=== PATIENT | male | born 1960 | race Caucasian/White ===

== ENCOUNTER 2017-07-27 21:34 | Inpatient (IN) | payer OTHER, SELFPAY ==
[~2017-07-27 21:34] MED LIST: ISOVUE-370 76%-LOCM 1 ML ONE
[2017-07-27] MEDS ORDERED: Morphine 4 MG/ML VIAL ONE (22:01)
[2017-07-27] MEDS ORDERED: Ondansetron HCl/PF 4 MG/2 ML Vial ONE (22:01)
[2017-07-27 22:19] LABS: #Eosinphils 0.2 thou/uL (0.0-0.7); #Monocytes 1.1 thou/uL (0.11-0.59); #Neutrophils 7.4 thou/uL (1.40-6.50); %Basophils 0.4 % (0.0-1.0); %Eosinophils 1.9 % (0.0-10.0); %Lymphocytes 18.9 % (21.0-51.0); %Monocytes 10.4 % (0.0-10.0); %Neutrophils 68.3 % (42.0-75.0); Hemoglobin 16.7 g/dL (14.0-18.0); Mean Corpuscular HGB CONC 34.5 g/dL (32.0-36.0); Mean Corpuscular Hemoglobin 33.5 pg (27.0-31.0); Mean Corpuscular Volume 97.3 fl (80.0-94.0); Mean Platelet Volume 7.4 fL (7.4-10.4); Platelet Count 142 thou/uL (130-400); RBC Distribution Width 11.9 % (11.5-14.5); Red Blood Cell (RBC) Count 4.97 mill/uL (4.70-6.10); White Blood Cell (WBC) Count 10.8 thou/uL (4.8-10.8)
[2017-07-27 22:21] LABS: Bilirubin Negative (Negative); Blood, Urine Negative (Negative); Clarity CLEAR (Clear); Glucose, Urine (Dipstick) Negative (Negative); Leukocyte Negative (Negative); Nitrite Negative (Negative); Protein, Urine (Dipstick) Negative (Neg-Trace); Specific Gravity, Urine 1.021 (1.002-1.036); Urobilinogen 0.2 mg/dL (0.2-1.0)
[2017-07-27 22:39] LABS: BUN (Urea Nitrogen) 16 mg/dL (8.4-25.7); Lipase 16 U/L (8-78); Potassium 3.9 mmol/L (3.5-5.1); Protein, Total 6.7 g/dL (6.0-8.3); Sodium 132 mmol/L (136-145)
[2017-07-27] MEDS ORDERED: hydrALAZINE 20 MG/ML VIAL ONE (22:42)
--- NOTE | 2017-07-27 22:55 | CT ---
CT ANGIOGRAM CHEST WITH 3D RENDERING CT ANGIOGRAM ABDOMEN WITH 3D RENDERIN07/27/17 HISTORY: 57-year-old male with history of hypertension and left flank pain. CHEST CT ANGIOGRAM WITH 3D RENDERING: Mild dilatation of the aortic root at 4.0 cm. Three vessel coronary artery calcific disease. Prominen t vascular calcifications of the aorta without evidence of for aneurysm or dissection. The central pu lmonary arteries are free of thrombus. ABDOMINAL CT ANGIOGRAM WITH 3D RENDERING: There are numerous calcific plaques involving the abdominal aorta, particularly the infrarenal abdomi nal aorta where there is some mild to moderate narrowing as well as a somewhat narrowed bifurcation r egion and moderate narrowing of the right and left common iliac arteries worse on the right side with probable 50 to 70% stenosis of the right proximal common iliac artery and approximately 50% stenosis of the more distal aspects of the right and left common iliac arteries. There is a tiny punctate non obstructing calculus in the upper pole of the right kidney. There is very severe hydronephrosis of th e left kidney with a very markedly dilated extrarenal pelvis. Etiology of which is uncertain, this co uld possibly be related to ureteropelvic junction obstruction. No evidence of aortic aneurysm or diss ection. IMPRESSION: No evidence of aortic aneurysm or dissection. Fairly extensive atherosclerotic calcific plaque involv ing the aorta most marked in the infrarenal abdominal aorta at the bifurcation as well as at least mo derate stenotic changes of the right and left arteries. Tiny nonobstructing right renal calculus. Severe di latation of the left renal pelvis and upper collecting system of uncertain etiology possibly from UPJ obstruction. Small focal area of peripheral calcification involving the spleen, possibly related to old injury. Three vessel coronary artery calcific disease. No evidence for other significant acute p rocess. POS: [facility]
[2017-07-27] MEDS ORDERED: HYDROmorphone 0.5 MG/0.5 ML SYRINGE ONE (23:04)
[2017-07-27 23:14] LABS: Albumin 3.8 g/dL (3.5-5.0)
[2017-07-27 23:15] LABS: Calcium 8.8 mg/dL (7.8-10.44); Chloride 101 mmol/L (98-107)
[2017-07-27 23:16] LABS: Glucose 112 mg/dL (70-105)
[2017-07-27 23:18] LABS: Anion Gap 14 mmol/L (10-20); Bilirubin, Total 0.5 mg/dL (0.2-1.2); Carbon Dioxide 21 mmol/L (22-29)
[2017-07-27 23:19] LABS: Alkaline Phosphatase 142 U/L (40-150)
[2017-07-27 23:20] LABS: Calc. Creatinine Clearance 0 mL/min (70-130); Estimated GFR-MDRD 81
[2017-07-27 23:21] LABS: AST (SGOT) 73 U/L (5-34)
[2017-07-27 23:22] LABS: ALT (SGPT) 96 U/L (8-55)
[2017-07-27] MEDS ORDERED: Ketorolac Tromethamine 30 MG/ML VIAL ONE (23:48)
--- NOTE | 2017-07-27 23:53 | PDOC.FPRHP ---
- History of Present Illness Chief Complaint: Left back pain History of Present Illness: Patient laid down tonight to go to bed and he had intense pain on his Left lower back. he had several episodes of vomitting. he had been feeling well. he denies fever. he has not chest pain or shortness of breath. ED Course: Toradol, dilaudid, hydralazine, morphine, zofran - Allergies/Adverse Reactions Allergies Allergy/AdvReac Type Severity Reaction Status Date / Time No Known Drug Allergies Allergy Verified 07/28/17 01:13 - Home Medications Medication Instructions Recorded Confirmed Type No Known [No Known] 07/28/17 07/28/17 History Comments: he takes b12 and fish oil some times. - History PMHx: CAD sp stents HTN thyroid disorder PSHx: cardiac stents FHx: CAD Social: Currently smokes, drinks etoh, uses marijuana - Review of Systems General: reports: fatigue. denies: fever/chills, weight/appetite/sleep changes , night sweats Eyes: denies: eye pain, vision changes ENT: denies: nasal congestion, rhinorrhea Respiratory: denies: cough, congestion, shortness of breath, exercise intolerance Cardiovascular: denies: chest pain, palpitation, edema, paroxysmal nocturnal dyspnea Gastrointestinal: reports: vomiting, abdominal pain, GI bleeding (some dark stools. last 2 weeks ago.). denies: nausea, diarrhea, constipation Genitourinary: denies: incontinence, dysuria Skin: denies: rashes, lesions, jaundice, itching Musculoskeletal: denies: pain, tenderness Neurological: denies: numbness, syncope Psychological: reports: anxiety, depression - Vital signs BP: 142/84 HR: 88 RR: 18 Tmax: 97.8 Pox: 91 % on room air Wt: 68 kg - Physical Exam Constitutional: NAD, awake, alert and oriented, well developed HEENT: normocephalic and atraumatic, PERRLA, EOMI, no scleral icterus, grossly normal vision Neck: supple, FROM, trachea midline, no thyromegaly Chest: no-tender to palpation, no lesions Heart: RRR, normal S1/S2, no murmurs/rubs/gallops, no edema Lungs: CTAB, no respiratory distress, good air movement, no rales/rhonchi, no wheezing, no retractions Abdomen: soft, non-tender, bowel sounds present, no masses/distention, no hernias, other (no pulsatile masses) -Abdomen: Positive for significant Left CVA tenderness. no tenderness on right. Musculoskeletal: normal structure, normal tone, ROM grossly normal Neurological: no focal deficit, CN II-XII intact, normal sensation Skin: no rash/lesions, good turgor, capillary refill <2 seconds Heme/Lymphatic: no unusual bruising or bleeding, no purpura, no petechia Psychiatric: normal mood and affect, good judgment and insight, intact recent and remote memory FMR H&P: Results - Labs Result Diagrams: 07/28/17 02:59 07/28/17 02:59 Lab results: WBC 10.8 thou/uL (4.8-10.8) 07/27/17 22:10 Hgb 16.7 g/dL (14.0-18.0) 07/27/17 22:10 Hct 48.3 % (42.0-52.0) 07/27/17 22:10 MCV 97.3 fl (80.0-94.0) H 07/27/17 22:10 Plt Count 142 thou/uL (130-400) 07/27/17 22:10 Neutrophils % 68.3 % (42.0-75.0) 07/27/17 22:10 Sodium 132 mmol/L (136-145) L 07/27/17 22:10 Potassium 3.9 mmol/L (3.5-5.1) 07/27/17 22:10 Chloride 101 mmol/L (98-107) 07/27/17 22:10 Carbon Dioxide 21 mmol/L (22-29) L 07/27/17 22:10 BUN 16 mg/dL (8.4-25.7) 07/27/17 22:10 Creatinine 0.96 mg/dL (0.6-1.3) 07/27/17 22:10 Glucose 112 mg/dL (70-105) H 07/27/17 22:10 Calcium 8.8 mg/dL (7.8-10.44) 07/27/17 22:10 Total Bilirubin 0.5 mg/dL (0.2-1.2) 07/27/17 22:10 AST 73 U/L (5-34) H 07/27/17 22:10 ALT 96 U/L (8-55) H 07/27/17 22:10 Alkaline Phosphatase 142 U/L (40-150) 07/27/17 22:10 Serum Total Protein 6.7 g/dL (6.0-8.3) 07/27/17 22:10 Albumin 3.8 g/dL (3.5-5.0) 07/27/17 22:10 Lipase 16 U/L (8-78) 07/27/17 22:10 Urine Ketones Negative mg/dL (Negative) 07/27/17 22:09 Urine Blood Negative (Negative) 07/27/17 22:09 Urine Nitrite Negative (Negative) 07/27/17 22:09 Ur Leukocyte Esterase Negative (Negative) 07/27/17 22:09 - Radiology Interpretation CT scan - abdomen Status: report reviewed by me Additional comment: Negative for AAA but positive for left renal pelvis dilation consistent with obstruction but none seen on left side. FMR H&P: A/P - Problem List (1) Hydronephrosis Current Visit: Yes Status: Acute Code(s): N13.30 - UNSPECIFIED HYDRONEPHROSIS (2) Tobacco abuse Current Visit: Yes Status: Chronic Code(s): Z72.0 - TOBACCO USE (3) CAD (coronary artery disease) Current Visit: Yes Status: Chronic Code(s): I25.10 - ATHSCL HEART DISEASE OF [place] CORONARY ARTERY W/O ANG PCTRS Qualifiers: Coronary Disease-Associated Artery/Lesion type: [place] artery (4) HTN (hypertension) Current Visit: Yes Status: Chronic Code(s): I10 - ESSENTIAL (PRIMARY) HYPERTENSION Qualifiers: Hypertension type: essential hypertension Qualified Code(s): I10 - Essential (primary) hypertension (5) Transaminitis Current Visit: Yes Status: Chronic Code(s): R74.0 - NONSPEC ELEV OF LEVELS OF TRANSAMNS & LACTIC ACID DEHYDRGNSE - Plan #Hydronephrosis- Pain and exam consistent with obstruction, likely from a stone that is not apparent on CT for from stone that passed. patient is beginning to feel better. Urology recommended hydration and pain management overnight and they will see in the morning. #transaminitis- patient has been told he has hep C. will confirm and also get a HIV, rpr #CAD- will check troponin and discuss starting new home meds at discharge in the AM #HTN- states that he is frequently 180s/100s at home and is not on any medications. his symptoms seem unrelated and so we will recommend starting oral therapies in AM if he interested in taking them after discharge. #tobacco abuse- counseled against use. nicotine patch providd #etoh abuse- denies problems with several days of sobriety. Will montior on ASE protocol. #DVT ppx- SCDs Disposition/LOS: 2 days, inpatient Attending Addendum - Attending Addendum Date/Time: 07/28/17 8732 I personally evaluated the patient and discussed the management with Dr. Turner. I agree with the History, Examination, Assessment and Plan documented above with any addition or exceptions noted below. Patient here with acute onset of flank pain. CT evidence of severe hydronephrosis, but UA negative for blood or casts. Patient to be admitted for fluid hydration, pain control and possible urological intervention. BP uncontrolled and we will try to address that while patient is here.
[2017-07-28] MEDS ORDERED: Morphine 5 MG/ML SYRINGE SLOW IVP PRN (00:52)
[2017-07-28 00:55] VITALS: BMI 22.1
[2017-07-28] MEDS ORDERED: Acetaminophen 325 MG TAB PO PRN (02:36)
[2017-07-28] MEDS ORDERED: HYDROcodone/Acetaminophen 5/325 mg Tablet PO PRN (02:36)
[2017-07-28] MEDS ORDERED: Bisacodyl 5 MG TAB PO PRN (02:36)
[2017-07-28] MEDS ORDERED: Calcium Carbonate 500 MG ChewTAB PO PRN (02:36)
[2017-07-28] MEDS ORDERED: Ondansetron ODT 4 MG TAB PO PRN (02:36)
[2017-07-28] MEDS: Sodium Chloride 0.9% 1,000 ML IV SCH ×3 (03:14→18:55)
[2017-07-28 03:16] LABS: #Lymphocytes 1.7 thou/uL (1.20-3.40); #Neutrophils 7.1 thou/uL (1.40-6.50); %Basophils 0.4 % (0.0-1.0); %Eosinophils 0.3 % (0.0-10.0); %Monocytes 9.8 % (0.0-10.0); %Neutrophils 72.6 % (42.0-75.0); Hemoglobin 17.3 g/dL (14.0-18.0); Mean Corpuscular HGB CONC 35.3 g/dL (32.0-36.0); Mean Corpuscular Hemoglobin 34.1 pg (27.0-31.0); Mean Corpuscular Volume 96.6 fl (80.0-94.0); Mean Platelet Volume 7.4 fL (7.4-10.4); Platelet Count 136 thou/uL (130-400); Red Blood Cell (RBC) Count 5.07 mill/uL (4.70-6.10); White Blood Cell (WBC) Count 9.8 thou/uL (4.8-10.8)
[2017-07-28 03:42] LABS: CKMB 0.9 ng/mL (0-6.6); Troponin I Less than 0.010 ng/mL (< 0.028)
[2017-07-28 03:58] LABS: Anion Gap 15 mmol/L (10-20); BUN (Urea Nitrogen) 17 mg/dL (8.4-25.7); Calc. Creatinine Clearance 70 mL/min (70-130); Calcium 9.4 mg/dL (7.8-10.44); Carbon Dioxide 23 mmol/L (22-29); Chloride 103 mmol/L (98-107); Estimated GFR-MDRD 70; Glucose 106 mg/dL (70-105); HIV (1/2) Antibody/Antigen Non-Reactive (NonReactive); HIV 1/2 INDEX 0.07 S/CO (<1.00); Potassium 4.6 mmol/L (3.5-5.1); Sodium 136 mmol/L (136-145)
[2017-07-28 04:58] LABS: Hep C IgG Ab Reflex HepC Qnt (NonReactive); Hep C Index 14.87 S/CO (0-0.79)
[2017-07-28 05:03] LABS: Syphilis Antibody Nonreactive (Nonreactive); Syphilis Antibody Index 0.04 S/CO (<1.00 Non-Reactive)
[2017-07-28] MEDS: Nicotine 21 MG PATCH TD SCH (05:33)
[2017-07-28] MEDS ORDERED: Prevnar 13-Val Conj/PF 0.5 ML SYRINGE IM ONE (09:00)
[2017-07-28] MEDS ORDERED: Enoxaparin Sodium 40 MG/0.4 ML SYRINGE SC SCH (09:00)
[2017-07-28] MEDS: hydrALAZINE 20 MG/ML VIAL SLOW IVP PRN ×2 (09:50→11:04)
[2017-07-28] MEDS: Folic Acid 1 MG TAB PO SCH (09:50)
[2017-07-28] MEDS ORDERED: HYDROcodone/Acetaminophen 7.5/325 mg Tablet PO PRN ×2 (16:58)
[2017-07-28] MEDS ORDERED: hydrALAZINE 20 MG/ML VIAL SLOW IVP PRN (17:21)
[2017-07-28] MEDS ORDERED: NIFEdipine XL 30 MG TAB PO SCH (18:00)
[2017-07-28] MEDS ORDERED: Lisinopril 5 MG TAB PO SCH (18:00)
[2017-07-28] MEDS: Morphine 5 MG/ML SYRINGE SLOW IVP PRN (22:22)
--- NOTE | 2017-07-28 23:14 | CON ---
DATE OF CONSULTATION: 07/28/2017 CONSULTING PHYSICIAN: Family Medicine. CONSULTED PHYSICIAN: Daniel Thomas M.D. REASON FOR CONSULTATION: Severe left flank pain with hydronephrosis. HISTORY OF PRESENT ILLNESS: Mr. Gutierrez is a 57-year-old white male who presented to the emergency ro om with a 1 day history of severe sudden onset left flank pain. He stated the pain was excruciating, 10/10 with a sharp stabbing nature without radiation to the groin. He did not have any hematuria, o nce significantly nauseated, although he did not vomit. He went to the emergency room where his bloo d pressure was found to be significantly elevated, given his history of cardiac stents with hypertens ion. There was concern for a possible aortic dissection, therefore, he underwent a CT aortic dissect ion protocol. No aneurysm or dissection was found within the aorta and his labs were okay with a nor mal urinalysis without blood and a normal creatinine. However, it was noted that he had severe hydro nephrosis on his left kidney with what appeared to be a UPJ obstruction. I was consulted for further assistance on this. He was admitted to the hospital for pain control as his pain was not able to be adequately controlled in the emergency room. His pain did get better as of today, but then has wors ened again recently. He is currently complaining of 8/10 pain on his left flank with associated naus ea. He states he has felt febrile, but he has not run a temperature while in the hospital. On my di scussion with the patient, he states that he has no prior history of hematuria, urinary tract infecti ons, left-sided flank pain. Prior to this, a history of kidney stones prior urologic surgeries or an y prior abdominal surgeries. He never had urinary tract infections as a child. This is the first ti me that he was hearing about possible blockage on his left kidney. ALLERGIES: None. HOME MEDICATIONS: None. PAST MEDICAL HISTORY: 1. Coronary artery disease status post cardiac stents. 2. Hypertension. 3. Thyroid disorder. PAST SURGICAL HISTORY: None other than cardiac stents. FAMILY HISTORY: Significant for coronary artery disease. SOCIAL HISTORY: The patient currently smokes cigarettes. He drinks approximately a 6 pack of beer a day, sometimes more. He does use marijuana, but no other illicit drugs. REVIEW OF SYSTEMS: A 12 point review of systems is unremarkable other than what was commented on the HPI. Specifically, the patient is endorsing nausea without vomiting, and severe left flank pain, bu t otherwise denies chest pain, shortness of breath, difficulty with urination, blood in the urine, ra shes, anterior abdominal pain, shortness of breath. REVIEW OF SYSTEM: The remainder of 12-point review of systems was reviewed and otherwise negative. PHYSICAL EXAMINATION: VITAL SIGNS: Temperature 98, pulse 74, respirations 16, blood pressure 187/112, saturation 95% on ro om air. GENERAL: Appears very uncomfortable, is currently breathing heavily and appears to be a lot of pain. He does answer questions appropriately and is otherwise alert, and communicative. HEENT: Normocephalic, atraumatic. Large jaime. Adequate dentition. Sclerae nonicteric. Pupils ar e symmetric and round. CARDIOVASCULAR: Regular rate and rhythm. Normal S1 and S2, symmetric pulses. CHEST: No increased work of breathing, although he does seem to have an increased respiratory rate, and a slightly tachypneic. Clear anteriorly without wheezes. ABDOMEN: Soft, nondistended, mild tenderness to palpation on the left. Significant left-sided CVA t enderness, no right-sided CVA tenderness, no suprapubic pain. No obvious organomegaly, no abdominal scars. GENITOURINARY: Deferred at this time. EXTREMITIES: No clubbing, cyanosis, or edema. MUSCULOSKELETAL: No joint deformities or joint erythema noted. Full range of motion. NEUROLOGIC: Cranial nerves II-XII appear grossly intact. No focal or sensory motor deficits identif ied. SKIN: Warm, dry, good turgor, no rashes, or lesions. PSYCHIATRIC: Alert and oriented x3, appropriate mood and affect for his current pain level. LABORATORY AND X-RAY FINDINGS: The full set of labs are in the [facility], which I have reviewe d. Of note, the patient's white count is 9.8 with hemoglobin of 17.3, creatinine is currently 1.08. Troponin is less than 0.01. Urinalysis is entirely unremarkable. Urine culture is negative at [address] dissection protocol demonstrates no evidence of aortic aneurysm or dissection. There is fa irly extensive atherosclerosis tiny nonobstructing right renal calculus without evidence of ureteral calculus. There is severe dilatation of the left renal pelvis in upper collecting systems without di lation of the ureter consistent with a possible UPJ obstruction. Other chronic findings are noted wi thin the full report. 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 Given his significant alcoholism, it is poss ible that his high fluid intake has resulted in an acute dilatation of his kidney resulting in his cu rrent pain episode. Since, his pain is not well controlled, I would recommend that we consider some sort of urinary drainage. I discussed both ureteral stents and nephrostomy tubes. I have recommende d nephrostomy tube since it will be more reliable at getting the possible obstruction then a stent an d it will not have to be removed prior to a robotic pyeloplasty, which would necessitate removal of a ureteral stent prior to surgery where as a nephrostomy tube can be kept until the time of surgery an d then removed afterwards. He states he would be in agreement with nephrostomy tube placement. I wo murtazad also like to get a dedicated CT of his kidneys to follow the course of the ureter. This may be a ble to be done in conjunction with his nephrostomy tube placement and nephrostogram. I would request that he have a diet put into his nephrostomy tube to love the course of his ureter, but we can go ah ead and get a CT stone protocol to evaluate the course of the ureter more thoroughly. I will review his CT aortic dissection protocol again and ensure that there is nothing else that I need to see. Ot wise, once his pain is controlled with nephrostomy tube is in place. I expect his blood pressure to improve, this is uncontrolled hypertension, is probably due to inadequate pain control. I will in crease his pain medications to try and see if he can get his pain under better control, but once his pain is controlled. His blood pressure is controlled and he has a nephrostomy tube. He can probably be discharged home and I will follow up with him electively to discuss robot-assisted laparoscopic p yeloplasty as an outpatient. I will continue to follow while he is here and make recommendations as things progress. SUMMARY OF RECOMMENDATIONS: 1. Percutaneous nephrostomy tube placement tomorrow with sedation. 2. Regular diet for now, n.p.o. after midnight. 3. Increased pain medications, which I have written for. 4. We will review CT and order additional imaging if necessary.
[2017-07-29] MEDS: Morphine 5 MG/ML SYRINGE SLOW IVP PRN ×2 (03:09→08:19)
[2017-07-29] MEDS: Sodium Chloride 0.9% 1,000 ML IV SCH ×3 (03:09→19:49)
[2017-07-29] MEDS: Nicotine 21 MG PATCH TD SCH (05:58)
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
[2017-07-29] MEDS: Folic Acid 1 MG TAB PO SCH (08:18)
[2017-07-29 08:44] LABS: #Eosinphils 0.1 thou/uL (0.0-0.7); #Monocytes 0.9 thou/uL (0.11-0.59); #Neutrophils 7.2 thou/uL (1.40-6.50); %Basophils 0.3 % (0.0-1.0); %Eosinophils 0.7 % (0.0-10.0); %Lymphocytes 19.4 % (21.0-51.0); %Monocytes 8.7 % (0.0-10.0); %Neutrophils 70.9 % (42.0-75.0); Hemoglobin 16.6 g/dL (14.0-18.0); Mean Corpuscular HGB CONC 34.3 g/dL (32.0-36.0); Mean Corpuscular Hemoglobin 33.7 pg (27.0-31.0); Mean Corpuscular Volume 98.1 fl (80.0-94.0); Mean Platelet Volume 7.6 fL (7.4-10.4); Platelet Count 120 thou/uL (130-400); RBC Distribution Width 12.1 % (11.5-14.5); Red Blood Cell (RBC) Count 4.92 mill/uL (4.70-6.10); White Blood Cell (WBC) Count 10.2 thou/uL (4.8-10.8)
[2017-07-29] MEDS ORDERED: Amlodipine 10 MG TAB PO SCH (09:00)
[2017-07-29] MEDS ORDERED: Lisinopril 5 MG TAB PO SCH (09:00)
[2017-07-29] MEDS ORDERED: NIFEdipine XL 30 MG TAB PO SCH (09:00)
[2017-07-29 09:06] LABS: Anion Gap 9 mmol/L (10-20); BUN (Urea Nitrogen) 17 mg/dL (8.4-25.7); Calc. Creatinine Clearance 61 mL/min (70-130); Calcium 8.3 mg/dL (7.8-10.44); Carbon Dioxide 23 mmol/L (22-29); Chloride 106 mmol/L (98-107); Estimated GFR-MDRD 60; Glucose 108 mg/dL (70-105); Sodium 134 mmol/L (136-145)
--- NOTE | 2017-07-29 09:10 | PDOC.FM ---
- Subjective Subjective: Pt reports fullness and pain in the left flank. His pain is currently an 8. He is tender to palpation over left flank. Otherwise no acute events. He is scheduled for perc nephrostomy some time today. - Objective Vital Signs & Weight: Vital Signs (12 hours) Temp Pulse Resp BP BP Pulse Ox 07/29/17 08:18 92 133/82 07/29/17 08:17 87 133/82 07/29/17 08:00 97.8 F 76 18 134/79 90 L 07/29/17 05:14 98.5 F 92 20 112/67 94 L 07/29/17 00:47 97.6 F 76 18 126/81 94 L 07/29/17 00:00 126/81 07/28/17 22:53 163/96 H 07/28/17 22:22 74 173/102 H Weight Weight 65.913 kg I&O: 07/28/17 07/29/17 07/30/17 06:59 06:59 06:59 Intake Total 415 1750 Output Total 250 700 Balance 165 1050 Result Diagrams: 07/29/17 08:06 07/29/17 08:06 <Primitivo Cox - Last Filed: 07/29/17 09:08> - Objective Vital Signs & Weight: Vital Signs (12 hours) Temp Pulse Resp BP BP Pulse Ox 07/29/17 08:18 92 133/82 07/29/17 08:17 87 133/82 07/29/17 08:00 97.8 F 76 18 134/79 134/79 92 L 07/29/17 05:14 98.5 F 92 20 112/67 94 L 07/29/17 00:47 97.6 F 76 18 126/81 94 L 07/29/17 00:00 126/81 Weight Weight 65.913 kg I&O: 07/28/17 07/29/17 07/30/17 06:59 06:59 06:59 Intake Total 415 1750 Output Total 250 700 Balance 165 1050 Result Diagrams: 07/29/17 08:06 07/29/17 08:06 <Malcolm Brice - Last Filed: 07/29/17 11:58> Phys Exam - Physical Examination Constitutional: NAD HEENT: PERRLA, sclera anicteric Neck: no nodes, no JVD Respiratory: no wheezing, no rales, no rhonchi, clear to auscultation bilateral Cardiovascular: RRR, no significant murmur, no rub Gastrointestinal: soft, positive bowel sounds ttp left flank Musculoskeletal: no edema, pulses present Neurological: non-focal, moves all 4 limbs Skin: no rash <Primitivo Cox - Last Filed: 07/29/17 09:08> Dx/Plan (1) Hydronephrosis Code(s): N13.30 - UNSPECIFIED HYDRONEPHROSIS Status: Acute (2) CAD (coronary artery disease) Code(s): I25.10 - ATHSCL HEART DISEASE OF [place] CORONARY ARTERY W/O ANG PCTRS Status: Chronic QualifierTitle: Coronary Disease-Associated Artery/Lesion type: [place] artery (3) HTN (hypertension) Code(s): I10 - ESSENTIAL (PRIMARY) HYPERTENSION Status: Chronic QualifierTitle: Hypertension type: essential hypertension Qualified Code( s): I10 - Essential (primary) hypertension (4) Tobacco abuse Code(s): Z72.0 - TOBACCO USE Status: Chronic (5) Transaminitis Code(s): R74.0 - NONSPEC ELEV OF LEVELS OF TRANSAMNS & LACTIC ACID DEHYDRGNSE Status: Chronic - Plan Plan: 1) Hydronephrosis- Urology saw pt yesterday and the plan is for pt to have percutaneous nephrostomy placed today. Until then continue pain control. 2)transaminitis- Hep C ab pos, viral load pending. 3)CAD- troponin negative. Will need aspirin upon d/c. Hold for now 2/2 possibility of surgical intervention 4)HTN- hydralazine prn. Lisinopril and nifedapine given w/ good response 5)tobacco abuse- nicotine patch 6)alcohol abuse- ASE protocol <Primitivo Cox - Last Filed: 07/29/17 09:08> (1) Hydronephrosis Code(s): N13.30 - UNSPECIFIED HYDRONEPHROSIS Status: Acute (2) Tobacco abuse Code(s): Z72.0 - TOBACCO USE Status: Chronic (3) CAD (coronary artery disease) Code(s): I25.10 - ATHSCL HEART DISEASE OF [place] CORONARY ARTERY W/O ANG PCTRS Status: Chronic Qualifiers: Coronary Disease-Associated Artery/Lesion type: [place] artery (4) HTN (hypertension) Code(s): I10 - ESSENTIAL (PRIMARY) HYPERTENSION Status: Chronic Qualifiers: Hypertension type: essential hypertension Qualified Code(s): I10 - Essential (primary) hypertension (5) Transaminitis Code(s): R74.0 - NONSPEC ELEV OF LEVELS OF TRANSAMNS & LACTIC ACID DEHYDRGNSE Status: Chronic <Malcolm Brice - Last Filed: 07/29/17 11:58> Attending Addendum - Attending Addendum Date/Time: 07/29/17 115 I personally evaluated the patient and discussed the management with Dr. Cox. I agree with the History, Examination, Assessment and Plan documented above with any addition or exceptions noted below. Patient continues to be in pain, but is going for percutaneous nephrostomy tube placement soon for his severe L sided hydronephrosis. Await further recs from Urology after procedure, and will ensure pain control is adequate. Hep C labs still pending. <Malcolm Brice - Last Filed: 07/29/17 11:58>
[2017-07-29 09:59] LABS: PTT 28.2 SEC (22.9-36.1)
[2017-07-29] MEDS ORDERED: Fentanyl 100 MCG/2 ML VIAL ONE (10:51)
[2017-07-29] MEDS ORDERED: Midazolam HCl 2 mg/2 ml Vial ONE (10:51)
[2017-07-29] MEDS ORDERED: cefTRIAXone\\ROCEPHIN 1 GM, Syringe 0.4 ML in Sterile Water 9.6 ML SLOW IVP SCH (11:45)
--- NOTE | 2017-07-29 14:14 | PRG ---
DATE OF SERVICE: 07/29/2017 SUBJECTIVE: The patient underwent a percutaneous nephrostomy tube placement today. He is feeling si gnificantly better with near complete resolution of all of his pain. He did undergo a CT stone raina col which did not demonstrate any calcifications or ureteral stones within the distal ureter indicati ng that he indeed does have a likely UPJ obstruction. I am awaiting the final report from his nephro stogram on his percutaneous nephrostomy tube placement. His blood pressure has also gotten better. He denies any nausea, vomiting, fevers or persisting flank pain. He has only had a minimal amount of discomfort from the nephrostomy tube. OBJECTIVE: VITAL SIGNS: Temperature 97.8, pulse 96, respirations 18, blood pressure 138/84, saturation 93% on r oom air. GENERAL: No apparent distress, communicative and alert. CARDIOVASCULAR: Regular rate and rhythm. CHEST: No increased work of breathing. ABDOMEN: Soft, nontender, nondistended, positive bowel sounds. BACK: Left nephrostomy tube in place with clear yellow urine, which is only slightly blood tinged. EXTREMITIES: No clubbing, cyanosis or edema. ASSESSMENT AND PLAN: This is a 57-year-old white male with a left UPJ obstruction status post percut aneous nephrostomy tube placement with resolution of his Dietl's crisis. He is doing much better now and his blood pressure has appropriately responded now that his pain is under control. I see that dennis underwood is getting some workup for hepatitis C and I think that Family Medicine can continue their workup, but from my standpoint, he has temporized and I can see him on an outpatient basis at this standpoint to set him up for his pyeloplasty, which we will arrange once he comes to see me in the office. I w ill go ahead and sign off at this time. He will need to keep his nephrostomy tube to gravity drainag e and get proper instruction from the nursing staff on care instructions. I will see him back in the office in a few weeks to go over his surgical preparation and ensure that he is cleared for surgery. He will likely need a cardiac clearance given his atherosclerotic disease and poor health care prio r to this, but we can do this as an outpatient as well.
--- NOTE | 2017-07-29 14:40 | SPC ---
ANTEGRADE LEFT PYELOGRAM AND LEFT PERCUTANEOUS NEPHROSTOMY TUBE PLACEMENT: DATE: 07/29/17. HISTORY: Severe left hydronephrosis and findings on CT exam suggesting UPJ-type obstruction. Nephrostomy tube placement was requested. FLUOROSOCPY: Total fluoroscopy time is 1.8 minutes with total dose of 6951 mGy*^cm2. TECHNIQUE: The procedure including the risks and complications were explained to the patient and informed consen t was obtained. Conscious sedation was performed with the intravenous administration of 1 mg of Vers ed and 50 mcg of Fentanyl. Rocephin 1 gram was also administered intravenously. FINDINGS: Limited sonographic evaluation of the left kidney was performed. An area overlying the mid portion l eft kidney posterior calyx was marked and the area was meticulously prepped and draped in the usual s terile fashion. The skin and subcutaneous tissues were infiltrated with buffered 1% Lidocaine for local anesthesia. Utilizing concurrent real-time ultrasound guidance, a 21 gauge micropuncture needle was advanced into the peripheral calyx mid portion of left kidney. There was a return of clear urine. Contrast was i njected confirming placement in the collecting system. The needle was then exchanged over a 0.018-in ch guidewire for a 5 Ukrainian introducer sheath. The guidewire was then exchanged for a 0.035 inch Amp latz guidewire for an 8 Ukrainian tissue dilator followed by placement of an 8 Ukrainian percutaneous nephr ostomy tube. Nephrostomy tube was coiled within the partially dilated renal pelvis. There was a sergei sk return of clear urine. Urine was aspirated, and contrast was then injected into the collecting sy stem. However, no contrast was seen extending down the left ureter, and the left UPJ is also not wel l evaluated. The nephrostomy tube was placed to gravity drainage and sutured in place utilizing 2-0 Ethilon suture material. A dry sterile dressing was placed. The patient tolerated the procedure well and without immediate complication. The patient was transpo rted to his hospital room in stable condition. FINDINGS: Antegrade left pyelogram demonstrates severe left hydronephrosis. No contrast could be seen extendin g down the left ureter. A left-sided 8 Ukrainian percutaneous nephrostomy tube was successfully placed with return of clear urine. The specimen was sent for labs, although urine did not appear particular ly infected given the clear appearance. IMPRESSION: Severe left hydronephrosis with technically successful placement of a left-sided nephrostomy tube. POS: [facility]
[2017-07-29 21:30] VITALS: BP 122/75; TEMP 98.1
[2017-07-30] MEDS ORDERED: Pantoprazole 40 MG VIAL IVP SCH (09:00)
--- NOTE | 2017-07-30 11:27 | DIS-2 ---
DATE OF SERVICE: 07/29/2017 LOCATION: [place], [place]. DATE OF ADMISSION: 07/27/2017 DATE OF DISCHARGE: 07/29/2017 ADMITTING ATTENDING: Dr. Malcolm Brice. DISCHARGE ATTENDING: Dr. Malcolm Brice. COSIGNER: Dr. Malcolm Brice. CONSULTATIONS: Urology, Dr. Daniel Thomas. PROCEDURES: 1. CT dissection protocol done on 07/27/2017 showed no evidence of aneurysm or dissection, but there was fairly extensive atherosclerotic calcific plaque along the aorta, most markedly in the infrarena l abdominal aorta at the bifurcation. There is a tiny nonobstructing renal calculus. There is sever e dilatation of the left renal pelvis in the upper collecting system of uncertain etiology, possibly from UPJ obstruction. A small focal area of peripheral calcification involving the spleen, possibly related to old injury. There is 3-vessel coronary artery calcific disease. No evidence for other si gnificant acute process. 2. Abdomen and pelvis CT stone protocol done on 08/13/2017 showed severe left hydronephrosis with fi ndings related to the ureteropelvic junction-type obstruction. There is contrast seen within the lef t renal collecting system with contrast seen outside the left renal pelvis and left kidney with left perinephric stranding and fluid present. There is no right hydronephrosis present. There is a vicar ious excretion of contrast in the gallbladder and the gallbladder is distended. There is a small adriano unt of free fluid in the pelvis. Dense vascular calcifications. Fatty infiltration of the liver. 3. Percutaneous nephrostomy tube placement for left hydronephrosis done on 07/29/2017 showed severe left hydronephrosis and successful placement of a left-sided nephrostomy tube. FINAL DIAGNOSES: 1. Dietl's crisis. 2. Hydronephrosis. SECONDARY DIAGNOSES: 1. Hepatitis C. 2. Coronary artery disease. 3. Hypertension. 4. Transaminitis. 5. Macrocytic anemia. DISCHARGE MEDICATIONS: 1. Folic acid 1 mg p.o. daily. 2. Lisinopril 5 mg p.o. daily. 3. MiraLax 17 grams p.o. daily. DISCONTINUED MEDICATIONS: None. HISTORY OF PRESENT ILLNESS AND HOSPITAL COURSE: The patient is a 57-year-old male, who presented wit h acute onset left lower back pain and several episodes of vomiting that came on abruptly. He denied any fever, chest pain, or shortness of breath. Denied trauma. On presentation to the ED, the patie nt's blood pressure was found to be elevated approximately 180 systolic and there is concern for poss ible aortic dissection given the patient's left flank pain. However, CT scan noted a severe hydronep hrosis of the left renal pelvis, although there is no stone noted on either CT. Ultimately, the kati ent was found to be in Dietl's crisis with an aberrant vessel causing spasm of the UPJ junction, and he was eventually taken for a nephrostomy tube placement per Urology recommendations. He will ultima tely need removal of nephrostomy tube and further procedural intervention by Urology and has been ins tructed to follow up in approximately 2 weeks following discharge. The patient's blood pressure had trended down to 122/75 prior to discharge with the combination of both pain control and the addition of lisinopril for blood pressure control. PERTINENT LABORATORY STUDIES: From this visit include a positive hepatitis C antibody screen and a h epatitis C RNA, ulcerative colon that showed the patient had an active hepatitis C infection. HIV st udy was negative and RPR study was negative as well. The patient was noted to have an AST of 73 and ALT of 96, and a CT that showed evidence of fatty infiltration of the liver. Additionally, patient's MCV was mildly elevated at 98.1. Coag studies were within normal limits including PT/INR and PTT. Urinalysis was negative and a urine collection after nephrostomy tube placement was negative for any evidence of infection and urine culture showed no growth at 36 hours. Ultimately, the patient had a complete resolution of pain and symptoms after the left nephrostomy tube was placed and the hydroneph rosis resolved. DISPOSITION: The patient left the hospital in stable condition. DISCHARGE INSTRUCTIONS: 1. Location: Home. 2. Diet: Heart healthy. 3. Activity: Ad anish. 4. Followup: With [facility] in [place] in 7-10 days following discharge and follow up with Dr. Luis Alfredo Thomas in 2-3 weeks following discharge.
[2017-07-30 13:19] LABS: Hep C PCR-Quant 1350000 IU/mL (.)
== END 2017-07-29 21:30 | disposition home or self-care (01) | DRG 694 ==
LOC: ERS 21:34 → T4-B 23:52
PROVIDERS: ADMIT Family Medicine; ATTEND Family Medicine
PROC: 0T9730Z Drainage of Left Ureter with Drainage Device, Percutaneous Approach (ICD-10-PCS; principal; 2017-07-29)
PROC: BT1F1ZZ Fluoroscopy of Left Kidney, Ureter and Bladder using Low Osmolar Contrast (ICD-10-PCS; 2017-07-29)
DX: N13.0 Hydronephrosis with ureteropelvic junction obstruction (principal); F17.210 Nicotine dependence, cigarettes, uncomplicated; I25.10 Atherosclerotic heart disease of native coronary artery without angina pectoris; I10 Essential (primary) hypertension; Z95.5 Presence of coronary angioplasty implant and graft; R74.0 Nonspecific elevation of levels of transaminase and lactic acid dehydrogenase [LDH]
CPT/HCPCS: 36415; 50430; 50432; 71275; 74176; 76942; 80048; 80053; 81003; 82553; 83690; 84484; 85025; 85610; 85730; 86780; 86803; 87070; 87086; 87205; 87389; 87522; 90471; 90670; 93005; 96374; 96375; 99152; 99153; J2270; A4216; G0009; J0360; J0696; J1170; J1885; J2250; J2405; J3010

== ENCOUNTER → 2017-09-08 | Day surgery (SDC) | payer OTHER, SELFPAY ==
[~2017-09-08] MED LIST changes: -ISOVUE-370 76%-LOCM 1 ML ONE; +Iopamidol 300 61% 30 ML VIAL ONE
[2017-09-08 07:14] VITALS: TEMP 97.6; BMI 21.2
--- NOTE | 2017-09-08 10:57 | SPC ---
NEPHROSTOMY TUBE EXCHANGE: History: Obstructed left renal collecting system. Dosimetry: 0.8 minutes of fluoroscopy, DAP 7.3 mGy*cm^2. Technique: Informed consent was obtained from the patient. The tract of the left nephrostomy tube was prepped an d draped in the usual sterile manner and anesthetized using a 1% Lidocaine solution. The nephrostomy tube was injected and a nephrostogram obtained. The nephrostomy tube was then cut and an 035 glide wi re was placed into the left collecting system. The old nephrostomy tube was removed. A new nephrostom y tube was placed over the wire. IMPRESSION: Successful placement of new left sided nephrostomy tube. The catheter was then sown into place. POS: BERNA[facility]
== END ==
LOC: SPEC 06:48
PROVIDERS: ATTEND Urology
PROC: 0T25X0Z Change Drainage Device in Kidney, External Approach (ICD-10-PCS; principal; 2017-09-08)
DX: Q62.11 Congenital occlusion of ureteropelvic junction (principal); I10 Essential (primary) hypertension; I25.10 Atherosclerotic heart disease of native coronary artery without angina pectoris; F17.210 Nicotine dependence, cigarettes, uncomplicated; E07.9 Disorder of thyroid, unspecified; Z79.899 Other long term (current) drug therapy; Z95.5 Presence of coronary angioplasty implant and graft
CPT/HCPCS: 50431; 50435; 75984; C1729; C1769

== ENCOUNTER 2017-11-25 08:32 | Emergency (ER) | payer SELFPAY ==
[2017-11-25 09:36] LABS: #Basophils 0.1 thou/uL (0.0-0.2); #Eosinphils 0.3 thou/uL (0.0-0.7); #Lymphocytes 2.4 thou/uL (1.20-3.40); #Monocytes 1.1 thou/uL (0.11-0.59); #Neutrophils 4.6 thou/uL (1.40-6.50); %Basophils 0.8 % (0.0-1.0); %Eosinophils 3.6 % (0.0-10.0); %Lymphocytes 27.8 % (21.0-51.0); %Neutrophils 54.8 % (42.0-75.0); Hemoglobin 17.4 g/dL (14.0-18.0); Mean Corpuscular HGB CONC 34.1 g/dL (32.0-36.0); Mean Corpuscular Hemoglobin 33.3 pg (27.0-31.0); Mean Corpuscular Volume 97.7 fL (78.0-98.0); Mean Platelet Volume 7.6 fL (7.4-10.4); Platelet Count 143 thou/uL (130-400); Red Blood Cell (RBC) Count 5.21 mill/uL (4.70-6.10); White Blood Cell (WBC) Count 8.4 thou/uL (4.8-10.8)
[2017-11-25 09:50] LABS: ALT (SGPT) 138 U/L (8-55); AST (SGOT) 118 U/L (5-34); Albumin 3.9 g/dL (3.5-5.0); Alkaline Phosphatase 187 U/L (40-150); Anion Gap 13 mmol/L (10-20); BUN (Urea Nitrogen) 14 mg/dL (8.4-25.7); Bilirubin, Total 0.7 mg/dL (0.2-1.2); Calc. Creatinine Clearance 0 mL/min (70-130); Calcium 10.2 mg/dL (7.8-10.44); Carbon Dioxide 24 mmol/L (22-29); Chloride 107 mmol/L (98-107); Estimated GFR-MDRD Greater than 90; Globulin 3.8 g/dL (2.4-3.5); Glucose 105 mg/dL (70-105); Potassium 5.4 mmol/L (3.5-5.1); Protein, Total 7.7 g/dL (6.0-8.3); Sodium 139 mmol/L (136-145)
[2017-11-25 10:03] LABS: Bilirubin Negative (Negative); Blood, Urine Small (Negative); Clarity CLOUDY (Clear); Glucose, Urine (Dipstick) Negative (Negative); Leukocyte Large (Negative); Nitrite Positive (Negative); Protein, Urine (Dipstick) Negative (Neg-Trace); Specific Gravity, Urine 1.013 (1.002-1.036); Urobilinogen 0.2 mg/dL (0.2-1.0); pH, Urine 5.5 (5.0-9.0)
[2017-11-25 10:07] LABS: Bacteria/HPF 4+ HPF (None Seen); Hyaline Casts/LPF 0-3 HYALINE CAST LPF (0-3 Hyaline); Pathc Cast-AUWi Flag 0.14 (0-2.49); Squamous Epithelial None Seen HPF (0-3)
--- NOTE | 2017-11-25 10:50 | ULT ---
LIMITED RENAL ULTRASOUND: 11/25/2017 PROVIDED CLINICAL HISTORY: Blocked left nephrostomy tube. FINDINGS: The left kidney measures about 11.5 x 6.3 x 5.2 cm and demonstrates moderate hydronephrosis. A simpl e appearing left renal cyst is also seen. The urinary bladder appears unremarkable. Bilateral urete ral jets are seen, though the outboard motor inspector describes the left ureteral jet as weak. IMPRESSION: Distention of the left pelvicalyceal system. POS: BERNA[facility]
--- NOTE | 2017-11-25 15:57 | SPC ---
LEFT PERCUTANEOUS NEPHROSTOMY EXCHANGE UNDER FLUOROSCOPIC GUIDANCE 11/25/17 HISTORY: Nonfunctioning left percutaneous nephrostomy catheter. FINDINGS: After explaining the procedure and answering all questions, the external portion of the left percutan eous nephrostomy catheter was sterilely prepped and draped. Gentle pressure of contrast was used to o pacify the dilated left renal collecting system. Approximately 50 mL of cloudy urine was aspirated an d a small amount of contrast injected. A 0.035 Glidewire was carefully placed through the catheter to hold position. The old nephrostomy cat heter was exchanged for a new 8 Ukrainian locking loop Zenpriseers catheter. Position was confirmed with fl uoroscopy and a small amount of contrast. The catheter was secured externally and left draining to [facility]. The patient tolerated the procedure well and was returned in improved condition. Fluoro time equals 2.2 minutes. IMPRESSION: Technically successful fluoroscopic guidance exchange left percutaneous nephrostomy catheter with goo d function. POS: BERNABE
--- NOTE | 2017-11-30 12:43 | SPC ---
LEFT PERCUTANEOUS NEPHROSTOMY EXCHANGE UNDER FLUOROSCOPIC GUIDANCE 11/25/17 HISTORY: Nonfunctioning left percutaneous nephrostomy catheter. FINDINGS: After explaining the procedure and answering all questions, the external portion of the left percutan eous nephrostomy catheter was sterilely prepped and draped. Gentle pressure of contrast was used to o pacify the dilated left renal collecting system. Approximately 50 mL of cloudy urine was aspirated an d a small amount of contrast injected. A 0.035 Glidewire was carefully placed through the catheter to hold position. The old nephrostomy cat heter was exchanged for a new 8 Wolof locking loop skVocalizeLocalers catheter. Position was confirmed with fl uoroscopy and a small amount of contrast. The catheter was secured externally and left draining to [facility]. The patient tolerated the procedure well and was returned in improved condition. Fluoro time equals 2.2 minutes. IMPRESSION: Technically successful fluoroscopic guidance exchange left percutaneous nephrostomy catheter with goo d function.
== END 2017-11-25 14:40 | disposition home or self-care (01) ==
LOC: ERS 08:32
DX: T83.092A Other mechanical complication of nephrostomy catheter, initial encounter (principal); I25.2 Old myocardial infarction; E78.5 Hyperlipidemia, unspecified; I10 Essential (primary) hypertension; F17.210 Nicotine dependence, cigarettes, uncomplicated
CPT/HCPCS: 36415; 50431; 50435; 75984; 76775; 80053; 81003; 81015; 85025; 87070; 87077; 87086; 87186; 87205; C1729; C1769

== ENCOUNTER 2018-02-02 06:47 | Day surgery (SDC) | payer OTHER ==
[2018-02-02 09:05] VITALS: BP 176/110; TEMP 97.4; BMI 22.3
[2018-02-02] MEDS ORDERED: cefTRIAXone\\ROCEPHIN 1 GM VIAL IM SCH (09:30)
[2018-02-02] MEDS ORDERED: Lidocaine 1% PF 5 ML VIAL FS SCH (09:30)
--- NOTE | 2018-02-02 11:42 | SPC ---
PROCEDURE LEFT PERCUTANEOUS NEPHROSTOMY TUBE EXCHANGE: INDICATION: The patient has a chronic indwelling left percutaneous nephrostomy catheter which drains the left kid vani secondary to a left UPJ obstruction. The patient represents every 4-6 weeks for tube exchange an d presents today for a routine tube exchange. FINDINGS: A new 8 Maldivian percutaneous nephrostomy catheter was placed over an 0.035 Glidewire which was coiled within the renal pelvis. The new catheter showed adequate position and function and was sutured in p lace at the skin surface with a sterile dressing. PROCEDURE NOTE: The indwelling catheter was injected with iodinated contrast. Contrast was difficult to inject indic ating obstruction of the tube at the pigtail level. A small amount of contrast was able to be inject ed which opacified the dilated renal pelvis. Attempts to thread an 0.035 wire through th catheter were unsuccessful. Several wires were used incl uding a Bentsen wire, Amplatz, and a stiff glide. The indwelling nephrostomy catheter was occluded a t the level of the pigtail due to debris and calcification. The angle-tip stiff Glidewire was used to advance along the track of the tube. This was successful i n directing the tip of the wire into the renal pelvis. The wire was then coiled within the renal pel vis. The indwelling catheter was then removed after unlocking the pigtail. A new 8 Maldivian nephrostomy cat heter was then advanced over the 0.035 Glidewire which as coiled within the renal pelvis. The wire a nd stiffener were removed. The new pigtail was performed within the pelvis. Contrast was injected a nd the pigtail demonstrated adequate position and function. The catheter was then sutured at the ski n and sterile dressing was placed. There were no complications. POS: [facility]
== END 2018-02-02 10:10 | disposition home or self-care (01) ==
LOC: SPEC 06:47
PROVIDERS: ATTEND Urology
PROC: 0T25X0Z Change Drainage Device in Kidney, External Approach (ICD-10-PCS; principal; 2018-02-02)
DX: Z43.6 Encounter for attention to other artificial openings of urinary tract (principal); N13.5 Crossing vessel and stricture of ureter without hydronephrosis; I25.10 Atherosclerotic heart disease of native coronary artery without angina pectoris; I10 Essential (primary) hypertension; E07.9 Disorder of thyroid, unspecified; F17.200 Nicotine dependence, unspecified, uncomplicated; Z79.899 Other long term (current) drug therapy; Z95.5 Presence of coronary angioplasty implant and graft
CPT/HCPCS: 50431; 50435; 75984; C1769; J0696; J2001

== ENCOUNTER 2018-02-22 11:12 | Emergency (ER) | payer OTHER ==
[2018-02-22 11:56] LABS: #Basophils 0.1 thou/uL (0.0-0.2); #Eosinphils 0.6 thou/uL (0.0-0.7); #Lymphocytes 2.9 thou/uL (1.20-3.40); #Monocytes 1.2 thou/uL (0.11-0.59); #Neutrophils 4.2 thou/uL (1.40-6.50); %Basophils 0.8 % (0.0-1.0); %Eosinophils 6.2 % (0.0-10.0); %Lymphocytes 32.6 % (21.0-51.0); %Monocytes 13.2 % (0.0-10.0); %Neutrophils 47.3 % (42.0-75.0); Mean Corpuscular HGB CONC 32.1 g/dL (32.0-36.0); Mean Corpuscular Hemoglobin 31.6 pg (27.0-31.0); Mean Corpuscular Volume 98.5 fL (78.0-98.0); Mean Platelet Volume 8.1 fL (7.4-10.4); Platelet Count 174 thou/uL (130-400); RBC Distribution Width 11.4 % (11.5-14.5); Red Blood Cell (RBC) Count 5.36 mill/uL (4.70-6.10); White Blood Cell (WBC) Count 8.9 thou/uL (4.8-10.8)
[2018-02-22] MEDS ORDERED: Ketorolac Tromethamine 30 MG/ML VIAL ONE (12:10)
[2018-02-22 12:16] LABS: Bilirubin Negative (Negative); Blood, Urine Large (Negative); Clarity CLOUDY (Clear); Glucose, Urine (Dipstick) Negative (Negative); Leukocyte Moderate (Negative); Nitrite Negative (Negative); Protein, Urine (Dipstick) 100 mg/dL (Neg-Trace)
[2018-02-22 12:17] LABS: Bacteria/HPF Rare-Few HPF (None Seen); Hyaline Casts/LPF 4-6 HYALINE CAST LPF (0-3 Hyaline); RBC/HPF GREATER THAN 50-TNTC HPF (0-3); Squamous Epithelial 0-3 HPF (0-3)
[2018-02-22 12:19] LABS: Bilirubin Negative (Negative); Blood, Urine Negative (Negative); Clarity CLEAR (Clear); Glucose, Urine (Dipstick) Negative (Negative); Leukocyte Moderate (Negative); Nitrite Negative (Negative); Protein, Urine (Dipstick) Negative (Neg-Trace); Specific Gravity, Urine 1.013 (1.002-1.036)
[2018-02-22 12:21] LABS: Bacteria/HPF 1+ HPF (None Seen); Hyaline Casts/LPF 0-3 HYALINE CAST LPF (0-3 Hyaline); RBC/HPF 0-3 HPF (0-3); Squamous Epithelial None Seen HPF (0-3)
[2018-02-22 12:41] LABS: ALT (SGPT) 106 U/L (8-55); AST (SGOT) 87 U/L (5-34); Alkaline Phosphatase 180 U/L (40-150); Anion Gap 11 mmol/L (10-20); BUN (Urea Nitrogen) 21 mg/dL (8.4-25.7); Bilirubin, Total 1.2 mg/dL (0.2-1.2); Calc. Creatinine Clearance 0 mL/min (70-130); Calcium 10.5 mg/dL (7.8-10.44); Carbon Dioxide 30 mmol/L (22-29); Chloride 102 mmol/L (98-107); Estimated GFR-MDRD 79; Globulin 4.1 g/dL (2.4-3.5); Glucose 100 mg/dL (70-105); Potassium 5.3 mmol/L (3.5-5.1); Protein, Total 8.1 g/dL (6.0-8.3); Sodium 138 mmol/L (136-145)
--- NOTE | 2018-02-26 23:20 | EKG ---
Test Reason : Blood Pressure : / mmHG Vent. Rate : 068 BPM Atrial Rate : 068 BPM P-R Int : 146 ms QRS Dur : 072 ms QT Int : 384 ms P-R-T Axes : 064 066 072 degrees QTc Int : 408 ms Normal sinus rhythm Nonspecific ST abnormality Abnormal ECG Confirmed by JANE CARRION DO ([id number]), photo editor HOLLAND WALKER ([id number]) on 02/26/2018 11:19:48 PM Referred By: Confirmed By:JANE CARRION DO
== END 2018-02-22 13:41 | disposition home or self-care (01) ==
LOC: ERS 11:12
DX: R10.9 Unspecified abdominal pain (principal); I25.2 Old myocardial infarction; E78.5 Hyperlipidemia, unspecified; F17.210 Nicotine dependence, cigarettes, uncomplicated; Z79.899 Other long term (current) drug therapy
CPT/HCPCS: 80053; 81003; 81015; 85025; 87077; 87086; 87186; 93005; 96374; J1885

== ENCOUNTER 2018-02-24 06:49 | Day surgery (SDC) | payer OTHER ==
[2018-02-23 11:16] VITALS: BMI 22.5
--- NOTE | 2018-02-24 10:06 | SPC ---
LEFT RENAL NEPHROSTOMY TUBE EXCHANGE: HISTORY: Patient with congenital left ureteropelvic junction obstruction. RADIATION DOSIMETRY: 22 Gy per cm2. FLUOROSCOPY: 2.5 minutes. TECHNIQUE: Informed consent was obtained from the patient. The left nephrostomy tube site was prepped and drape d in the usual sterile manner. Contrast was injected to confirm position. The nephrostomy tube was cut using a scalpel. An 0.035 Glidewire was introduced into the tract. The old catheter was removed , and a new 8 Urdu catheter was placed over the wire, into the left collecting system. Position wa s confirmed using fluoroscopy. IMPRESSION: Successful left-sided nephrostomy tube exchange. POS: HELADIO
[2018-02-24 10:07] VITALS: BP 140/94; TEMP 97.7
== END 2018-02-24 09:10 | disposition home or self-care (01) ==
LOC: SPEC 06:49
PROVIDERS: ATTEND Urology
PROC: 0T25X0Z Change Drainage Device in Kidney, External Approach (ICD-10-PCS; principal; 2018-02-24)
DX: Z43.6 Encounter for attention to other artificial openings of urinary tract (principal); I10 Essential (primary) hypertension; I25.10 Atherosclerotic heart disease of native coronary artery without angina pectoris; E78.5 Hyperlipidemia, unspecified; Z95.5 Presence of coronary angioplasty implant and graft; Z79.899 Other long term (current) drug therapy
CPT/HCPCS: 50431; 50435; 75984; C1729; C1769

== ENCOUNTER 2018-03-02 23:42 | Inpatient (IN) | payer OTHER ==
[2018-03-02] MEDS ORDERED: Nitroglycerin 0.4 MG TAB (25 Tab Bottle) ONE (23:55)
[2018-03-03 00:11] LABS: #Basophils 0.1 thou/uL (0.0-0.2); #Eosinphils 0.5 thou/uL (0.0-0.7); #Monocytes 1.1 thou/uL (0.11-0.59); #Neutrophils 4.4 thou/uL (1.40-6.50); %Basophils 0.9 % (0.0-1.0); %Eosinophils 5.2 % (0.0-10.0); %Lymphocytes 39.3 % (21.0-51.0); %Monocytes 11.3 % (0.0-10.0); %Neutrophils 43.4 % (42.0-75.0); Hemoglobin 17.1 g/dL (14.0-18.0); Mean Corpuscular HGB CONC 33.7 g/dL (32.0-36.0); Mean Corpuscular Hemoglobin 33.3 pg (27.0-31.0); Mean Corpuscular Volume 98.9 fL (78.0-98.0); Mean Platelet Volume 7.5 fL (7.4-10.4); Platelet Count 194 thou/uL (130-400); RBC Distribution Width 11.6 % (11.5-14.5); Red Blood Cell (RBC) Count 5.14 mill/uL (4.70-6.10); White Blood Cell (WBC) Count 10.1 thou/uL (4.8-10.8)
[2018-03-03 00:31] LABS: ALT (SGPT) 91 U/L (8-55); AST (SGOT) 85 U/L (5-34); Albumin 3.4 g/dL (3.5-5.0); Alkaline Phosphatase 186 U/L (40-150); Anion Gap 12 mmol/L (10-20); BUN (Urea Nitrogen) 18 mg/dL (8.4-25.7); Bilirubin, Total 0.7 mg/dL (0.2-1.2); Calc. Creatinine Clearance 0 mL/min (70-130); Calcium 9.1 mg/dL (7.8-10.44); Carbon Dioxide 24 mmol/L (22-29); Chloride 106 mmol/L (98-107); Estimated GFR-MDRD 69; Globulin 4.3 g/dL (2.4-3.5); Glucose 115 mg/dL (70-105); Potassium 4.4 mmol/L (3.5-5.1); Protein, Total 7.7 g/dL (6.0-8.3); Sodium 138 mmol/L (136-145)
[2018-03-03 00:35] LABS: Troponin I Less than 0.010 ng/mL (< 0.028)
--- NOTE | 2018-03-03 01:46 | PDOC.FPRHP ---
- History of Present Illness Chief Complaint: Chest pain History of Present Illness: This is a 57 yo male with a PMH of CAD s/p 2 stents in 2002, [facility] who presents to the ED with a cc of chest pain. He states that the pain stated about 1 week ago. He describes pain as dull pain and similar to the pain he had when he required stents. He reports 1-2 episodes of pain a day until last night when it was a 10/10 pain. He reports the pain has occurred while he was active and passive. His pain is associated sob. In addition, pt. 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 He reports a recent infection requiring cipro which he is currently taking. His urologist is Dr. Quick who states she will work on his kidneys once his cardiac status is improved. - Allergies/Adverse Reactions Allergies Allergy/AdvReac Type Severity Reaction Status Date / Time No Known Drug Allergies Allergy Verified 02/23/18 11:11 - Home Medications Medication Instructions Recorded Confirmed Type Lisinopril 5 mg PO DAILY 02/23/18 03/03/18 History Carvedilol [Coreg] 3.125 mg PO BID 02/24/18 03/03/18 History Ciprofloxacin [Cipro] 500 mg PO ASDIR 03/03/18 03/03/18 History - History PMHx: SC in 2002 with stent placement, HLD, ureteral stenosis PSHx: nephrostomy tube placed FHx:Noncontributory Social: Pt. drinks socially, former marijuana user, current smoker 40 pack year - Review of Systems General: denies: fever/chills, weight/appetite/sleep changes Eyes: denies: eye pain, vision changes ENT: denies: nasal congestion, rhinorrhea Respiratory: reports: shortness of breath. denies: cough Cardiovascular: reports: chest pain, edema. denies: palpitation Gastrointestinal: denies: nausea, vomiting, diarrhea, constipation Genitourinary: denies: incontinence, dysuria Skin: denies: rashes, lesions Musculoskeletal: denies: pain, tenderness Neurological: denies: numbness, syncope Psychological: denies: anxiety, depression - Vital signs BP: 185/124 HR: 75 RR: 24 Tmax: 98 Pox: 98% on ra Wt: 65.77 - Physical Exam Constitutional: NAD, awake, alert and oriented, well developed HEENT: normocephalic and atraumatic, EOMI, MMM Neck: FROM, no JVD Chest: no-tender to palpation Heart: RRR, normal S1/S2 Lungs: CTAB, no respiratory distress, good air movement Abdomen: soft, non-tender, bowel sounds present, no masses/distention Musculoskeletal: normal structure, normal tone Neurological: no focal deficit, CN II-XII intact Skin: no rash/lesions, good turgor Heme/Lymphatic: no unusual bruising or bleeding Psychiatric: normal mood and affect, good judgment and insight FMR H&P: Results - Labs Result Diagrams: 03/03/18 03:28 03/03/18 03:28 Lab results: WBC 10.1 thou/uL (4.8-10.8) 03/03/18 00:02 Hgb 17.1 g/dL (14.0-18.0) 03/03/18 00:02 Hct 50.9 % (42.0-52.0) 03/03/18 00:02 MCV 98.9 fL (78.0-98.0) H 03/03/18 00:02 Plt Count 194 thou/uL (130-400) 03/03/18 00:02 Neutrophils % 43.4 % (42.0-75.0) 03/03/18 00:02 Sodium 138 mmol/L (136-145) 03/03/18 00:02 Potassium 4.4 mmol/L (3.5-5.1) 03/03/18 00:02 Chloride 106 mmol/L (98-107) 03/03/18 00:02 Carbon Dioxide 24 mmol/L (22-29) 03/03/18 00:02 BUN 18 mg/dL (8.4-25.7) 03/03/18 00:02 Creatinine 1.10 mg/dL (0.6-1.3) 03/03/18 00:02 Glucose 115 mg/dL (70-105) H 03/03/18 00:02 Calcium 9.1 mg/dL (7.8-10.44) 03/03/18 00:02 Total Bilirubin 0.7 mg/dL (0.2-1.2) 03/03/18 00:02 AST 85 U/L (5-34) H 03/03/18 00:02 ALT 91 U/L (8-55) H 03/03/18 00:02 Alkaline Phosphatase 186 U/L (40-150) H 03/03/18 00:02 B-Natriuretic Peptide 35.0 pg/mL (0-100) 03/03/18 00:02 Serum Total Protein 7.7 g/dL (6.0-8.3) 03/03/18 00:02 Albumin 3.4 g/dL (3.5-5.0) L 03/03/18 00:02 - EKG Interpretation EKG: NSR, no st elevation or depression FMR H&P: A/P - Problem List (1) Hydronephrosis Current Visit: No Status: Acute Code(s): N13.30 - UNSPECIFIED HYDRONEPHROSIS (2) CAD (coronary artery disease) Current Visit: No Status: Chronic Code(s): I25.10 - ATHSCL HEART DISEASE OF [place] CORONARY ARTERY W/O ANG PCTRS Qualifiers: Coronary Disease-Associated Artery/Lesion type: [place] artery (3) HTN (hypertension) Current Visit: No Status: Chronic Code(s): I10 - ESSENTIAL (PRIMARY) HYPERTENSION Qualifiers: Hypertension type: essential hypertension Qualified Code(s): I10 - Essential (primary) hypertension (4) Hepatitis C antibody positive in blood Current Visit: No Status: Acute Code(s): R76.8 - OTHER SPECIFIED ABNORMAL IMMUNOLOGICAL FINDINGS IN SERUM - Plan This is a 57 yo male with a PMH of CAD s/p 2 stents in 2002, H NSTEMI -Admit to tele obs. Pt. had three trops which trended up to .285. Pt. has received aspirin prior to arrival. We will consult cardiology as pt. will likely need a heart cath. Pt. has nitro and morphine for pain control HTN -Continue lisinopril, hold coreg for now Hepatitis C -Aware, pt. states he is waiting on insurance approval for medication. Code: Full Prophylaxis: SCDs Family: none Disposition: home in 2-3 days FMR H&P: Upper Level - Pertinent history 57 yo male here for chest pain. Hx of CAD s/p 2 stents placed 2002, HTN, HepC, tobacco abuse, left uretopelvic junction obstruction with urostomy tube. Reports CP started about a week ago with "episodes" of mid-sternal pain lasting a couple minutes. Not associated with radiation, SOB, activity. Self resolving. Pain not sharp, but more pressure. Describes it as similar to episode when he needed stents. Last night he says he had similar pain that woke him from sleeping, lasting 30minutes, somewhat relieved by nitro. Resolved en route to hospital. Was seen at [facility] early January to establish care and get referral to cardiology for clearance to have left UPJ stent placed by Dr. Thomas. Appt with Dr. Jeff in late February. Prior to January 2018, patient reports he did not see providers unless he came to ED at [facility]. Smokes 1ppd. - Pertinent findings 166/110 HR: 70 Temp: 98.0 97% on RA RR: 22 trop: <0.010 GEN: NAD, AOx3 CARD: RRR, no m/g/r PULM: CTAB ABD: BSx4, urostomy tube in left posterior flank EXT: no cyanosis or edema, pulses symmetric - Plan Date/Time: 03/03/18 0144 Mitch Jacobson DO, have evaluated this patient and agree with findings/plan as outlined by academic intern resident. Pertinent changes/additions are listed here. chest pain, typical -improved with nitro, difficult to determine if it resolved with nitro or self- resolved -since he has a history of CAD, will check a stress test -Heart score: 4 -trend cardiac enzymes -NPO, last meal was last night around 7pm HTN -hold bb -continue lisinopril tobacco -counselor at law to cut back HepC with transaminitis -stable with previous hospitalizations -CT back at July 2017 hospitalization shows fatty liver Hx of CAD left ureteral obstruction
[2018-03-03] MEDS ORDERED: Ondansetron PF 4 MG/2 ML Vial IVP PRN (02:57)
[2018-03-03] MEDS ORDERED: Acetaminophen 325 MG TAB PO PRN (02:57)
[2018-03-03] MEDS ORDERED: Ondansetron ODT 4 MG TAB PO PRN (02:57)
[2018-03-03 03:23] VITALS: BMI 21.9
[2018-03-03 04:50] LABS: Band 1 % (5-11); Eosinophils 3 % (0-10); Hemoglobin 16.2 g/dL (14.0-18.0); Lymphocytes 34 % (21-51); MDiff Complete? YES; Mean Corpuscular HGB CONC 31.8 g/dL (32.0-36.0); Mean Corpuscular Hemoglobin 31.9 pg (27.0-31.0); Mean Platelet Volume 7.8 fL (7.4-10.4); Monocytes 8 % (0-10); Neutrophil 53 % (42-75); Platelet Count 173 thou/uL (130-400); RBC Distribution Width 11.6 % (11.5-14.5); Reactive Lymphocytes 1 % (0-10); Red Blood Cell (RBC) Count 5.08 mill/uL (4.70-6.10); White Blood Cell (WBC) Count 9.5 thou/uL (4.8-10.8)
[2018-03-03 04:59] LABS: Anion Gap 14 mmol/L (10-20); BUN (Urea Nitrogen) 20 mg/dL (8.4-25.7); Calc. Creatinine Clearance 80 mL/min (70-130); Calcium 9.4 mg/dL (7.8-10.44); Carbon Dioxide 23 mmol/L (22-29); Chloride 108 mmol/L (98-107); Estimated GFR-MDRD 83; Glucose 107 mg/dL (70-105); Potassium 4.6 mmol/L (3.5-5.1); Sodium 140 mmol/L (136-145)
[2018-03-03 05:00] LABS: Troponin I 0.167 ng/mL (< 0.028)
[2018-03-03 07:08] LABS: Phosphorus 3.2 mg/dL (2.3-4.7)
[2018-03-03 07:30] LABS: Troponin I 0.285 ng/mL (< 0.028)
--- NOTE | 2018-03-03 07:45 | RAD ---
PORTABLE AP CHEST XRAY: DATE: 03/03/2018. HISTORY: Chest pain which started tonight. COMPARISON: 01/05/2014. FINDINGS: Cardiac silhouette and pulmonary vasculature are within normal limits. Lungs remain clear. There putnam s been no interval change from the prior exam. IMPRESSION: No acute cardiopulmonary process. POS: [facility]
[2018-03-03] MEDS: Lisinopril 5 MG TAB PO SCH (09:42)
--- NOTE | 2018-03-03 09:46 | HP ---
CHIEF COMPLAINT: Chest pain. HISTORY OF PRESENT ILLNESS: Mr. Gutierrez is a pleasant 57-year-old white male, smoking patient with a previous history of coronary artery disease status post stent placement in 2002. For the last week, Mr. Gutierrez has been having some retrosternal chest discomfort off and on, not necessarily exercise in duced. However, last night he was awoken from sleep by a moderately severe prolonged episode of retr osternal chest pain that caused diaphoresis. He called a friend who brought him to our emergency [facility] for further evaluation. While in the ER, he had further pain relieved with nitroglycerin. He has already been given aspirin. Currently, he is pain free, but his troponins have now trended into the NSTEMI range. PHYSICAL EXAMINATION: VITAL SIGNS: His blood pressure is currently 107/63, his pulse rate 55 and regular, respirations 18. His room air oxygen saturation is 95%. GENERAL: He is a pleasant man in no distress. EAR, NOSE AND THROAT: No erythema or exudate. NECK: Supple. No JVD. CARDIAC: The PMI is in the fifth intercostal space at the midclavicular line. There is an S4 gallop . He may have a soft systolic murmur heard apically. LUNGS: Breath sounds are diminished, but clear without rales, rhonchi, or wheezes. He is in no resp iratory distress. ABDOMEN: Scaphoid, flat, soft. No guarding, rebound or rigidity. EXTREMITIES: No edema. NEUROLOGIC: No focal deficits. LABORATORY DATA: His BMP shows a sodium 138, potassium 4.4, chloride 106, bicarbonate 24, BUN 18, cr eatinine 1.1, glucose 115. He has elevated AST and ALT as well as an elevation of the alkaline phosp hatase. His troponin was initially 0.01. It has now trended to 0.285. He also has elevated TSH 6.0 2. EKG shows only nonspecific ST changes, no acute ST segment changes. ASSESSMENT: Non-ST elevation myocardial infarction. PLAN: We will consult Cardiology as he likely will need heart catheterization.
[2018-03-03 10:08] LABS: Cardiac Risk 5.7 (Less than 4.5)
[2018-03-03 10:14] LABS: CKMB 2.4 ng/mL (0-6.6); Troponin I 0.234 ng/mL (< 0.028)
[2018-03-03] MEDS ORDERED: Iopamidol 370 76% 100 ML VIAL ONE (10:27)
[2018-03-03 10:50] LABS: Acetaminophen Less than 6.0 mcg/mL (10.0-30.0); Alcohol Less than 10 mg/dL (Less than 10); Salicylate Less than 8.0 mg/dL (15.0-30.0)
[2018-03-03 10:53] LABS: PTT 30.9 SEC (22.9-36.1); Prothrombin Time 13.1 SEC (12.0-14.7)
--- NOTE | 2018-03-03 11:11 | CON-2 ---
DATE OF CONSULTATION: 03/03/2018 CONSULTING PHYSICIAN: Dr. Ti Jeff REASON FOR CONSULTATION: Chest pain, [id number] elevation myocardial infarction. HISTORY OF PRESENT ILLNESS: Mr. Gutierrez is a 57-year-old male that presented to the emergency department after being awoken with a pressure-like pain in the center of his chest sometime during the middle of the night. The patient reports that he has been having similar pains at rest for the past week. These episodes last for approximately one minute at a time and have been happening once or twice a day. The patient states he is not necessarily doing anything on the onset of these episodes. He does endorse being under a lot of stress recently, particularly related to his kidney issues and insurance issues. The patient states that he is significantly short of breath during these episodes and has some radiation to his bilateral shoulders and neck. This most recent anginal spell did awake him from sleep. He went and took 2 baby aspirins and waited for the pain to resolve. However, the pain became more intense and so the patient decided to call a friend who brought him into the emergency department. Upon arrival to the emergency department, he was given nitroglycerin which the pain did initially decrease. However, shortly thereafter, the pain became severe and lasted for a few minutes before resolving altogether. The patient states that he has not experienced any pain since being brought up to his room around 3:00 a.m. this morning. He is currently chest pain free, and denies shortness of breath, nausea, vomiting, diaphoresis. The patient states he has not had any significant shortness of breath on exertion recently. He denies any lower leg swelling, orthopnea, paroxysmal nocturnal dyspnea. Patient also denies any palpitations. The patient does have a history significant for coronary artery disease for which he had 2 stents placed in [address] [place] [address] [facility]. He has not followed with a crimp setter since that time. Our records show that he has not had any cardiac interventions at this hospital. The patient states that he was supposed to follow up with Dr. Jeff, but due to insurance reasons he has been unable to do so. The patient states that he is compliant with his medications which include lisinopril and carvedilol. PAST MEDICAL HISTORY: 1. Coronary artery disease status post stents x2. 2. Hypertension. 3. Hyperlipidemia. 4. Ureteral stenosis status post nephrostomy tube on the left. 5. Hepatitis C, not currently being treated. OUTPATIENT MEDICATIONS: 1. Carvedilol 3.125 mg b.i.d. 2. Lisinopril 5 mg daily. 3. Ciprofloxacin 500 mg q.12h.; the patient has an additional 2 days of this medication for which he is taking for kidney infection. ALLERGIES: No known drug allergies. FAMILY HISTORY: The patient's father at age 68 from possible coronary artery disease. The patient's mother was diagnosed with coronary artery disease in her 60s and then from lung cancer several years later. SOCIAL HISTORY: The patient does currently smoke. He states that he has decreased the amount, he smokes a half a pack per day. He has been smoking for 40+ years. The patient states he drinks 1-2 beers a week. The patient does endorse marijuana and cocaine use. He states that the last time he used cocaine was about 1 month ago. REVIEW OF SYSTEMS: A 12-point review of systems was performed and all were negative, unless stated in the history of present illness. PHYSICAL EXAMINATION: VITAL SIGNS: Temperature 97.9 degrees Fahrenheit, pulse 55, blood pressure 107/ 63, respiratory rate 18, O2 saturation of 95% on room air. GENERAL: Awake, alert, and oriented x3, in no distress. HEENT: Normocephalic, atraumatic. NECK: Supple. LUNGS: Clear to auscultation bilaterally. CARDIOVASCULAR: Bradycardia. S4 gallop. ABDOMEN: Soft, positive bowel sounds. The patient has a nephrostomy tube on the left. EXTREMITIES: No edema. There is a urinary catheter bag attached to the left lower extremity. SKIN: Warm and dry. LABORATORY DATA: Reviewed. CBC reveals a white blood cell count 9.5, hemoglobin 16.2, hematocrit 50.9 and platelet count of 173. CMP reveals sodium 140, potassium 4.6, chloride 108, bicarb 23, BUN 20, creatinine 0.94, GFR 83, glucose 107, calcium 9.4. Phosphorus 3.2, mag 2.0. Total bilirubin 0.7, AST 85 , ALT 91, alkaline phosphatase 186, albumin 3.4, total protein 7.7. BNP was noted to be 35. Cholesterol panel reveals triglycerides 140, total cholesterol 166, LDL cholesterol 109, HDL cholesterol 29. TSH was 6.1739 and free T4 was normal at 1.02. Cardiac enzymes were drawn. Initial CK-MB was 2.4 with a troponin less than 0.010. However, troponins were trended and did up trend to 0.167, 0.285. A fourth troponin down trended to 0.234. EKG was reviewed and showed normal sinus rhythm with nonspecific ST-T changes. Chest x-ray showed no acute cardiopulmonary process. ASSESSMENT AND PLAN: 1. Non-ST elevation myocardial infarction: Possibly related to cocaine use. Troponins have trended down. UDS pending. If negative for cocaine, will proceed with cardiac catheterization to evaluate for reversible ischemia. Echocardiogram pending. 2. Hypertension: Continue WM-I and BB. 3. Hyperlipidemia: Add high intensity statin to medication regimen. 4. Coronary artery disease status post stents x2: Continue BB. Add ASA and high intensity statin to medication regimen. Thank you for the consultation. We will continue to follow this patient. MARILU
[2018-03-03 12:53] LABS: Amphetamine Not Detected (NotDetected); Barbiturates Screen Not Detected (NotDetected); Benzodiazepine Screen Not Detected (NotDetected); Cocaine Metabolite Screen Not Detected (NotDetected); Medtox Control Line Valid? VALID (VALID); Medtox Reader # READER 4; Methadone Not Detected (NotDetected); Methamphetamine Not Detected (NotDetected); Opiate Screen Not Detected (NotDetected); Oxycodone Screen Not Detected (NotDetected); Phencyclidine (PCP) Not Detected (NotDetected); THC/Cannabinoid Screen Not Detected (NotDetected); Tricyclic Screen Not Detected (NotDetected)
[2018-03-03] MEDS ORDERED: Fentanyl 100 MCG/2 ML VIAL ONE (13:16)
[2018-03-03] MEDS ORDERED: Midazolam HCl 2 mg/2 ml Vial ONE (13:16)
[2018-03-03] MEDS ORDERED: Lidocaine 1% (PF) 30 ML VIAL ONE (13:16)
[2018-03-03] MEDS ORDERED: traMADol HCl 50 MG TAB PO PRN (15:35)
[2018-03-03] MEDS ORDERED: Acetaminophen/Codeine 30-300mg Tablet PO PRN (15:35)
[2018-03-03] MEDS ORDERED: Sodium Chloride 0.9% 200 ML IV SCH (15:45)
[2018-03-03] MEDS ORDERED: Sodium Chloride 0.9% 1,000 ML IV SCH (15:45)
--- NOTE | 2018-03-03 15:52 | CON ---
CARDIOLOGY CONSULTATION DATE OF CONSULTATION: 03/03/2018 REASON FOR CONSULTATION: NonSTEMI. HISTORY OF PRESENT ILLNESS: Mr. Gutierrez a pleasant 57-year-old white gentleman who comes to the [facility] for chest pain. He was admitted for rule out and troponins were mildly elevated, so Cardiology h as been consulted for this. He has seen Dr. Maurice in the past. Last time, he was seen by him was i n 2010. He had a normal stress test at that time. He has a patent stent to the LAD as well. He cam e in for chest pain. Cardiology has been consulted for mildly elevated troponins. PAST MEDICAL HISTORY: 1. Coronary artery disease, status post stents to the LAD in the past. 2. Hypertension. 3. Hyperlipidemia. 4. Ureteral stenosis, status post nephrostomy tube on the left. 5. Hepatitis C. OUTPATIENT MEDICATIONS: 1. Carvedilol 3.125 b.i.d. 2. Lisinopril 5 mg daily. 3. Cipro. ALLERGIES: No known drug allergies. FAMILY HISTORY: Coronary artery disease in father, mother in her 60s. SOCIAL HISTORY: Continues to smoke, 40 pack a day history, drinks about 1 or 2 beers a week. Mariju patricia and cocaine use, last time was a month ago. REVIEW OF SYSTEMS: Twelve-point review of systems was done and is negative except noted in history o f present illness. PHYSICAL EXAMINATION: VITAL SIGNS: Temperature 97.9, pulse 55, respiratory rate 18, satting 95% on room air, blood pressur e 107/63. GENERAL: Awake, alert, and oriented x3, in distress. HEENT: Normocephalic, atraumatic. NECK: Supple. LUNGS: Clear. CARDIOVASCULAR: S1, S2. No S3, S4. No murmurs. ABDOMEN: Soft. Positive bowel sounds. EXTREMITIES: No edema. SKIN: Warm and dry. LABORATORY DATA: Reviewed. EKG was reviewed. ST ischemic changes. Chest x-ray reviewed. ASSESSMENT: 1. Non-ST elevation myocardial infarction. 2. Hypertension. 3. Hyperlipidemia. 4. Tobacco abuse. 5. Substance abuse. 6. Noncompliance. PLAN: We will do a left heart catheterization to further risk stratify. Further recommendations pen ding results of coronary angiogram. I have spoken with him about the risks and benefits of the proce dures. Risks including but not limited to stroke, ME, , bleeding, need for blood transfusion, l imb loss, loss, contrast reactions. He understands understanding of this and agrees to tiffany cox.
--- NOTE | 2018-03-03 17:14 | EKG ---
Test Reason : Blood Pressure : / mmHG Vent. Rate : 052 BPM Atrial Rate : 052 BPM P-R Int : 146 ms QRS Dur : 078 ms QT Int : 454 ms P-R-T Axes : 059 056 083 degrees QTc Int : 422 ms Sinus bradycardia Nonspecific ST and T wave abnormality Abnormal ECG When compared with ECG of 02-MAR-2018 23:49, (Unconfirmed) T wave amplitude has decreased in Inferior leads Nonspecific T wave abnormality, worse in Anterior leads Confirmed by DR. Xiang POLANCO (3) on 03/03/2018 5:14:10 PM Referred By: SHANT Confirmed By:DR. Xiang POLANCO
[2018-03-03] MEDS ORDERED: Communication Order-Pharmacy FS ONE (18:01)
[2018-03-03] MEDS: Carvedilol 3.125 MG TAB PO SCH (20:19)
[2018-03-03] MEDS: Ciprofloxacin 500 MG TAB PO SCH (20:19)
[2018-03-03] MEDS ORDERED: Rosuvastatin 20 MG TAB PO SCH (21:00)
--- NOTE | 2018-03-04 01:17 | CON ---
DATE OF CONSULTATION: 03/03/2018 REQUESTING PHYSICIAN: Ti Jeff M.D. PRIMARY CARE PHYSICIAN: [facility]. CHIEF COMPLAINT: Chest pain and pressure. HISTORY OF PRESENT ILLNESS: The patient is a 57-year-old man with a personal and family history of p remature coronary artery disease. He awoke from sleep late last night with chest pain analogous to t he stereotypical elephant sitting on his chest, which was similar to the experience he had in 2003 wh en he underwent LAD stenting. His pain worsened in spite of taking aspirin and he presented to the e mergency room. This episode was associated with shortness of breath and diaphoresis and improved wit h nitroglycerin. PAST MEDICAL HISTORY: Significant for hypertension, hepatitis C. He currently has a left-sided neph rostomy tube in to address left UPJ obstruction. He is on a course of ciprofloxacin for urinary trac t infection associated with it. He has been smoking for over 40 years. He is fairly recently decrea sed to about a half a pack a day. He says that he drinks about 1-2 beers a week. He does occasional ly smoke marijuana and uses cocaine and says that his last cocaine use was about a month ago. HOME MEDICATIONS: His home medications are lisinopril 5 mg a day, Coreg 3.125 mg b.i.d. and he is cu rrently on a course of ciprofloxacin. His Coreg has been held and his lisinopril continued. A baby aspirin today has been added as has Crestor 20 mg at bedtime. ALLERGIES: He denies any medical allergies. FAMILY HISTORY: Significant for both of his parents having coronary artery disease in their late 50s to early 60s. He has a brother who has had open heart surgery. REVIEW OF SYSTEMS: Negative for any transient eye, speech, facial or extremity symptoms consistent w ith TIAs. He reports bilateral hip pain with walking. He denies any shortness of breath other than that associated with his chest pain and seems to minimize coughing. PHYSICAL EXAMINATION: GENERAL: He is a thin man who is balding and has a full jaime. VITAL SIGNS: Heart rate is 64, blood pressure 145/85, temperature 97.6, room air O2 sats are 96%, he ight is 5 feet 8 inches, weight is 144-1/2 pounds. In the emergency room at the time of presentation , his heart rate was 75 and blood pressure 185/124. NECK: He has no carotid bruits, no xanthelasma. RESPIRATORY: He seems to have decreased force of exhalation. When I asked him to blow out hard agai nst my hand, his breath sounds are clear. They are not particularly distant. CARDIOVASCULAR: He has a regular rate and rhythm without murmur or gallop. ABDOMEN: Soft, nontender, without organomegaly, masses, bruits or fluid wave. EXTREMITIES: He has palpable radial pulses bilaterally, but on Bari's testing he does not pink up h is fingertips with just ulnar flow. He has a palpable left femoral pulse and nonpalpable right femor al pulse neither is associated with bruits. Both of his popliteals are palpable with a similar stren gth. He has a strong posterior tibial and dorsalis pedis pulses on the left. He has a palpable but diminished posterior tibial pulse on the right. I was not able to appreciate a dorsalis pedis pulse. He has what appears to represent good quality of saphenous vein that is quite readily visible. He has no clubbing, cyanosis or edema. NEUROLOGIC: Grossly nonfocal. LABORATORY DATA: Shows a white count of 10.1, hemoglobin of 17.1 and hematocrit of 50.9, platelets o f 194,000. PT was 13.1, INR 1.0, PTT 30.9. Electrolytes were normal. Glucose 115, BUN 18, creatini ne 1.0, bilirubin 0.7, alkaline phosphatase 186, AST 85, ALT 91, calcium 9.1, protein 7.7, albumin 3. 4. TSH was 6.1739 with normal range being 0.35-4.94, free T4 was 1.02 with normal range being 0.70-1 .48. His BNP was 35. His initial troponin was undetectable around midnight, but about 3:30 this mor carmelita, it had risen to 0.167 at about 6:45 it was 0.285 which was its peak and at 9:30 this morning, i t has fallen to 0.234. Fasting lipids were triglycerides of 140, cholesterol of 166, LDL of 109, HDL of 29. His chest x-ray showed no aortic valve calcifications. No flattening of the diaphragms, but quite prominent pulmonary markings without any fluffiness in the ciera. His initial EKG, sinus in th e 70s with inverted T-wave in V1 and V2. His follow up EKG this morning showed no interval developme nt of Q-waves, but his T-wave in V1 was upright as well as the T-wave in V2. His STs were downslopin g in the inferior leads and V3 through V6. Cardiac catheterization showed high grade stenosis in the right common iliac on the femoral injection. He had a right dominant system with a proximally occlu ded right coronary with a diffusely irregular right coronary filling from left-sided collaterals with competitive flow in the posterolateral branch. His LAD stent is fairly proximal and fairly long its elf appeared to be patent, coming off of it with a bifurcated diagonal with a very high grade stenosi s and then beyond it was a 70%-80% mid LAD lesion just beyond atrial branch or the groove circumflex, it is an obtuse marginal that bifurcates towards the apex that has about a 99% lesion at its origin. LVEF was about 50% perhaps even 60% with an area of inferoapical hypokinesis. Aortic pressure was 130/73 with a mean of 86. LV pressures were 117/1 and 118/2 with LVEDP of 9 and 8 respectively. IMPRESSION AND RECOMMENDATIONS: Severe three-vessel coronary artery disease, non-ST elevation myocar dial infarction and well-worn 57-year-old man who probably has significant lung disease, who has obvi ous peripheral vascular disease and would appear to be radial dominant bilaterally. We will plan on surgical revascularization utilizing left JAZIEL to his LAD and saphenous vein for the balance.
[2018-03-04] MEDS ORDERED: Acetaminophen 325 MG TAB PO PRN ×2 (01:43→12:38)
[2018-03-04] MEDS ORDERED: Ondansetron ODT 4 MG TAB PO PRN (01:43)
[2018-03-04] MEDS ORDERED: Ondansetron PF 4 MG/2 ML Vial IVP PRN (01:44)
[2018-03-04] MEDS ORDERED: Acetaminophen/Codeine 30-300mg Tablet PO PRN (01:44)
[2018-03-04] MEDS ORDERED: traMADol HCl 50 MG TAB PO PRN (01:44)
[2018-03-04] MEDS: Lisinopril 5 MG TAB PO SCH (05:34)
[2018-03-04] MEDS: Carvedilol 3.125 MG TAB PO SCH (05:34)
--- NOTE | 2018-03-04 05:46 | PDOC.FM ---
- Subjective Subjective: Patient is doing well this morning. He underwent cardiac catheterization yesterday and is planning for CABG today by Dr. Schuster. He reports anxiety over this but is otherwise well. Denies chest pain, shortness of breath , difficulty with urination, and n/v/c/d. No acute events overnight. - Objective MAR Reviewed: Yes Vital Signs & Weight: Vital Signs (12 hours) Temp Pulse Resp BP BP Pulse Ox 03/04/18 05:34 64 124/73 03/04/18 04:00 99.0 F 64 16 124/73 92 L 03/03/18 22:30 93 L 03/03/18 20:00 96 03/03/18 19:13 97.5 F L 65 16 141/81 H 96 Weight Weight 64.455 kg I&O: 03/02/18 03/03/18 03/04/18 06:59 06:59 06:59 Intake Total 0 390 Output Total 400 525 Balance -400 -135 Result Diagrams: 03/03/18 03:28 03/03/18 03:28 Dx/Plan (1) CAD (coronary artery disease) Code(s): I25.10 - ATHSCL HEART DISEASE OF [place] CORONARY ARTERY W/O ANG PCTRS Status: Chronic Qualifiers: Coronary Disease-Associated Artery/Lesion type: [place] artery (2) NSTEMI (non-ST elevated myocardial infarction) Code(s): I21.4 - NON-ST ELEVATION (NSTEMI) MYOCARDIAL INFARCTION Status: Acute (3) Drug abuse Code(s): F19.10 - OTHER PSYCHOACTIVE SUBSTANCE ABUSE, UNCOMPLICATED Status: Acute (4) Hepatitis C antibody positive in blood Code(s): R76.8 - OTHER SPECIFIED ABNORMAL IMMUNOLOGICAL FINDINGS IN SERUM Status: Acute (5) HTN (hypertension) Code(s): I10 - ESSENTIAL (PRIMARY) HYPERTENSION Status: Chronic Qualifiers: Hypertension type: essential hypertension Qualified Code(s): I10 - Essential (primary) hypertension (6) Tobacco abuse Code(s): Z72.0 - TOBACCO USE Status: Chronic - Plan Plan: NSTEMI with Severe 3V CAD: - LAD, OM, and RCA. Plan for CABG today - continue daily ASA, Crestor, and antihypertensive medication - counseled on cessation of tobacco and drug use HTN: - at goal, continue current medications UPJ Obstruction with percutaneous Nephrostomy tube: - Needs outpatient followup - Continue Cipro today, will complete course today. Drug Abuse - CM for NA resources Tobacco Abuse: - as above DVT Ppx: hold for surgery, SCD Code status: Full Dispo: likely 3 more days, pending CABG recovery.
[2018-03-04] MEDS ORDERED: Albumin 5% 500 ML ONE ×2 (06:39→14:16)
[2018-03-04] MEDS ORDERED: Sodium Chloride 0.9% 10 ML ONE (07:08)
[2018-03-04] MEDS ORDERED: CEFAZOLIN 2 GM/50 ML-DEXTROSE 2 GM in Premix Bag 1 BAG IVPB SCH (07:15)
[2018-03-04] MEDS ORDERED: Dexmedetomidine 200 MCG/2 ML VIAL ONE (08:35)
[2018-03-04] MEDS ORDERED: Fentanyl 100 MCG/2 ML VIAL ONE (08:35)
[2018-03-04] MEDS ORDERED: Midazolam HCl 2 mg/2 ml Vial ONE (08:35)
[2018-03-04] MEDS ORDERED: Vecuronium 10 MG VIAL ONE ×2 (08:35→11:40)
[2018-03-04] MEDS ORDERED: Midazolam HCl 5 mg/5 ml Vial ONE (08:35)
[2018-03-04] MEDS ORDERED: Heparin 10,000 UNITS/1 ML VIAL 30,000 UNITS in Sodium Chloride 0.9% 1,000 ML FS SCH (10:15)
--- NOTE | 2018-03-04 10:41 | PRG ---
DATE OF SERVICE: 03/04/2018 This is an addendum to the note of Dr. Erendira Partida. I came by to see Mr. Gutierrez this morning, but he was already down in surgery undergoing CABG. He did have heart catheterization yesterday which showed severe triple vessel disease. He was seen in cons ultation by the CV Service and CABG was recommended. He is currently undergoing CABG in the OR. We will continue to follow him postoperatively to ensure good medical management of his significant er[place]on nary artery disease.
[2018-03-04] MEDS ORDERED: Thrombin 5000 UNITS/5 ML VIAL ONE (11:40)
[2018-03-04] MEDS ORDERED: Glycopyrrolate 0.2 MG/ML 5 ML SYRINGE ONE (11:40)
[2018-03-04] MEDS ORDERED: Protamine Sulfate 250 MG/25 ML VIAL ONE (11:40)
[2018-03-04] MEDS ORDERED: Aminocaproic Acid 5 GM/20 ML VIAL ONE (11:40)
[2018-03-04] MEDS ORDERED: Magnesium 5 GM/10 ML VIAL ONE (11:40)
[2018-03-04] MEDS ORDERED: Sodium Bicarb 50 MEQ/50 ML VIAL ONE (11:40)
[2018-03-04] MEDS ORDERED: PHENYLEPHRINE-NS 100 MCG/ML 10 ML SYRINGE ONE (11:40)
[2018-03-04] MEDS ORDERED: Lidocaine 2% PF 100 mg/5 ml Syringe ONE (11:40)
[2018-03-04] MEDS ORDERED: Nitroglycerin 50 MG/250 ML BOT ONE (11:40)
[2018-03-04] MEDS ORDERED: Cardioplegic Soln 1,000 ML BAG ONE (11:40)
[2018-03-04] MEDS ORDERED: Heparin 30,000 units/30 ml VIAL ONE (11:40)
[2018-03-04] MEDS ORDERED: Potassium Chloride 60 MEQ/30 ML VIAL ONE (11:40)
[2018-03-04] MEDS ORDERED: Mannitol 12.5 GM/50 ML ONE (11:40)
[2018-03-04] MEDS ORDERED: ePHEDrine/0.9% NaCl/PF SYRINGE 50 mg/10 ml ONE (11:40)
[2018-03-04] MEDS ORDERED: Calcium Chloride 1 GM/10 ML Abboject SYRINGE ONE (11:40)
[2018-03-04] MEDS ORDERED: Papaverine 60 MG/2 ML VIAL ONE (11:40)
[2018-03-04] MEDS ORDERED: Morphine 2 MG/ML SYRINGE SLOW IVP PRN (12:38)
[2018-03-04] MEDS ORDERED: Bisacodyl 10 MG SUPP PR PRN (12:38)
[2018-03-04] MEDS ORDERED: Promethazine HCl 25 MG/ML VIAL IM PRN (12:38)
[2018-03-04] MEDS ORDERED: Post-Op Insulin Drip Protocol IVPB ONE (12:38)
[2018-03-04] MEDS ORDERED: Bisacodyl 5 MG TAB PO PRN (12:38)
[2018-03-04] MEDS ORDERED: Hetastarch 6% 500 ML 500 ML IVPB PRN (12:38)
[2018-03-04] MEDS ORDERED: Potassium Chloride 20 MEQ/100 ML PREMIX BAG IVPB PRN (12:38)
[2018-03-04] MEDS ORDERED: Mag-Al 1200 mg/1200 mg/30 ML UDCUP PO PRN (12:38)
[2018-03-04] MEDS ORDERED: niCARdipine HCl 25 MG in Sodium Chloride 0.9% 250 ML 240 ML IVPB PRN (12:38)
[2018-03-04] MEDS ORDERED: DOPamine 400 MG/D5W 250 ML 250 ML IVPB PRN (12:38)
[2018-03-04] MEDS ORDERED: hydrALAZINE 20 MG/ML VIAL SLOW IVP PRN (12:38)
[2018-03-04] MEDS ORDERED: Guaifenesin DM 100-10/5 ML UDCUP PO PRN (12:38)
[2018-03-04] MEDS ORDERED: Nitroglycerin 50 MG/250 ML BOT 250 ML IVPB PRN (12:38)
[2018-03-04] MEDS ORDERED: Dextrose 5% in Water 1,000 ML IV PRN (12:47)
[2018-03-04] MEDS ORDERED: Dextrose 50% Abboject 50 ML SYRINGE SLOW IVP PRN (12:47)
[2018-03-04] MEDS: Ciprofloxacin 500 MG TAB PO SCH (15:11)
[2018-03-04 15:56] LABS: Base Excess (BEa) -2.8 mEq/L (-2.0 to +3.0); CO2 Tension 44.2 mmHg (35.0-45.0); Calcium, Ionized 1.18 mmol/L (1.12-1.30); Carboxyhemoglobin (COHb) 0.9 gm% (0.0-3.0); Hemoglobin (Hb) 11.3 g/dL (14.0-18.0); O2 Tension (PaO2) 108.9 mmHg (80.0-100.0); Potassium - ABG Lab 3.89 mmol/L (3.70-5.30); pH, Arterial 7.33 (7.35-7.45)
[2018-03-04 15:57] LABS: Puncture Site ALINE
--- NOTE | 2018-03-04 16:11 | RAD ---
CHEST ONE VIEW 03/04/18 HISTORY: Post open heart surgery. COMPARISON: Comparison radiograph of 03/03/18. FINDINGS: Multiple midline sternotomy wires. Subclavian venous catheter is in place with tip in good position. Left thoracostomy tube is in good position. Mediastinal drains are in good position. IMPRESSION: Expected postoperative findings. POS: HELADIO
[2018-03-04 16:16] LABS: #Eosinphils 0.1 thou/uL (0.0-0.7); #Lymphocytes 1.4 thou/uL (1.20-3.40); #Monocytes 1.2 thou/uL (0.11-0.59); #Neutrophils 10.3 thou/uL (1.40-6.50); %Basophils 0.2 % (0.0-1.0); %Eosinophils 0.6 % (0.0-10.0); %Lymphocytes 10.4 % (21.0-51.0); %Neutrophils 79.7 % (42.0-75.0); Hemoglobin 11.1 g/dL (14.0-18.0); Mean Corpuscular HGB CONC 33.8 g/dL (32.0-36.0); Mean Corpuscular Hemoglobin 33.7 pg (27.0-31.0); Mean Corpuscular Volume 99.7 fL (78.0-98.0); Mean Platelet Volume 7.3 fL (7.4-10.4); Platelet Count 91 thou/uL (130-400); RBC Distribution Width 11.3 % (11.5-14.5); Red Blood Cell (RBC) Count 3.29 mill/uL (4.70-6.10); White Blood Cell (WBC) Count 12.9 thou/uL (4.8-10.8)
[2018-03-04 16:17] LABS: INR-International Normal Ratio 1.3; PTT 36.2 SEC (22.9-36.1); Prothrombin Time 16.3 SEC (12.0-14.7)
--- NOTE | 2018-03-04 16:25 | PDOC.CTH ---
Cardiology Progress Note - Objective Vital Signs Temp Pulse Resp BP BP Pulse Ox 03/04/18 16:00 96 03/04/18 08:00 97.9 F 67 16 128/80 95 03/04/18 05:34 64 124/73 Weight 142 lb 1.6 oz 03/03/18 03/04/18 03/05/18 06:59 06:59 06:59 Intake Total 0 390 Output Total 400 525 Balance -400 -135 - Physical Examination General/Neuro: alert & oriented x3, NAD Neck: no JVD present Lungs: unlabored respirations Heart: RRR Abdomen: NT/ND Extremities: + edema B (1+) - Telemetry Telemetry Rhythm: NSR - Labs Result Diagrams: 03/07/18 05:18 03/07/18 05:18 Troponin/CKMB CK-MB (CK-2) 2.4 ng/mL (0-6.6) 03/03/18 09:31 Troponin I 0.234 ng/mL (< 0.028) H 03/03/18 09:31 - Assessment/Plan 1. NSTEMI 2. Multivessel CAD. 3. Substance 4. S/P CABG x 4 PLAN: - Continue post op care. - ASA/STATIN/BB/ACEI before discharge.
[2018-03-04 16:28] LABS: Anion Gap 4 mmol/L (10-20); BUN (Urea Nitrogen) 13 mg/dL (8.4-25.7); Calc. Creatinine Clearance 101 mL/min (70-130); Carbon Dioxide 24 mmol/L (22-29); Chloride 118 mmol/L (98-107); Estimated GFR-MDRD Greater than 90; Glucose 101 mg/dL (70-105); Sodium 142 mmol/L (136-145)
[2018-03-04] MEDS: Sodium Chloride 0.9% 1,000 ML IV SCH (16:36)
[2018-03-04] MEDS: Fentanyl 100 MCG/2 ML VIAL SLOW IVP PRN ×3 (17:12→20:15)
[2018-03-04] MEDS: Ondansetron PF 4 MG/2 ML Vial IVP PRN ×2 (17:34→23:30)
[2018-03-04] MEDS ORDERED: Acetaminophen 1,000 MG in Premix Bag 1 BAG IVPB SCH (17:45)
[2018-03-04] MEDS: HYDROcodone/Acetaminophen 5/325 mg Tablet PO PRN (19:52)
[2018-03-04] MEDS: Rosuvastatin 20 MG TAB PO SCH (20:04)
[2018-03-04] MEDS: Famotidine/PF 20 mg/2ml Vial SLOW IVP SCH (20:04)
--- NOTE | 2018-03-04 20:18 | OP ---
DATE OF PROCEDURE: 03/04/2018 PROCEDURES PERFORMED: Coronary artery bypass grafting x4 with left internal mammary artery to the di stal LAD and reverse greater saphenous vein grafts from the aorta to the second diagonal from the aor ta to the obtuse marginal from the aorta to the PDA. PREOPERATIVE DIAGNOSIS: Coronary artery disease, status post non-ST elevation myocardial infarction. POSTOPERATIVE DIAGNOSIS: Coronary artery disease, status post ST elevation myocardial infarction. SURGEON: Satish Schuster M.D. ANESTHESIA: General endotracheal anesthesia. INDICATIONS: The patient is a 57-year-old smoker with significant lung disease and known coronary di sease who presented with a stuttering pattern of chest pain, culminating with an episode that awoke h im from sleep. He ruled in for non-ST elevation myocardial infarction and cardiac catheterization de monstrated severe 3-vessel coronary disease. The patient had an adequate Bari's testing on both upp er extremities and obvious lung disease and he is an active smoker. He is now taken to the operating room for surgical revascularization. FINDINGS: Pump time 125 minutes, crossclamp time 64 minutes. A good quality JAZIEL and saphenous vein. The lungs were touching with right lung extending beyond the midline. The LAD had diffuse disease palpable in it, though not visible where grafted distally. It was about a 1.5-2 mm vessel, although it was not possible to pass a probe larger than 1 mm distally from that point. The grafted branch of the second diagonal was about 1.5 mm good quality vessel. The second obtuse marginal was about a 2. 5 mm. There was heavy plaquing proximally, but it was fairly good quality at the level that it dove intramyocardial. The PDA was about a 1.5-2 mm good quality vessel. NARRATIVE REPORT: After informed consent was obtained, the patient was taken to the operating room a nd placed in the supine position on the operating table. After induction of general anesthesia, the patient's right upper chest was prepped and draped in sterile fashion. A triple-lumen central line k it was used to place a right subclavian central line by the Seldinger technique. All three ports eas jelly aspirated and flushed. The line was secured. Ultrasonographic mapping of the greater saphenous vein in the right lower extremity was then undertaken. Below the knee, it was extremely superficial. Otherwise, mapping was unremarkable. The patient was prepped and draped in sterile fashion. Vein was exposed just above the knee on the right lower extremity and then by skin bridge technique was mo bilized down to the mid-calf. It was then mobilized and harvested endoscopically up to the groin lev el. He was prepared for use as a graft and the harvest sites were closed in layers of subcutaneous a nd subcuticular Vicryl. Median sternotomy was performed. A brief attempt was made at exposing the l eft JAZIEL through an extrapleural exposure, but extremely thin pleura were almost immediately violated and it quickly became evident that approach would have to be abandoned. The left JAZIEL was then harves jaylan as a skeletonized in situ graft from the level of the xiphoid to the level of the subclavian vein . The patient was heparinized and the mammary was ligated and divided distally. There was good flow through the mammary which was instilled intraluminally with papaverine solution. The mammary bed wa s inspected for hemostasis. The JAZIEL retractor was placed with an Ankeney. The pericardium was opene d and marsupialized. The aorta was palpated and was soft. A double concentric pursestring of 2-0 Et hibond was placed in the ascending aorta just beyond the pericardial reflection. A single pursestrin g was placed in the right atrial appendage. Aortic and venous cannula were inserted and secured by t he pursestrings. The plane between the aorta and the pulmonary artery was developed. Cardiopulmonar y bypass was instituted and the patient was systemically cooled. The heart was examined and the vess els to be bypassed were identified. A longitudinal slit was made in the pericardium anterior to the left phrenic nerve. There is the mammary pedicle could be passed and aortic cross clamp was applied and cardioplegia was administered through the aortic root needle. Attention was first turned to the obtuse marginal. It was open fairly distally where it dove intramyocardial to get beyond the obvious plaquing in the more proximal and mid portions of it. Saphenous vein was anastomosed there end-to-s roberta with running Prolene suture and the anastomosis tested by flushing cold cardioplegic down the gra ft. The PDA was then opened and grafted in a similar fashion to control backbleeding from the arteri otomy. The anastomosis was constructed over 1.75 mm shunt. The more medial branch of the second nancy gonal being the larger of the two branches was then open. Saphenous vein was anastomosed to it. The LAD was then opened distally. An attempt was used to control backbleeding from the LAD and with the shunt. The shunt easily passed proximally, but could only pass about a millimeter to distally. A 1 .5 mm probe could not pass beyond that point, but a 1 mm probe could. The shunt was placed in the he el of the arteriotomy to control backbleeding from that point and the mammary was anastomosed there w ith running 7-0 Prolene suture and then tacked the epicardium. Antegrade and retrograde flow in the LAD from the point of anastomosis was confirmed with Doppler prior to removal of the crossclamp. The crossclamp was placed with the partial occluding clamp an aortotomy was made in the ascending aorta with a scalpel and punch. PDA graft was brought along the right side of the heart and anastomosed to the more proximal aortotomy. The diagonal and OM grafts were brought along the left side of the hea rt and anastomosed to the middle and distal aortotomies respectively. The vein grafts were occluded and the partial occlusion clamp removed. The vein grafts were deaired and the bulldogs were removed from them. The anastomoses were inspected for hemostasis. The proximal anastomoses were marked with small Hemoclips. Left pleural drain and posterior pericardial drain were brought out through separa te incisions and secured with suture. Right atrial and right ventricular temporary epicardial pacing wires were placed. The patient was then easily from cardiopulmonary bypass. The aortic a nd venous cannulae were removed and their pursestring secured. Protamine was administered. When hem ostasis was adequate, an anterior mediastinal drain was placed and the pericardium was easily closed over with running Vicryl. Vancomycin paste and platelet-rich GPS applied to the cut surfaces of the sternum. The hilar reflections of the left pleura were mobilized to allow for loose reapproximation of the pleura lateral to the course of the mammary to exclude the mammary from the pleural space. Th e sternum was reapproximated with #7 stainless steel wires. The fascia closed over the wires with Vi cryl. Wound was then irrigated and platelet poor GPS was applied. The fascia closed over the wires with heavy Vicryl and the subcutaneous tissue was reapproximated with 2-0 Vicryl. The skin was close d with Vicryl subcuticular suture. The wounds were dressed. The patient was extubated in the operat ing room and taken to intensive care unit in stable condition.
[2018-03-04] MEDS: Insulin Regular 300 UNITS/3 ML VIAL SC PRN (20:24)
--- NOTE | 2018-03-04 20:24 | CON ---
DATE OF SERVICE: 03/04/2018 SERVICE: Pulmonary Medicine. REASON FOR CONSULTATION: ICU patient. HISTORY OF PRESENT ILLNESS: The patient is a 57-year-old white male with past medical history significant for coronary artery disease. He presented to the hospital with dull chest discomfort. His troponin was elevated. Ultimately, cardiac catheterization demonstrated significant stenoses, requiring coronary artery bypass graft. He is postop day 0 from that procedure and just landed in the ICU. He was extubated in the operating room. He is not able to provide me any additional elements of the history because of the encephalopathy created by some pain and sedating medications. Otherwise, there has been no interval change to his condition that I am aware of. I am told that the procedure was essentially uncomplicated. PAST MEDICAL HISTORY: 1. Coronary artery disease. 2. Dyslipidemia. 3. Ureteral stenosis, status post nephrostomy drain. PAST SURGICAL HISTORY: 1. Nephrostomy tube placement. 2. Coronary artery bypass graft. FAMILY HISTORY: Noncontributory. SOCIAL HISTORY: Negative for alcohol. He smokes a pack on a daily basis and has greater than [id number] history of smoking. He has a history of marijuana use, but no other illicit drugs. ALLERGIES: No known drug allergies. MEDICATIONS: List of his inpatient medications was reviewed. No specific updates were made at this time. REVIEW OF SYSTEMS: This cannot be obtained because of the patient's post operative encephalopathy. PHYSICAL EXAMINATION: VITAL SIGNS: Currently hypothermic. Pulse 67, blood pressure 128/80, respirations 16, saturation 95% on a simple facemask with 6 liters per minute flow. HEENT: Normocephalic, atraumatic. Sclerae are white, conjunctivae pink. Oral mucosa is moist without lesions. GENERAL: The patient is somnolent. He is in no apparent distress. LUNGS: Decent air entry bilaterally. Rhonchi are present, particularly with exhalation. There is no wheezing or crackles appreciated. There is no prolonged expiratory phase. HEART: Normal rate, regular. ABDOMEN: Soft, nontender, nondistended. Bowel sounds are positive. MUSCULOSKELETAL: No cyanosis or clubbing. There is no pitting in the bilateral lower extremities. NEUROLOGIC: Grossly nonfocal. LABORATORY DATA: WBC 12.9 in the postop period, hemoglobin 11.1, platelets 91, 000. INR 1.3. A pH 7.33, pCO2 of 44, pO2 of 108 on a simple facemask. Basic metabolic profile is essentially unremarkable otherwise. Chloride 118, sodium 142. Blood sugar ranges from 101-188. Urine drug screen, alcohol, acetaminophen, and salicylate are all unremarkable. IMAGING: Chest x-ray demonstrates large thoracostomy tube on the left. Mediastinal drain is also present x2, right subclavian central venous catheter terminates in the superior vena cava. Sternotomy wires are now noted. ASSESSMENT: 1. Acute hypoxic respiratory failure. 2. Coronary artery disease, status post coronary artery bypass graft, postop day 0. 3. Non-ST elevation myocardial infarction. 4. Tobacco abuse. DISCUSSION AND PLAN: The patient is doing fine from in the postop period. As he recovers, we will start removing lines and tubes. He has just arrived in the ICU. We will start our mobilization efforts tomorrow morning. Pulmonary Critical Care will continue to follow in this location. 70 minutes have been devoted to this patient in various activities. I personally reviewed all imaging studies and laboratory data noted within this document. For fifty percent of this time, I was interacting with the patient at the bedside or coordinating care with the care team. For the remainder of the time I was immediately available to the patient in the hospital unit. MARILU
[2018-03-04 20:36] LABS: Hemoglobin 12.2 g/dL (14.0-18.0)
[2018-03-04 20:51] LABS: Potassium 4.9 mmol/L (3.5-5.1)
[2018-03-05] MEDS: HYDROcodone/Acetaminophen 5/325 mg Tablet PO PRN ×3 (02:05→12:51)
[2018-03-05] MEDS: Fentanyl 100 MCG/2 ML VIAL SLOW IVP PRN (02:06)
[2018-03-05] MEDS: Sodium Chloride 0.9% 1,000 ML IV SCH (02:30)
[2018-03-05 04:26] LABS: #Lymphocytes 2.3 thou/uL (1.20-3.40); #Monocytes 0.9 thou/uL (0.11-0.59); #Neutrophils 9.2 thou/uL (1.40-6.50); %Basophils 0.4 % (0.0-1.0); %Eosinophils 0.2 % (0.0-10.0); %Lymphocytes 18.6 % (21.0-51.0); %Monocytes 6.9 % (0.0-10.0); Hemoglobin 12.9 g/dL (14.0-18.0); Mean Corpuscular HGB CONC 33.1 g/dL (32.0-36.0); Mean Corpuscular Hemoglobin 33.4 pg (27.0-31.0); Mean Platelet Volume 8.2 fL (7.4-10.4); Platelet Count 106 thou/uL (130-400); RBC Distribution Width 11.6 % (11.5-14.5); Red Blood Cell (RBC) Count 3.87 mill/uL (4.70-6.10); White Blood Cell (WBC) Count 12.4 thou/uL (4.8-10.8)
[2018-03-05 04:39] LABS: Anion Gap 7 mmol/L (10-20); BUN (Urea Nitrogen) 15 mg/dL (8.4-25.7); Calc. Creatinine Clearance 91 mL/min (70-130); Calcium 8.3 mg/dL (7.8-10.44); Carbon Dioxide 25 mmol/L (22-29); Chloride 112 mmol/L (98-107); Estimated GFR-MDRD Greater than 90; Glucose 179 mg/dL (70-105); Potassium 4.4 mmol/L (3.5-5.1); Sodium 140 mmol/L (136-145)
[2018-03-05] MEDS: Insulin Regular 300 UNITS/3 ML VIAL SC PRN ×2 (05:36→12:48)
--- NOTE | 2018-03-05 05:51 | PDOC.FM ---
- Subjective Subjective: Alvin Gutierrez seen at bedside this morning. He is doing well, there were no acute events overnight. He states that he is having chest soreness from his CABG to be expected. VSS overnight. He denies any fever, chills, dyspnea, n/ v. - Objective Vital Signs & Weight: Vital Signs (12 hours) Temp Pulse Ox 03/05/18 04:00 98.7 F 03/05/18 00:00 98.2 F 03/04/18 20:00 98.6 F 100 Weight Admit Weight 64.455 kg Weight 67.8 kg Most Recent Monitor Data Heart Rate from ECG 93 NIBP 109/68 NIBP BP-Mean 81 Respiration from ECG 27 SpO2 97 I&O: 03/03/18 03/04/18 03/05/18 06:59 06:59 06:59 Intake Total 0 390 1717 Output Total 319 439 5821 Balance -400 -135 477 Result Diagrams: 03/05/18 03:30 03/05/18 03:30 <Michael Camilo - Last Filed: 03/05/18 07:08> - Objective Vital Signs & Weight: Vital Signs (12 hours) Temp Pulse Ox 03/05/18 07:29 97 03/05/18 07:00 97.8 F 03/05/18 04:00 98.7 F 03/05/18 00:00 98.2 F Weight Admit Weight 64.455 kg Weight 67.8 kg Most Recent Monitor Data Heart Rate from ECG 103 NIBP 105/75 NIBP BP-Mean 85 Respiration from ECG 29 SpO2 95 I&O: 03/04/18 03/05/18 03/06/18 06:59 06:59 06:59 Intake Total 390 1717 200 Output Total 525 1320 305 Balance -135 397 -105 Result Diagrams: 03/05/18 03:30 03/05/18 03:30 <Ori Bartlett - Last Filed: 03/05/18 10:54> Phys Exam - Physical Examination Constitutional: NAD HEENT: moist MMs Neck: supple Respiratory: no wheezing, no rales, no rhonchi, clear to auscultation bilateral Cardiovascular: RRR, no significant murmur Gastrointestinal: soft, non-tender Musculoskeletal: no edema Neurological: non-focal, moves all 4 limbs Psychiatric: normal affect, A&O x 3 Skin: cap refill <2 seconds Deviation from normal: incisions on chest and skin surrounding tubes have no erythema or drainage -: bandages intact, clean and dry <Michael Camilo - Last Filed: 03/05/18 07:08> Dx/Plan (1) NSTEMI (non-ST elevated myocardial infarction) Code(s): I21.4 - NON-ST ELEVATION (NSTEMI) MYOCARDIAL INFARCTION Status: Acute (2) CAD (coronary artery disease) Code(s): I25.10 - ATHSCL HEART DISEASE OF [place] CORONARY ARTERY W/O ANG PCTRS Status: Chronic Qualifiers: Coronary Disease-Associated Artery/Lesion type: [place] artery (3) Hydronephrosis Code(s): N13.30 - UNSPECIFIED HYDRONEPHROSIS Status: Acute (4) HTN (hypertension) Code(s): I10 - ESSENTIAL (PRIMARY) HYPERTENSION Status: Chronic Qualifiers: Hypertension type: essential hypertension Qualified Code(s): I10 - Essential (primary) hypertension (5) Drug abuse Code(s): F19.10 - OTHER PSYCHOACTIVE SUBSTANCE ABUSE, UNCOMPLICATED Status: Acute - Plan Plan: (1) NSTEMI with Severe 3V CAD: - LAD, OM, and RCA. Post op day #1 s/p 3V CABG - continue daily ASA, Crestor, and antihypertensive medication - counseled on cessation of tobacco and drug use - Post op management per CV surg (2) HTN: - at goal, continue current medications (3) UPJ Obstruction with percutaneous Nephrostomy tube: - Needs outpatient followup - Continue Cipro today, will complete course today. (4) Drug Abuse - CM for NA resources (5) Tobacco Abuse: - as above DVT Ppx: SCDs Code status: Full Dispo: likely 3 more days, Post Op management per CV <Michael Camilo - Last Filed: 03/05/18 07:08> Attending Addendum - Attending Addendum Date/Time: 03/05/18 [id number] I personally evaluated the patient and discussed the management with Dr. Camilo. I agree with and repeated the History, Examination, Assessment and Plan documented above with any addition or exceptions noted below. <Ori Bartlett - Last Filed: 03/05/18 10:54>
[2018-03-05] MEDS: Famotidine/PF 20 mg/2ml Vial SLOW IVP SCH (07:51)
[2018-03-05] MEDS ORDERED: Aspirin 325 MG TAB PO SCH (09:00)
--- NOTE | 2018-03-05 09:32 | RAD ---
CHEST 1 VIEW: Date: 03/05/18 HISTORY: Open heart surgery. COMPARISON: Prior day. FINDINGS: Left side thoracostomy tube is in place. Central venous catheter tip inferior SVC. Mediastinal drains are similar. IMPRESSION: Expected postoperative findings. No significant change. POS: HELADIO
--- NOTE | 2018-03-05 10:11 | PRG ---
DATE OF SERVICE: 03/05/2018 SERVICE: Pulmonary Medicine. INTERVAL HISTORY: The patient is doing great from a respiratory standpoint. He continues to have a little bit of chest discomfort. He got some pain medication making him lightheaded. Outside of this , there has been no interval change to his condition. He is out of bed and into a chair for the firs t time. He is breathing fairly comfortably on just a little bit of oxygen. PHYSICAL EXAMINATION: VITAL SIGNS: Afebrile, pulse 96, blood pressure 107/80, respirations 30, saturation 94% on 2 liters nasal cannula. GENERAL: The patient is awake, alert, in no apparent distress. LUNGS: There is a decreased air entry. There is a slightly prolonged expiratory phase. I do not ap preciate wheezing or rhonchi. That being said, he is not moving much air. HEART: Normal rate and regular. ABDOMEN: Soft, nontender, nondistended. Bowel sounds are positive. MUSCULOSKELETAL: No cyanosis or clubbing. There is no pitting in the bilateral lower extremities. NEUROLOGIC: Grossly nonfocal. LABORATORY DATA: WBC 12.4, hemoglobin 12.9, platelets 106,000 and up-trending. Basic metabolic prof ile is essentially unremarkable otherwise. Chloride is downtrending to 112. IMAGING: Chest x-ray demonstrates stable chest with left-sided thoracostomy drain and mediastinal dr ains. Interval extubation is noted. A right-sided subclavian central venous catheter is in good pos ition. ASSESSMENT: 1. Acute hypoxic respiratory failure, improving. 2. Coronary artery disease, status post coronary artery bypass graft, postoperative day #1. 3. [id number] myocardial infarction. 4. Tobacco abuse. DISCUSSION AND PLAN: The patient is doing great from a respiratory standpoint. His postop course is as expected currently. He will remain in the ICU until cleared for transition to the floor by Dr. Erich soriano. I will continue to follow while the patient remains in this location.
[2018-03-05] MEDS ORDERED: Mineral Oil ENEMA PR PRN (12:53)
[2018-03-05] MEDS ORDERED: diphenhydrAMINE 25 MG CAP PO PRN (12:53)
[2018-03-05] MEDS ORDERED: Zolpidem Tartrate 5 MG TAB PO PRN (12:53)
[2018-03-05] MEDS ORDERED: Bisacodyl 10 MG SUPP PR PRN (12:53)
[2018-03-05] MEDS ORDERED: Artificial Tears 18 DROP/0.9 ML EA EYE PRN (12:53)
[2018-03-05] MEDS ORDERED: Nitroglycerin 0.4 MG TAB (25 Tab Bottle) SL PRN (12:53)
[2018-03-05] MEDS ORDERED: Bisacodyl 5 MG TAB PO PRN (12:53)
[2018-03-05] MEDS ORDERED: Mag-Al 1200 mg/1200 mg/30 ML UDCUP PO PRN (12:53)
[2018-03-05] MEDS ORDERED: Guaifenesin DM 100-10/5 ML UDCUP PO PRN (12:53)
[2018-03-05] MEDS ORDERED: Ketorolac Tromethamine 30 MG/ML VIAL IVP SCH (13:00)
[2018-03-05] MEDS: Ketorolac Tromethamine 30 MG/ML VIAL IVP SCH (18:44)
[2018-03-05] MEDS: Docusate 100 MG CAP PO SCH (21:07)
[2018-03-05] MEDS: Rosuvastatin 20 MG TAB PO SCH (21:07)
[2018-03-06] MEDS: Ketorolac Tromethamine 30 MG/ML VIAL IVP SCH ×4 (00:35→17:40)
--- NOTE | 2018-03-06 05:29 | PDOC.FM ---
- Subjective Subjective: Alvin Gutierrez seen at bedside this morning, he had no acute events overnight. He continues to complain of chest soreness and he would like to get his tubes out, especially his urinary catheter and walk around more today. He denies any fever , chills, dyspnea, n/v. Chest pain is worse when he coughs. - Objective MAR Reviewed: Yes Vital Signs & Weight: Vital Signs (12 hours) Temp Pulse Resp BP Pulse Ox 03/06/18 00:35 97.9 F 97 20 103/70 98 03/05/18 20:00 97.6 F 104 H 20 106/69 95 Weight Admit Weight 64.455 kg Weight 67.8 kg Most Recent Monitor Data Heart Rate from ECG 86 NIBP 96/63 NIBP BP-Mean 74 Respiration from ECG 13 SpO2 96 I&O: 03/04/18 03/05/18 03/06/18 06:59 06:59 06:59 Intake Total 390 1717 1334 Output Total 525 1320 645 Balance -135 397 689 Result Diagrams: 03/06/18 05:10 03/06/18 05:10 <Michael Camilo - Last Filed: 03/06/18 06:42> - Objective Vital Signs & Weight: Vital Signs (12 hours) Temp Pulse Resp BP Pulse Ox 03/06/18 07:52 93 L 03/06/18 07:49 97.6 F 99 19 119/79 93 L 03/06/18 03:55 98.3 F 95 26 H 100/66 97 03/06/18 00:35 97.9 F 97 20 103/70 98 Weight Admit Weight 64.455 kg Weight 67.313 kg Most Recent Monitor Data Heart Rate from ECG 86 NIBP 96/63 NIBP BP-Mean 74 Respiration from ECG 13 SpO2 96 I&O: 03/05/18 03/06/18 03/07/18 06:59 06:59 06:59 Intake Total 1717 1684 Output Total 1320 995 Balance 397 689 Result Diagrams: 03/06/18 05:10 03/06/18 05:10 <Ori Bartlett - Last Filed: 03/06/18 11:27> Phys Exam - Physical Examination Constitutional: NAD HEENT: moist MMs, sclera anicteric Neck: supple, full ROM Respiratory: no wheezing, no rales, no rhonchi, clear to auscultation bilateral Cardiovascular: RRR, no significant murmur Gastrointestinal: soft, non-tender, no distention Musculoskeletal: no edema, pulses present Psychiatric: normal affect, A&O x 3 -: dressing intact and dry, no surrounding erythema <Michael Camilo - Last Filed: 03/06/18 06:42> Dx/Plan (1) NSTEMI (non-ST elevated myocardial infarction) Code(s): I21.4 - NON-ST ELEVATION (NSTEMI) MYOCARDIAL INFARCTION Status: Acute (2) CAD (coronary artery disease) Code(s): I25.10 - ATHSCL HEART DISEASE OF [place] CORONARY ARTERY W/O ANG PCTRS Status: Chronic Qualifiers: Coronary Disease-Associated Artery/Lesion type: [place] artery (3) Hydronephrosis Code(s): N13.30 - UNSPECIFIED HYDRONEPHROSIS Status: Acute (4) HTN (hypertension) Code(s): I10 - ESSENTIAL (PRIMARY) HYPERTENSION Status: Chronic Qualifiers: Hypertension type: essential hypertension Qualified Code(s): I10 - Essential (primary) hypertension (5) Drug abuse Code(s): F19.10 - OTHER PSYCHOACTIVE SUBSTANCE ABUSE, UNCOMPLICATED Status: Acute - Plan Plan: (1) NSTEMI with Severe 3V CAD: - LAD, OM, and RCA. 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 (4) Drug Abuse - CM for NA resources (5) Tobacco Abuse: - as above DVT Ppx: SCDs Code status: Full <Michael Camilo - Last Filed: 03/06/18 06:42> Attending Addendum - Attending Addendum Date/Time: 03/06/18 1126 I personally evaluated the patient and discussed the management with Dr. Roldan. I agree with and repeated the History, Examination, Assessment and Plan documented above with any addition or exceptions noted below. Pt quite angry about all of the tubes coming out of him. Otherwise no complaints. His exam is reassuring. 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 Will defer to CV Sx for pulling FC and CTs. On amio overnight after developing afib per cards. <Ori Bartlett - Last Filed: 03/06/18 11:27>
[2018-03-06 05:49] LABS: #Basophils 0.1 thou/uL (0.0-0.2); #Eosinphils 0.2 thou/uL (0.0-0.7); #Monocytes 1.5 thou/uL (0.11-0.59); #Neutrophils 6.4 thou/uL (1.40-6.50); %Basophils 0.5 % (0.0-1.0); %Eosinophils 1.9 % (0.0-10.0); %Lymphocytes 26.9 % (21.0-51.0); %Monocytes 13.3 % (0.0-10.0); %Neutrophils 57.4 % (42.0-75.0); Hemoglobin 11.2 g/dL (14.0-18.0); Mean Corpuscular HGB CONC 32.2 g/dL (32.0-36.0); Mean Corpuscular Hemoglobin 32.3 pg (27.0-31.0); Mean Platelet Volume 7.9 fL (7.4-10.4); Platelet Count 109 thou/uL (130-400); RBC Distribution Width 11.5 % (11.5-14.5); Red Blood Cell (RBC) Count 3.47 mill/uL (4.70-6.10); White Blood Cell (WBC) Count 11.1 thou/uL (4.8-10.8)
[2018-03-06 05:50] LABS: Anion Gap 7 mmol/L (10-20); BUN (Urea Nitrogen) 21 mg/dL (8.4-25.7); Calc. Creatinine Clearance 98 mL/min (70-130); Calcium 8.3 mg/dL (7.8-10.44); Carbon Dioxide 24 mmol/L (22-29); Chloride 110 mmol/L (98-107); Estimated GFR-MDRD Greater than 90; Glucose 116 mg/dL (70-105); Sodium 137 mmol/L (136-145)
[2018-03-06] MEDS ORDERED: Amiodarone HCl 150 MG, Admixture Fee 1 EACH in Dextrose 5% in Water 100 ML IVPB SCH ×2 (08:30→09:30)
[2018-03-06] MEDS: Amiodarone HCl 450 MG, Admixture Fee 1 EACH in Dextrose 5% in Water 250 ML IVPB SCH ×2 (08:40→17:37)
[2018-03-06] MEDS: Docusate 100 MG CAP PO SCH ×2 (08:43→21:28)
[2018-03-06 09:25] LABS: ALT (SGPT) 43 U/L (8-55); AST (SGOT) 43 U/L (5-34); Albumin 3.1 g/dL (3.5-5.0); Alkaline Phosphatase 105 U/L (40-150); Bilirubin, Direct 0.7 mg/dL (0.1-0.3); Bilirubin, Total 1.1 mg/dL (0.2-1.2); Magnesium 1.7 mg/dL (1.6-2.6); Protein, Total 5.4 g/dL (6.0-8.3)
[2018-03-06] MEDS ORDERED: Metolazone 5 MG TAB PO SCH (12:00)
[2018-03-06] MEDS ORDERED: Amiodarone HCl 150 MG in Dextrose 5% in Water 100 ML IVPB SCH (17:30)
--- NOTE | 2018-03-06 19:09 | PRG ---
DATE OF SERVICE: 03/06/2018 SERVICE: Pulmonary Medicine. INTERVAL HISTORY: The patient is doing great from a respiratory standpoint. He denies any current c hest pain, fevers, chills or shortness of breath. He went into atrial fibrillation overnight. That being said, he has been weaned down to 1 liter nasal cannula. PHYSICAL EXAMINATION: VITAL SIGNS: Afebrile, pulse 98, blood pressure 127/75, respirations 18, saturation 96% on 2 liters nasal cannula. GENERAL: The patient is awake and alert, in no apparent distress. LUNGS: Decent air entry. Dependent crackles are minimal. There is a slightly prolonged expiratory phase without wheezing. HEART: Normal rate, regular. ABDOMEN: Soft, nontender, nondistended. Bowel sounds are positive. MUSCULOSKELETAL: No cyanosis or clubbing. There is no pitting in the bilateral lower extremities. NEUROLOGIC: Grossly nonfocal. LABORATORY DATA: WBC 11.1, hemoglobin 11.2, platelets 109,000 and roughly stable. Basic metabolic p rofile is unremarkable. AST is down trending to 43. TSH falls within the normal limits. ASSESSMENT: 1. Acute hypoxic respiratory failure, resolving. 2. Coronary artery disease, status post coronary artery bypass graft, postoperative day 2. 3. Non-ST elevation myocardial infarction. 4. Atrial fibrillation with rapid ventricular response, in the postop period. 5. Tobacco abuse. DISCUSSION AND PLAN: The patient is doing fantastic. At this point, he has no further requirements for inpatient Pulmonary or Critical Care opinion and I will sign off. Please call with additional qu estions or concerns moving forward.
[2018-03-06] MEDS: Rosuvastatin 20 MG TAB PO SCH (21:27)
[2018-03-07] MEDS: Ketorolac Tromethamine 30 MG/ML VIAL IVP SCH ×2 (00:06→06:23)
[2018-03-07] MEDS: Amiodarone HCl 450 MG, Admixture Fee 1 EACH in Dextrose 5% in Water 250 ML IVPB SCH ×2 (02:48→18:09)
[2018-03-07 05:41] LABS: #Eosinphils 0.3 thou/uL (0.0-0.7); #Lymphocytes 2.6 thou/uL (1.20-3.40); #Monocytes 1.2 thou/uL (0.11-0.59); %Basophils 0.1 % (0.0-1.0); %Eosinophils 2.6 % (0.0-10.0); %Monocytes 11.5 % (0.0-10.0); %Neutrophils 59.8 % (42.0-75.0); Hemoglobin 11.2 g/dL (14.0-18.0); Mean Corpuscular HGB CONC 33.2 g/dL (32.0-36.0); Mean Corpuscular Hemoglobin 33.1 pg (27.0-31.0); Mean Corpuscular Volume 99.8 fL (78.0-98.0); Platelet Count 130 thou/uL (130-400); RBC Distribution Width 11.4 % (11.5-14.5); Red Blood Cell (RBC) Count 3.39 mill/uL (4.70-6.10)
[2018-03-07 05:55] LABS: Anion Gap 8 mmol/L (10-20); BUN (Urea Nitrogen) 20 mg/dL (8.4-25.7); Calc. Creatinine Clearance 91 mL/min (70-130); Calcium 8.2 mg/dL (7.8-10.44); Carbon Dioxide 26 mmol/L (22-29); Chloride 104 mmol/L (98-107); Estimated GFR-MDRD Greater than 90; Glucose 106 mg/dL (70-105); Potassium 3.7 mmol/L (3.5-5.1); Sodium 134 mmol/L (136-145)
--- NOTE | 2018-03-07 08:10 | PDOC.FM ---
- Subjective Subjective: Patient is doing well this morning. Drains were removed as well as otto which allowed him to be more mobile which he is excited about. He walked yesterday without difficulty. He reports some pain this morning but bearable. No SOB, IS to 800 today. Overnight he converted from Afib to sinus rhythm and this morning is sinus in 70's. - Objective MAR Reviewed: Yes Vital Signs & Weight: Vital Signs (12 hours) Temp Pulse Resp BP Pulse Ox 03/07/18 07:25 98.3 F 69 16 140/84 99 03/07/18 03:30 98.0 F 72 19 121/78 95 03/06/18 23:00 98.8 F 77 23 H 122/78 98 Weight Admit Weight 64.455 kg Weight 66.315 kg Most Recent Monitor Data Heart Rate from ECG 86 NIBP 96/63 NIBP BP-Mean 74 Respiration from ECG 13 SpO2 96 I&O: 03/06/18 03/07/18 03/08/18 06:59 06:59 06:59 Intake Total 1684 1240 Output Total 995 1775 Balance 689 535 Result Diagrams: 03/07/18 05:18 03/07/18 05:18 Radiology Reviewed by me: Yes <Erendira Partida - Last Filed: 03/07/18 08:08> - Objective Vital Signs & Weight: Vital Signs (12 hours) Temp Pulse Resp BP Pulse Ox 03/07/18 07:25 98.3 F 69 16 140/84 99 03/07/18 03:30 98.0 F 72 19 121/78 95 Weight Admit Weight 64.455 kg Weight 66.315 kg Most Recent Monitor Data Heart Rate from ECG 86 NIBP 96/63 NIBP BP-Mean 74 Respiration from ECG 13 SpO2 96 I&O: 03/06/18 03/07/18 03/08/18 06:59 06:59 06:59 Intake Total 1684 1240 Output Total 995 1775 Balance 689 535 Result Diagrams: 03/07/18 05:18 03/07/18 05:18 <Ori Bartlett - Last Filed: 03/07/18 11:00> Phys Exam - Physical Examination Constitutional: NAD HEENT: moist MMs Respiratory: no wheezing, no rales, clear to auscultation bilateral Cardiovascular: RRR, no significant murmur Gastrointestinal: soft, non-tender dressing in place over drain site- no leakage noted Musculoskeletal: no edema stockings in place Neurological: moves all 4 limbs Psychiatric: normal affect, A&O x 3 Deviation from normal: surgical site clean, dry, intact <Erendira Partida - Last Filed: 03/07/18 08:08> Dx/Plan (1) CAD (coronary artery disease) Code(s): I25.10 - ATHSCL HEART DISEASE OF [place] CORONARY ARTERY W/O ANG PCTRS Status: Chronic Qualifiers: Coronary Disease-Associated Artery/Lesion type: [place] artery (2) NSTEMI (non-ST elevated myocardial infarction) Code(s): I21.4 - NON-ST ELEVATION (NSTEMI) MYOCARDIAL INFARCTION Status: Acute (3) Drug abuse Code(s): F19.10 - OTHER PSYCHOACTIVE SUBSTANCE ABUSE, UNCOMPLICATED Status: Acute (4) Hepatitis C antibody positive in blood Code(s): R76.8 - OTHER SPECIFIED ABNORMAL IMMUNOLOGICAL FINDINGS IN SERUM Status: Acute (5) HTN (hypertension) Code(s): I10 - ESSENTIAL (PRIMARY) HYPERTENSION Status: Chronic Qualifiers: Hypertension type: essential hypertension Qualified Code(s): I10 - Essential (primary) hypertension (6) Tobacco abuse Code(s): Z72.0 - TOBACCO USE Status: Chronic - Plan Plan: NSTEMI with Severe 3V CAD s/p CABG: - LAD, OM, and RCA. Postop Day #3 - continue daily ASA, Crestor, and antihypertensive medication - counseled on cessation of tobacco and drug use - PT/OT Postop Afib, resolved - currently on Amio drip at 0.5mg/min - likely transition to PO medication but will allow cardiology to make recs HTN: - at goal, continue current medications UPJ Obstruction with percutaneous Nephrostomy tube: - Needs outpatient followup Drug Abuse - CM for NA resources Tobacco Abuse: - as above DVT Ppx: SCD, tedhose, ambulation Code status: Full Dispo: d/c pending cards recs. <Erendira Partida - Last Filed: 03/07/18 08:08> Attending Addendum - Attending Addendum Date/Time: 03/07/18 1100 I personally evaluated the patient and discussed the management with Dr. Partida. I agree with and repeated the History, Examination, Assessment and Plan documented above with any addition or exceptions noted below. <Ori Bartlett - Last Filed: 03/07/18 11:00>
[2018-03-07] MEDS: Docusate 100 MG CAP PO SCH ×2 (08:33→21:35)
--- NOTE | 2018-03-07 08:43 | RAD ---
SINGLE VIEW OF THE CHEST: Comparison: 03-05-18 History: Status post open heart surgery. FINDINGS: Single view of the chest shows a cardiomediastinal silhouette that is upper limits in normal in size. There may be a small amount of air in the left aspect of the heart which could be within the pericar dium. Patient is status post sternotomy. The central venous catheter is unchanged in position. The le ft chest tube has been removed without evidence of pneumothorax. IMPRESSION: Left chest tube removal without evidence of pneumothorax. POS: TPC
--- NOTE | 2018-03-07 16:56 | EKG ---
Test Reason : S/P CABG Blood Pressure : / mmHG Vent. Rate : 069 BPM Atrial Rate : 069 BPM P-R Int : 146 ms QRS Dur : 070 ms QT Int : 448 ms P-R-T Axes : 066 058 251 degrees QTc Int : 480 ms Normal sinus rhythm T wave abnormality, consider inferolateral ischemia Prolonged QT Abnormal ECG When compared with ECG of 03-MAR-2018 09:55, T wave inversion now evident in Inferior leads T wave inversion now evident in Lateral leads QT has lengthened Confirmed by DR. Xiang POLANCO ([id number]) on 03/07/2018 4:55:44 PM Referred By: PEYMAN Confirmed By:DR. Xiang POLANCO
[2018-03-07] MEDS: HYDROcodone/Acetaminophen 5/325 mg Tablet PO PRN (18:08)
--- NOTE | 2018-03-07 18:57 | PDOC.CTH ---
Cardiology Progress Note - Objective Vital Signs Temp Pulse Pulse Pulse Resp BP BP 03/07/18 16:37 99.6 F 84 18 03/07/18 14:02 77 76 161/86 H 130/80 03/07/18 11:26 97.7 F 74 18 03/07/18 08:52 73 76 127/77 130/80 03/07/18 07:25 98.3 F 69 16 BP Pulse Ox 03/07/18 16:37 121/83 95 03/07/18 14:02 03/07/18 11:26 123/82 98 03/07/18 08:52 03/07/18 07:25 140/84 99 Admit Weight 142 lb 1.583 oz Weight 146 lb 3.2 oz 03/06/18 03/07/18 03/08/18 06:59 06:59 06:59 Intake Total 1684 1240 650 Output Total 995 1777 1400 Balance 226 -362 -220 - Labs Result Diagrams: 03/07/18 05:18 03/07/18 05:18 Troponin/CKMB CK-MB (CK-2) 2.4 ng/mL (0-6.6) 03/03/18 09:31 Troponin I 0.234 ng/mL (< 0.028) H 03/03/18 09:31 - Assessment/Plan 1. NSTEMI 2. S/P CABG 3. Post op afib 4. Chronic otto catheter 5. PLAN: - Will switch his amiodarone to PO which he will need for only one month. - Will add low dose BB today and ACEI tomorrow if BP allows. - Continue to increase PT as tolerated.
[2018-03-07] MEDS ORDERED: Sodium Chloride 0.9% 30 ML ONE (20:11)
[2018-03-07] MEDS: Amiodarone 200 MG TAB PO SCH (21:35)
[2018-03-07] MEDS: Rosuvastatin 20 MG TAB PO SCH (21:35)
[2018-03-08] MEDS: HYDROcodone/Acetaminophen 5/325 mg Tablet PO PRN ×2 (04:15→14:35)
[2018-03-08 06:01] LABS: #Eosinphils 0.4 thou/uL (0.0-0.7); #Lymphocytes 2.3 thou/uL (1.20-3.40); #Monocytes 1.4 thou/uL (0.11-0.59); #Neutrophils 5.6 thou/uL (1.40-6.50); %Basophils 0.3 % (0.0-1.0); %Eosinophils 4.6 % (0.0-10.0); %Monocytes 14.1 % (0.0-10.0); %Neutrophils 57.1 % (42.0-75.0); Hemoglobin 11.8 g/dL (14.0-18.0); Mean Corpuscular HGB CONC 33.5 g/dL (32.0-36.0); Mean Corpuscular Hemoglobin 33.1 pg (27.0-31.0); Mean Corpuscular Volume 98.9 fL (78.0-98.0); Mean Platelet Volume 7.8 fL (7.4-10.4); Platelet Count 184 thou/uL (130-400); RBC Distribution Width 11.4 % (11.5-14.5); Red Blood Cell (RBC) Count 3.57 mill/uL (4.70-6.10); White Blood Cell (WBC) Count 9.8 thou/uL (4.8-10.8)
[2018-03-08 06:05] LABS: Anion Gap 9 mmol/L (10-20); BUN (Urea Nitrogen) 17 mg/dL (8.4-25.7); Calc. Creatinine Clearance 91 mL/min (70-130); Calcium 8.6 mg/dL (7.8-10.44); Carbon Dioxide 29 mmol/L (22-29); Chloride 101 mmol/L (98-107); Estimated GFR-MDRD Greater than 90; Glucose 102 mg/dL (70-105); Potassium 3.1 mmol/L (3.5-5.1); Sodium 136 mmol/L (136-145)
--- NOTE | 2018-03-08 06:11 | PDOC.FM ---
- Subjective Subjective: Patient is doing well this morning. He reports feeling better than yesterday. Nursing staff changed dressing over nephrostomy tube insertion site and recognized no suture in place. Otherwise no events overnight. Amio drip stopped around 2100 yesterday and transitioned to PO amiodarone. No irregular rhythm or rate as monitered by telemetry. Denies CP, sob, and back pain. - Objective MAR Reviewed: Yes Vital Signs & Weight: Vital Signs (12 hours) Temp Pulse Resp BP Pulse Ox 03/08/18 04:00 98.5 F 73 20 125/82 97 03/07/18 23:55 98.5 F 81 18 113/71 96 03/07/18 21:50 98 03/07/18 21:31 99.2 F 83 20 101/57 L 98 Weight Admit Weight 64.455 kg Weight 62.868 kg Most Recent Monitor Data Heart Rate from ECG 86 NIBP 96/63 NIBP BP-Mean 74 Respiration from ECG 13 SpO2 96 I&O: 03/06/18 03/07/18 03/08/18 06:59 06:59 06:59 Intake Total 1684 1240 936.7 Output Total 995 1775 3225 Balance 557 -777 -2288.3 Result Diagrams: 03/08/18 05:04 03/08/18 05:04 <Erendira Partida - Last Filed: 03/08/18 08:50> - Objective Vital Signs & Weight: Vital Signs (12 hours) Temp Pulse Resp BP Pulse Ox 03/08/18 20:01 98 F 80 20 107/74 95 03/08/18 16:06 98.6 F 74 16 111/66 98 03/08/18 11:19 97.7 F 72 18 116/73 95 Weight Admit Weight 64.455 kg Weight 62.868 kg Most Recent Monitor Data Heart Rate from ECG 86 NIBP 96/63 NIBP BP-Mean 74 Respiration from ECG 13 SpO2 96 I&O: 03/07/18 03/08/18 03/09/18 06:59 06:59 06:59 Intake Total 1240 936.7 900 Output Total 1775 3225 1050 Balance -009 -2288.3 -150 Result Diagrams: 03/08/18 05:04 03/08/18 05:04 <Ori Bartlett - Last Filed: 03/08/18 21:48> Phys Exam - Physical Examination Constitutional: NAD HEENT: moist MMs Respiratory: no wheezing mild rhonchi at bases, good air movement Cardiovascular: RRR, no significant murmur Gastrointestinal: soft, non-tender, no distention nephrostomy bag in place with carine urine present Musculoskeletal: no edema Neurological: moves all 4 limbs Psychiatric: normal affect, A&O x 3 Deviation from normal: sternotomy incision c, d, i. nephrostomy site without tube secured -: by suture as visible at skin surface, no drainage note at site <Erendira Partida - Last Filed: 03/08/18 08:50> Dx/Plan (1) CAD (coronary artery disease) Code(s): I25.10 - ATHSCL HEART DISEASE OF [place] CORONARY ARTERY W/O ANG PCTRS Status: Chronic Qualifiers: Coronary Disease-Associated Artery/Lesion type: [place] artery (2) NSTEMI (non-ST elevated myocardial infarction) Code(s): I21.4 - NON-ST ELEVATION (NSTEMI) MYOCARDIAL INFARCTION Status: Acute (3) Drug abuse Code(s): F19.10 - OTHER PSYCHOACTIVE SUBSTANCE ABUSE, UNCOMPLICATED Status: Acute (4) Hepatitis C antibody positive in blood Code(s): R76.8 - OTHER SPECIFIED ABNORMAL IMMUNOLOGICAL FINDINGS IN SERUM Status: Acute (5) HTN (hypertension) Code(s): I10 - ESSENTIAL (PRIMARY) HYPERTENSION Status: Chronic Qualifiers: Hypertension type: essential hypertension Qualified Code(s): I10 - Essential (primary) hypertension (6) Tobacco abuse Code(s): Z72.0 - TOBACCO USE Status: Chronic (7) Ureteropelvic junction (UPJ) obstruction, left Code(s): N13.5 - CROSSING VESSEL AND STRICTURE OF URETER W/O HYDRONEPHROSIS Status: Chronic - Plan Plan: NSTEMI with Severe 3V CAD s/p CABG: - LAD, OM, and RCA. Postop Day #4 - continue daily ASA, Crestor, and antihypertensive medication - Coreg 3.125mg BID and plan for addition of WM-I today - counseled on cessation of tobacco and drug use - PT/OT Postop Afib, resolved - continue PO Amiodarone 400mg BID for 1 month per Cards recs. HTN: - at goal, continue current medications UPJ Obstruction with percutaneous Nephrostomy tube: - Needs outpatient followup Drug Abuse - CM for NA resources Tobacco Abuse: - as above DVT Ppx: SCD, tedhose, ambulation Code status: Full Dispo: d/c pending cards recs. <Erendira Partida - Last Filed: 03/08/18 08:50> Attending Addendum - Attending Addendum Date/Time: 03/08/182147 I personally evaluated the patient and discussed the management with Dr. Partiad I agree with and repeated the History, Examination, Assessment and Plan documented above with any addition or exceptions noted below. <Ori Bartlett - Last Filed: 03/08/18 21:48>
[2018-03-08] MEDS ORDERED: Potassium Chloride 20 MEQ TAB PO SCH (06:15)
[2018-03-08] MEDS: Carvedilol 3.125 MG TAB PO SCH ×2 (08:24→16:08)
[2018-03-08] MEDS: Amiodarone 200 MG TAB PO SCH ×2 (08:24→20:39)
[2018-03-08] MEDS: Docusate 100 MG CAP PO SCH ×2 (08:25→20:39)
[2018-03-08 14:30] LABS: Actual Bicarbonate (HCO3a) 20.2 mEq/L (22-28); Analyzer IN Cardio OR; Base Excess (BEa) -3.8 mEq/L (-2.0 to +3.0); CO2 Tension 33.7 mmHg (35.0-45.0); Carboxyhemoglobin (COHb) 0.9 gm% (0.0-3.0); Hemoglobin (Hb) 14.3 g/dL (14.0-18.0); O2 Tension (PaO2) 421.9 mmHg (80.0-100.0); Potassium - ABG Lab 3.91 mmol/L (3.70-5.30)
[2018-03-08 14:30] LABS: Actual Bicarbonate (HCO3a) 20.5 mEq/L (22-28); Analyzer IN Cardio OR; Base Excess (BEa) -3.6 mEq/L (-2.0 to +3.0); CO2 Tension 34.1 mmHg (35.0-45.0); Calcium, Ionized 1.11 mmol/L (1.12-1.30); Carboxyhemoglobin (COHb) 0.8 gm% (0.0-3.0); Hemoglobin (Hb) 14.4 g/dL (14.0-18.0); Potassium - ABG Lab 3.95 mmol/L (3.70-5.30)
[2018-03-08 14:31] LABS: Actual Bicarbonate (HCO3v) 28 mEq/L (22-28); Analyzer IN Cardio OR; Calcium, Ionized 0.97 mmol/L (1.16-1.32); Chloride (ABG LAB) 107 mmol/L (98-106); Hemoglobin (Hb) 11.4 g/dL (13.1-17.2); Potassium - ABG Lab 6.89 mmol/L (3.70-5.30); Sodium 132.1 mmol/L (133-146); pH (venous) 7.33 (7.32-7.43)
[2018-03-08 14:31] LABS: Actual Bicarbonate (HCO3a) 23.8 mEq/L (22-28); Analyzer IN Cardio OR; Base Excess (BEa) -3.8 mEq/L (-2.0 to +3.0); CO2 Tension 54.7 mmHg (35.0-45.0); Calcium, Ionized 1.04 mmol/L (1.12-1.30); Carboxyhemoglobin (COHb) 0.3 gm% (0.0-3.0); Hemoglobin (Hb) 12.6 g/dL (14.0-18.0); O2 Tension (PaO2) 454.8 mmHg (80.0-100.0); Potassium - ABG Lab 7.41 mmol/L (3.70-5.30); pH, Arterial 7.26 (7.35-7.45)
[2018-03-08 14:32] LABS: Actual Bicarbonate (HCO3a) 21.6 mEq/L (22-28); Analyzer IN Cardio OR; Base Excess (BEa) -2.8 mEq/L (-2.0 to +3.0); CO2 Tension 36.5 mmHg (35.0-45.0); Calcium, Ionized 0.98 mmol/L (1.12-1.30); Carboxyhemoglobin (COHb) 0.9 gm% (0.0-3.0); Hemoglobin (Hb) 11.2 g/dL (14.0-18.0); O2 Tension (PaO2) 341.4 mmHg (80.0-100.0); Potassium - ABG Lab 7.04 mmol/L (3.70-5.30); pH, Arterial 7.39 (7.35-7.45)
[2018-03-08 14:32] LABS: Actual Bicarbonate (HCO3a) 22.9 mEq/L (22-28); Analyzer IN Cardio OR; Base Excess (BEa) -1.5 mEq/L (-2.0 to +3.0); CO2 Tension 37.1 mmHg (35.0-45.0); Calcium, Ionized 1.16 mmol/L (1.12-1.30); Carboxyhemoglobin (COHb) 0.3 gm% (0.0-3.0); Hemoglobin (Hb) 11.3 g/dL (14.0-18.0); O2 Tension (PaO2) 385.6 mmHg (80.0-100.0); Potassium - ABG Lab 5.72 mmol/L (3.70-5.30); pH, Arterial 7.41 (7.35-7.45)
[2018-03-08 14:32] LABS: Actual Bicarbonate (HCO3a) 25.2 mEq/L (22-28); Analyzer IN Cardio OR; Base Excess (BEa) -0.8 mEq/L (-2.0 to +3.0); CO2 Tension 48.1 mmHg (35.0-45.0); Carboxyhemoglobin (COHb) 0.5 gm% (0.0-3.0); Hemoglobin (Hb) 9.7 g/dL (14.0-18.0); O2 Tension (PaO2) 144.3 mmHg (80.0-100.0); Potassium - ABG Lab 3.89 mmol/L (3.70-5.30); pH, Arterial 7.34 (7.35-7.45)
[2018-03-08 14:33] LABS: Actual Bicarbonate (HCO3a) 22.6 mEq/L (22-28); Analyzer IN Cardio OR; CO2 Tension 37.9 mmHg (35.0-45.0); Calcium, Ionized 1.17 mmol/L (1.12-1.30); Carboxyhemoglobin (COHb) 0.3 gm% (0.0-3.0); Hemoglobin (Hb) 11.2 g/dL (14.0-18.0); Potassium - ABG Lab 3.82 mmol/L (3.70-5.30); pH, Arterial 7.39 (7.35-7.45)
[2018-03-08 14:51] LABS: Puncture Site ALINE
[2018-03-08 14:51] LABS: Puncture Site ALINE
[2018-03-08 14:52] LABS: Puncture Site ALINE
[2018-03-08 14:53] LABS: Puncture Site ALINE
[2018-03-08 14:53] LABS: Puncture Site ALINE
[2018-03-08 14:54] LABS: Puncture Site ALINE
[2018-03-08 14:55] LABS: O2 Tension (PaO2) 603.9 mmHg (80.0-100.0)
[2018-03-08 14:56] LABS: Puncture Site ALINE
--- NOTE | 2018-03-08 18:26 | PDOC.CTH ---
Cardiology Progress Note - Subjective Doing better today. Still has not had a BM but feels he is close to having one. he has walked with cardiac rehab and is tolerating this well. - Objective Vital Signs Temp Pulse Pulse Pulse Resp BP BP 03/08/18 16:06 98.6 F 74 16 03/08/18 11:19 97.7 F 72 18 03/08/18 09:46 74 70 127/84 116/79 03/08/18 08:20 97.7 F 75 18 BP Pulse Ox 03/08/18 16:06 111/66 98 03/08/18 11:19 116/73 95 03/08/18 09:46 03/08/18 08:20 127/78 98 Admit Weight 142 lb 1.583 oz Weight 138 lb 9.6 oz 03/07/18 03/08/18 03/09/18 06:59 06:59 06:59 Intake Total 1240 936.7 Output Total 1775 3225 Balance -535 -2288.3 - Physical Examination General/Neuro: alert & oriented x3, NAD Neck: no JVD present Lungs: CTA, unlabored respirations Heart: RRR Abdomen: NT/ND, other: (+BS) Extremities: other: (no edema) - Telemetry Telemetry Rhythm: NSR - Labs Result Diagrams: 03/08/18 05:04 03/08/18 05:04 Troponin/CKMB CK-MB (CK-2) 2.4 ng/mL (0-6.6) 03/03/18 09:31 Troponin I 0.234 ng/mL (< 0.028) H 03/03/18 09:31 - Assessment/Plan 1. NSTEMI 2. S/P CABG 3. Post op afib 4. Chronic otto catheter 5. Hypokalemia PLAN: - Amiodarone 400 mg BID for 6 days then 200 mg daily to complete one month - BP borderline low, cannot ad ACEI today. - Continue to increase PT as tolerated. - Replace K. - Home after BM.
[2018-03-08] MEDS ORDERED: Sodium Chloride 0.9% 30 ML ONE (20:33)
[2018-03-08] MEDS: Rosuvastatin 20 MG TAB PO SCH (20:39)
[2018-03-09] MEDS: HYDROcodone/Acetaminophen 5/325 mg Tablet PO PRN ×2 (03:14→14:08)
[2018-03-09 04:57] LABS: #Eosinphils 0.5 thou/uL (0.0-0.7); #Lymphocytes 2.8 thou/uL (1.20-3.40); #Monocytes 1.5 thou/uL (0.11-0.59); %Basophils 0.4 % (0.0-1.0); %Eosinophils 5.6 % (0.0-10.0); %Lymphocytes 28.1 % (21.0-51.0); %Monocytes 14.9 % (0.0-10.0); %Neutrophils 51.1 % (42.0-75.0); Mean Corpuscular HGB CONC 33.5 g/dL (32.0-36.0); Mean Corpuscular Hemoglobin 33.1 pg (27.0-31.0); Mean Corpuscular Volume 98.6 fL (78.0-98.0); Mean Platelet Volume 7.4 fL (7.4-10.4); Platelet Count 247 thou/uL (130-400); RBC Distribution Width 11.6 % (11.5-14.5); Red Blood Cell (RBC) Count 3.92 mill/uL (4.70-6.10); White Blood Cell (WBC) Count 9.8 thou/uL (4.8-10.8)
[2018-03-09 05:25] LABS: Anion Gap 10 mmol/L (10-20); BUN (Urea Nitrogen) 19 mg/dL (8.4-25.7); Calc. Creatinine Clearance 85 mL/min (70-130); Carbon Dioxide 27 mmol/L (22-29); Chloride 102 mmol/L (98-107); Estimated GFR-MDRD Greater than 90; Glucose 108 mg/dL (70-105); Potassium 3.9 mmol/L (3.5-5.1); Sodium 135 mmol/L (136-145)
[2018-03-09] MEDS: Docusate 100 MG CAP PO SCH (09:17)
[2018-03-09] MEDS: Amiodarone 200 MG TAB PO SCH (09:17)
[2018-03-09] MEDS: Carvedilol 3.125 MG TAB PO SCH (09:17)
[2018-03-09] MEDS ORDERED: Polyethylene Glycol 3350 17 GM Packet PO SCH (10:15)
--- NOTE | 2018-03-09 10:49 | PDOC.FM ---
- Subjective Subjective: Patient doing well this morning. No documented telemetry events. Denies chest pain, sob, and is ambulating well. He has not had a BM but reports he believes it is due to not much intake since admission. - Objective MAR Reviewed: Yes Vital Signs & Weight: Vital Signs (12 hours) Temp Pulse Resp BP Pulse Ox 03/09/18 08:00 97.9 F 78 18 115/80 96 03/09/18 03:09 98.1 F 76 20 113/82 94 L Weight Admit Weight 64.455 kg Weight 61.28 kg Most Recent Monitor Data Heart Rate from ECG 86 NIBP 96/63 NIBP BP-Mean 74 Respiration from ECG 13 SpO2 96 I&O: 03/08/18 03/09/18 03/10/18 06:59 06:59 06:59 Intake Total 936.7 1170 Output Total 3225 1974 Balance -2288.3 -805 Result Diagrams: 03/09/18 04:31 03/09/18 04:31 <Erendira Partida - Last Filed: 03/09/18 10:49> - Objective Vital Signs & Weight: Vital Signs (12 hours) Temp Pulse Pulse Pulse Resp BP BP 03/09/18 12:50 98 F 72 20 03/09/18 09:15 89 81 144/83 H 109/75 03/09/18 08:00 97.9 F 78 18 BP Pulse Ox 03/09/18 12:50 112/73 03/09/18 09:15 03/09/18 08:00 115/80 96 Weight Admit Weight 64.455 kg Weight 61.28 kg Most Recent Monitor Data Heart Rate from ECG 86 NIBP 96/63 NIBP BP-Mean 74 Respiration from ECG 13 SpO2 96 I&O: 03/08/18 03/09/18 03/10/18 06:59 06:59 06:59 Intake Total 936.7 1170 Output Total 3225 1974 Balance SwingShot2288.3 -805 Result Diagrams: 03/09/18 04:31 03/09/18 04:31 <Ori Bartlett - Last Filed: 03/09/18 16:49> Phys Exam - Physical Examination Constitutional: NAD HEENT: moist MMs Neck: no nodes Respiratory: no wheezing, clear to auscultation bilateral Cardiovascular: RRR, no significant murmur Gastrointestinal: soft dressings in place without drainage Musculoskeletal: no edema Psychiatric: A&O x 3 <Erendira Partida - Last Filed: 03/09/18 10:49> Dx/Plan (1) CAD (coronary artery disease) Code(s): I25.10 - ATHSCL HEART DISEASE OF [place] CORONARY ARTERY W/O ANG PCTRS Status: Chronic Qualifiers: Coronary Disease-Associated Artery/Lesion type: [place] artery (2) NSTEMI (non-ST elevated myocardial infarction) Code(s): I21.4 - NON-ST ELEVATION (NSTEMI) MYOCARDIAL INFARCTION Status: Acute (3) Drug abuse Code(s): F19.10 - OTHER PSYCHOACTIVE SUBSTANCE ABUSE, UNCOMPLICATED Status: Acute (4) Hepatitis C antibody positive in blood Code(s): R76.8 - OTHER SPECIFIED ABNORMAL IMMUNOLOGICAL FINDINGS IN SERUM Status: Acute (5) HTN (hypertension) Code(s): I10 - ESSENTIAL (PRIMARY) HYPERTENSION Status: Chronic Qualifiers: Hypertension type: essential hypertension Qualified Code(s): I10 - Essential (primary) hypertension (6) Tobacco abuse Code(s): Z72.0 - TOBACCO USE Status: Chronic (7) Ureteropelvic junction (UPJ) obstruction, left Code(s): N13.5 - CROSSING VESSEL AND STRICTURE OF URETER W/O HYDRONEPHROSIS Status: Chronic - Plan Plan: NSTEMI with Severe 3V CAD s/p CABG: - LAD, OM, and RCA. Postop Day #5 - continue daily ASA, Crestor, and antihypertensive medication - Coreg 3.125mg BID and plan for addition of WM-I today - counseled on cessation of tobacco and drug use - PT/OT Constipation - on BID colace - will give miralax today. Postop Afib, resolved - continue PO Amiodarone 400mg BID for 6 days then transition to 200mg daily for 1 month per Cards recs. HTN: - at goal, continue current medications UPJ Obstruction with percutaneous Nephrostomy tube: - Needs outpatient followup Drug Abuse - CM for NA resources Tobacco Abuse: - as above DVT Ppx: SCD, tedhose, ambulation Code status: Full Dispo: d/c home today pending BM <Erendira Partida - Last Filed: 03/09/18 10:49> Attending Addendum - Attending Addendum Date/Time: 03/09/18 5691 I personally evaluated the patient and discussed the management with Dr. Partida. I agree with and repeated the History, Examination, Assessment and Plan documented above with any addition or exceptions noted below. Not a candidate for ACEI d/t c/f low BP. <Ori Bartlett - Last Filed: 03/09/18 16:49>
--- NOTE | 2018-03-09 11:17 | DIS ---
DATE OF ADMISSION: 03/03/2018 DATE OF DISCHARGE: 03/09/2018 PRINCIPAL DIAGNOSES: Coronary artery disease with a ckt-MR-impiuwalc myocardial infarction. SECONDARY DIAGNOSES: Present, but not specifically addressed. Hypertension, hepatitis C, left urete ropelvic junction obstruction, and urinary tract infection. PROCEDURES PERFORMED: Cardiac catheterization, 03/03/2018; coronary artery bypass grafting x4 with l eft internal mammary artery to the LAD and reverse greater saphenous vein graft from the aorta to the second diagonal, the obtuse marginal, and the PDA, 03/04/2018. HISTORY OF PRESENT ILLNESS AND HOSPITAL COURSE: The patient is a 57-year-old man with a family and p ersonal history of premature coronary disease. The patient was awakened from sleep with chest pain a nalogous to the stereotypical elephant sitting on his chest discomfort that was similar to what he putnam d experienced in 2002 when he underwent LAD stenting. The pain worsened and was associated with shor tness of breath and diaphoresis. He presented to the emergency room and his pain improved with nitro glycerin. He did not have any stereotypical acute ischemic changes on his EKG, but he did have a ris e and fall in his troponins with a peak of 0.285 consistent with a [id number]-hslrcxioy myocardial infarc tion. Cardiac catheterization demonstrated 3-vessel coronary artery disease with an LVEF of around 5 0% with some inferoapical hypokinesis. He had a significant lesion in his mid LAD beyond his stent, and on subtotal lesion in a diagonal coming off at the level of his stent, he had an occluded right c oronary filling by left-sided collaterals and a subtotal lesion in the obtuse marginal. The patient had Bari's testing bilaterally consistent with poor ulnar flow, and he had peripheral vascular disea se with documented high-grade lesion in his right common iliac as well as hip symptoms bilaterally dick ggestive of aortoiliac disease. He underwent surgical revascularization using a skeletonized in situ left JAZIEL graft to his LAD in order to maximize length on the graft, because of his hyperinflated khalif gs and reverse greater saphenous vein grafts to his compromised diagonal, obtuse marginal, and PDA. The patient was extubated in the operating room on no drips. He was transferred to the [facility] on postoperative day #1. Early on postoperative day #2, he went into atrial fibrillation, but conv erted on IV amiodarone. It took a few days to get him weaned off of his oxygen. Today, on postopera tive day #5, he is getting around well, he is in sinus rhythm with rates in the 70-80 range and blood pressure in the 100-125/65-80 range, his room air sats in the mid 90s. we will plan on sending him home now on oral amiodarone with a plan to complete a 6-day course of amiodarone 400 mg b.i.d. and th en a month of 200 mg once a day. He is on Coreg 3.125 mg b.i.d. His WM inhibitor has been held, be cause of blood pressure concerns. He is to continue his stool softeners and baby aspirin. We will g sb him a prescription for Vicodin as needed for pain and I have discussed with him strategies about dealing with constipation.
[2018-03-09 13:33] VITALS: TEMP 98
[2018-03-09 13:38] LABS: Actual Bicarbonate (HCO3a) 23.2 mEq/L (22-28); Analyzer IN Cardio OR; Base Excess (BEa) -4.5 mEq/L (-2.0 to +3.0); CO2 Tension 52.8 mmHg (35.0-45.0); Calcium, Ionized 1.14 mmol/L (1.12-1.30); Hemoglobin (Hb) 15.2 g/dL (14.0-18.0); Potassium - ABG Lab 5.12 mmol/L (3.70-5.30); pH, Arterial 7.26 (7.35-7.45)
[2018-03-09 13:39] LABS: Puncture Site ALIEN
[2018-03-09 15:26] VITALS: BP 144/83
--- NOTE | 2018-03-10 00:41 | DIS-2 ---
DATE OF ADMISSION: 03/03/2018 DATE OF DISCHARGE: 03/09/2018 RESIDENT: Erendira Partida DO. ADMITTING ATTENDING: Kota Ramon MD DISCHARGE ATTENDING: Ori Bartlett MD CONSULTATIONS: 1. Dr. Ti Jeff, Cardiology. 2. Dr. Satish Schuster. 3. Dr. Leroy Archuleta. PROCEDURE AND IMAGIN. Chest x-ray on 03/02/2018 no acute findings. 2. Cardiac catheterization on 03/03/2018 with severe right common iliac disease , occluded RCA, severe distal LAD, severe large obtuse marginal disease and large epicardial left to right collaterals, recommend CABG. 3. Coronary artery bypass graft on 03/04/[address] Satish Schuster. 4. Chest x-ray 03/05/2018 with postoperative changes. 5. Chest x-ray 03/07/2018 left chest tube removal and no pneumothorax. PRIMARY DIAGNOSES: 1. Jmw-EI-rulxwgq elevation myocardial infarction, status post coronary artery bypass graft. 2. Severe 3-vessel coronary artery disease. 3. Hypertension. 4. Postoperative atrial fibrillation. 5. Drug abuse. 6. Tobacco abuse. 7. UPJ obstruction with percutaneous nephrostomy tube in place. DISCHARGE MEDICATIONS: 1. Coreg 3.125 mg p.o. b.i.d. 2. Cipro 500 mg p.o. 3. Crestor 20 mg p.o. at bedtime. 4. [place] 5/325 one tab p.o. q.4 hours p.r.n. 5. Colace 100 mg p.o. b.i.d. 6. Aspirin 81 mg p.o. daily. 7. Amiodarone 400 mg p.o. b.i.d. for the next 6 days and then 200 mg p.o. daily thereafter for 1 month. DISCONTINUED MEDICATIONS: None. HISTORY OF PRESENT ILLNESS AND HOSPITAL COURSE: The patient is a 58-year-old male who presented to the ED with acute onset of substernal chest pain that awoke him from sleep and was associated with diaphoresis. Pain was relieved with nitroglycerin. Initial evaluation with laboratory show normal EKG, normal CBC. Coagulation studies within normal limits. Chemistry panel is unremarkable other than elevated AST of 85, ALT of 91, alkaline phosphatase 186 and low albumin at 3.4. Initial troponin is less than 0.010, up trended 3 hours later to 0.167 and then 2.285 down to 0.234. Repeat EKG shows no ST elevation. Cardiology was consulted and recommended cardiac catheterization. Cardiac catheterization revealed 3-vessel disease and Dr. Schuster was consulted for CABG. CABG was performed on 03/04/2018 and successful, patient recovered in ICU. Dr. Archuleta was consulted for vent management. He was weaned off the vent very easily and progressed to telemetry unit where the chest tube drains were pulled and patient complied with physical therapy and occupational therapy. Fasting lipid panel was checked and with elevated ASCVD risk. High intensity statin was started. Beta evelio was also started. Duglas- inhibitor was not started due to blood pressures being in the mid range 110s/ 80s. Postoperatively, the patient did develop atrial fibrillation with RVR. He was on amiodarone drip and continued for 48 hours He was transitioned off amiodarone drip after he converted to normal sinus rhythm and transitioned to p.o. amiodarone and as per Cardiology recommendations will be continued for 1 month. Note, patient has chronic hepatitis C, untreated, and a current UPJ stricture that he is being followed by Nephrology. Nephrostomy tube in place and draining well. Patient was counseled on drug cessation and tobacco cessation. DISPOSITION: Stable. DISCHARGE INSTRUCTIONS: 1. Location: The patient is now living with his ex- and complete physical therapy and cardiac rehabilitation. 2. Diet: Heart healthy. 3. Activity with cardiopulmonary limitations from recent CABG and surgical procedure including no heavy lifting. 4. Follow up in [address] Ti Jeff, [address] Rodo Lea , [address] Schuster and in 1 week with PCP, Dr. Ny at [facility]. [facility]
--- NOTE | 2018-03-11 15:26 | EKG ---
Test Reason : CP Blood Pressure : / mmHG Vent. Rate : 075 BPM Atrial Rate : 075 BPM P-R Int : 134 ms QRS Dur : 078 ms QT Int : 384 ms P-R-T Axes : 067 066 087 degrees QTc Int : 428 ms Normal sinus rhythm Nonspecific ST abnormality Abnormal ECG Confirmed by DELIA CORREA, KAMAR Smith ([id number]), editorial clerk HOLLAND WALKER ([id number]) on 03/11/2018 3:25:51 PM Referred By: Confirmed By:KAMAR LIN MD
== END 2018-03-09 15:35 | disposition home or self-care (01) | DRG 233 ==
LOC: ERS 23:42 → 2SW 03-03 00:10 → OBSVTOIN 03-03 14:26 → 2NO 03-03 22:37 → CCU 03-04 08:51 → 2NO 03-05 16:34
PROVIDERS: ADMIT Family Medicine; ATTEND Family Medicine
PROC: 4A023N7 Measurement of Cardiac Sampling and Pressure, Left Heart, Percutaneous Approach (ICD-10-PCS; 2018-03-03)
PROC: B2111ZZ Fluoroscopy of Multiple Coronary Arteries using Low Osmolar Contrast (ICD-10-PCS; 2018-03-03)
PROC: B2151ZZ Fluoroscopy of Left Heart using Low Osmolar Contrast (ICD-10-PCS; 2018-03-03)
PROC: 02100Z9 Bypass Coronary Artery, One Artery from Left Internal Mammary, Open Approach (ICD-10-PCS; principal; 2018-03-04)
PROC: 0212093 Bypass Coronary Artery, Three Arteries from Coronary Artery with Autologous Venous Tissue, Open Approach (ICD-10-PCS; 2018-03-04)
DX: I21.4 Non-ST elevation (NSTEMI) myocardial infarction (principal); J96.01 Acute respiratory failure with hypoxia; N13.30 Unspecified hydronephrosis; N13.6 Pyonephrosis; I25.10 Atherosclerotic heart disease of native coronary artery without angina pectoris; Z95.5 Presence of coronary angioplasty implant and graft; I10 Essential (primary) hypertension; I48.91 Unspecified atrial fibrillation; F17.210 Nicotine dependence, cigarettes, uncomplicated; Z93.6 Other artificial openings of urinary tract status; B18.2 Chronic viral hepatitis C; F12.10 Cannabis abuse, uncomplicated; F14.10 Cocaine abuse, uncomplicated; Z91.14 Patient's other noncompliance with medication regimen; E78.5 Hyperlipidemia, unspecified; Z79.899 Other long term (current) drug therapy; Z79.2 Long term (current) use of antibiotics; E87.6 Hypokalemia; K59.00 Constipation, unspecified
CPT/HCPCS: 36415; 36416; 36430; 71045; 80048; 80053; 80061; 80076; 80306; 80307; 82553; 82805; 83735; 83880; 84100; 84439; 84443; 84484; 85025; 85610; 85730; 86850; 86900; 86901; 93005; 93010; 93458; 93798; 94760; 99152; C1769; J0131; J0282; J1642; J1644; J1885; J2001; J2150; J2250; J2405; J2440; J2720; J3010; J3370; J3475; J3480; J7050; J7070; P9045; S0017; S0028

== ENCOUNTER 2018-04-22 06:49 | Day surgery (SDC) | payer OTHER ==
[2018-04-21 12:27] VITALS: BMI 21.6
[2018-04-22 07:36] VITALS: BP 149/90; TEMP 97.2
--- NOTE | 2018-04-22 10:26 | SPC ---
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 Patient requires frequent changes of the nephrostomy tube. Technique: After informed consent was obtained, the patient was placed on the angiography table in th e supine position. The left nephrostomy tube and surrounding area were meticulously prepped and drap ed in the usual sterile fashion. The catheter was punctured with an 18 gauge needle and nephrostogram was performed demonstrating dist al portion within the collecting system. Nephrostomy tube was cut and an attempt to exchange over a . 035 Velazquez guidewire was unsuccessful as the guidewire was unable to be placed distal to the tip, lik gorge related to stone formation within the distal portion of the catheter. As a result a .035 inch Gli dewire was then manipulated through the end hole of the nephrostomy tube. The nephrostomy tube was ex changed for a new 8 Kiswahili nephrostomy tube. The distal portion was placed within the renal pelvis an d contrast injection confirms placement in the collecting system. There is no evidence of hydronephro sis. Catheter was placed to gravity drainage and secured in place utilizing a dry sterile dressing. Fluoroscopy: Total fluoroscopy time was 1.5 minutes with total dose of 7325 mGy*cm^2. IMPRESSION: Technically successful nephrostomy tube replacement. POS: BERNABE
== END 2018-04-22 08:35 | disposition home or self-care (01) ==
LOC: SPEC 06:49
PROVIDERS: ATTEND Urology
PROC: 0T25X0Z Change Drainage Device in Kidney, External Approach (ICD-10-PCS; principal; 2018-04-22)
DX: N13.5 Crossing vessel and stricture of ureter without hydronephrosis (principal); Z79.82 Long term (current) use of aspirin; Z79.899 Other long term (current) drug therapy
CPT/HCPCS: 50431; 50435; 75984; C1729; C1769

== ENCOUNTER 2018-05-30 06:42 | Outpatient (CLI) | payer OTHER ==
[2018-05-30 12:08] LABS: Bilirubin Negative (Negative); Blood, Urine Negative (Negative); Clarity CLEAR (Clear); Glucose, Urine (Dipstick) Negative (Negative); Leukocyte Small (Negative); Nitrite Positive (Negative); Protein, Urine (Dipstick) Negative (Neg-Trace); Specific Gravity, Urine 1.011 (1.002-1.036); Urobilinogen 0.2 mg/dL (0.2-1.0); pH, Urine 5.5 (5.0-9.0)
[2018-05-30 12:27] LABS: PTT 33.3 SEC (22.9-36.1); Prothrombin Time 13.4 SEC (12.0-14.7)
[2018-05-30 12:55] LABS: Bacteria/HPF 1+ HPF (None Seen); Hyaline Casts/LPF NONE SEEN LPF (0-3 Hyaline); RBC/HPF None Seen HPF (0-3); Squamous Epithelial 0-3 HPF (0-3)
[2018-05-30 12:57] LABS: Anion Gap 15 mmol/L (10-20); BUN (Urea Nitrogen) 12 mg/dL (8.4-25.7); Calc. Creatinine Clearance 0 mL/min (70-130); Calcium 9.6 mg/dL (7.8-10.44); Carbon Dioxide 21 mmol/L (22-29); Chloride 107 mmol/L (98-107); Estimated GFR-MDRD Greater than 90; Glucose 76 mg/dL (70-105); Potassium 4.7 mmol/L (3.5-5.1); Sodium 138 mmol/L (136-145)
[2018-05-30 13:00] LABS: Hemoglobin 16.8 g/dL (14.0-18.0); Mean Corpuscular HGB CONC 33.6 g/dL (32.0-36.0); Mean Corpuscular Hemoglobin 33.4 pg (27.0-31.0); Mean Corpuscular Volume 99.2 fL (78.0-98.0); Mean Platelet Volume 9.2 fL (7.4-10.4); Platelet Count 118 thou/uL (130-400); RBC Distribution Width 11.9 % (11.5-14.5); Red Blood Cell (RBC) Count 5.04 mill/uL (4.70-6.10); White Blood Cell (WBC) Count 8.7 thou/uL (4.8-10.8)
== END 2018-05-30 06:43 | disposition home or self-care (01) ==
LOC: LABBT 06:42
PROVIDERS: ATTEND Urology
DX: Z01.818 Encounter for other preprocedural examination (principal); Q62.11 Congenital occlusion of ureteropelvic junction
CPT/HCPCS: 80048; 81001; 85027; 85610; 85730; 87077; 87086; 87186; 93005; 93010

== ENCOUNTER 2018-06-23 07:25 | Inpatient (IN) | payer OTHER ==
[2018-06-23 09:21] LABS: Hemoglobin 15.6 g/dL (14.0-18.0); Mean Corpuscular HGB CONC 33.1 g/dL (32.0-36.0); Mean Corpuscular Hemoglobin 32.5 pg (27.0-31.0); Mean Corpuscular Volume 98.3 fL (78.0-98.0); Mean Platelet Volume 8.2 fL (7.4-10.4); Platelet Count 128 thou/uL (130-400); RBC Distribution Width 11.9 % (11.5-14.5); White Blood Cell (WBC) Count 7.6 thou/uL (4.8-10.8)
[2018-06-23 09:28] LABS: INR-International Normal Ratio 1.1; Prothrombin Time 14.3 SEC (12.0-14.7)
[2018-06-23 09:29] LABS: PTT 33.9 SEC (22.9-36.1)
[2018-06-23 09:42] LABS: Anion Gap 10 mmol/L (10-20); BUN (Urea Nitrogen) 12 mg/dL (8.4-25.7); Calc. Creatinine Clearance 0 mL/min (70-130); Calcium 8.9 mg/dL (7.8-10.44); Carbon Dioxide 23 mmol/L (22-29); Chloride 109 mmol/L (98-107); Estimated GFR-MDRD Greater than 90; Glucose 83 mg/dL (70-105); Potassium 4.1 mmol/L (3.5-5.1); Sodium 138 mmol/L (136-145)
[2018-06-23] MEDS ORDERED: Midazolam HCl 2 mg/2 ml Vial ONE (09:50)
[2018-06-23] MEDS ORDERED: Dexamethasone 4 mg/ml Vial ONE (09:50)
[2018-06-23] MEDS ORDERED: Fentanyl 100 MCG/2 ML VIAL ONE ×6 (09:50→16:18)
[2018-06-23] MEDS ORDERED: Indocyanine Green 25 MG/10 ML VIAL ONE (09:53)
[2018-06-23] MEDS ORDERED: Famotidine/PF 20 mg/2ml Vial ONE (10:02)
[2018-06-23] MEDS ORDERED: Promethazine HCl 25 MG/ML VIAL SLOW IVP PRN (11:51)
[2018-06-23] MEDS ORDERED: Promethazine HCl 25 MG/ML VIAL IM PRN (11:51)
[2018-06-23] MEDS ORDERED: HYDROmorphone 2 MG/ML VIAL SLOW IVP PRN (11:51)
[2018-06-23] MEDS ORDERED: Meperidine HCl/PF 25 MG/ML VIAL SLOW IVP PRN (11:51)
[2018-06-23] MEDS ORDERED: Neomycin-Polymyxin 1 ML AMP ONE (12:48)
[2018-06-23] MEDS ORDERED: Bupivacaine HCl 0.5%/Epinephrine 1:200,000/PF 30 ml Vial ONE (13:47)
[2018-06-23] MEDS ORDERED: Lidocaine 1% PF 5 ML VIAL ONE (13:51)
[2018-06-23] MEDS ORDERED: ePHEDrine 50 MG/ML VIAL ONE (13:51)
[2018-06-23] MEDS ORDERED: Ondansetron PF 4 MG/2 ML Vial ONE (13:51)
[2018-06-23] MEDS ORDERED: Glycopyrrolate 0.2 MG/ML 5 ML SYRINGE ONE (13:51)
[2018-06-23] MEDS ORDERED: PROPOFOL 200 MG/20 ML VIAL ONE (13:51)
[2018-06-23] MEDS ORDERED: Dexamethasone 20 MG/5 ML VIAL ONE (13:51)
[2018-06-23] MEDS ORDERED: Rocuronium Bromide 10 MG/ML (10ML VIAL) ONE (13:51)
[2018-06-23 15:28] LABS: #Monocytes 0.1 thou/uL (0.11-0.59); #Neutrophils 5.1 thou/uL (1.40-6.50); %Basophils 0.7 % (0.0-1.0); %Eosinophils 0.6 % (0.0-10.0); %Lymphocytes 16.4 % (21.0-51.0); %Monocytes 1.6 % (0.0-10.0); %Neutrophils 80.6 % (42.0-75.0); Hemoglobin 16.2 g/dL (14.0-18.0); Mean Corpuscular HGB CONC 33.2 g/dL (32.0-36.0); Mean Corpuscular Hemoglobin 32.9 pg (27.0-31.0); Mean Platelet Volume 8.2 fL (7.4-10.4); Platelet Count 112 thou/uL (130-400); RBC Distribution Width 11.9 % (11.5-14.5); Red Blood Cell (RBC) Count 4.91 mill/uL (4.70-6.10); White Blood Cell (WBC) Count 6.3 thou/uL (4.8-10.8)
[2018-06-23 15:48] LABS: Anion Gap 12 mmol/L (10-20); BUN (Urea Nitrogen) 12 mg/dL (8.4-25.7); Calc. Creatinine Clearance 0 mL/min (70-130); Calcium 8.6 mg/dL (7.8-10.44); Carbon Dioxide 22 mmol/L (22-29); Chloride 108 mmol/L (98-107); Estimated GFR-MDRD Greater than 90; Glucose 148 mg/dL (70-105); Potassium 4.8 mmol/L (3.5-5.1); Sodium 137 mmol/L (136-145)
[2018-06-23] MEDS ORDERED: oxyCODONE 5 MG TAB PO PRN ×2 (16:24)
[2018-06-23] MEDS ORDERED: diphenhydrAMINE 25 MG CAP PO PRN (16:24)
[2018-06-23] MEDS ORDERED: Fentanyl 100 MCG/2 ML VIAL SLOW IVP PRN (16:24)
[2018-06-23] MEDS ORDERED: Hyoscyamine Sulfate SL 0.125 mg Tablet SL PRN (16:24)
[2018-06-23] MEDS ORDERED: Mag-Al 1200 mg/1200 mg/30 ML UDCUP PO PRN (16:24)
[2018-06-23] MEDS ORDERED: Oxybutynin 5 MG TAB PO PRN (16:24)
[2018-06-23] MEDS ORDERED: Ondansetron PF 4 MG/2 ML Vial IVP PRN (16:24)
[2018-06-23] MEDS ORDERED: hydrALAZINE 20 MG/ML VIAL SLOW IVP PRN (16:24)
[2018-06-23] MEDS ORDERED: Bisacodyl 10 MG SUPP PR PRN (16:24)
[2018-06-23] MEDS: Sodium Chloride 0.9% 1,000 ML IV SCH (16:31)
[2018-06-23] MEDS ORDERED: Carvedilol 3.125 MG TAB ONE (16:34)
[2018-06-23] MEDS: Carvedilol 3.125 MG TAB PO SCH (16:35)
[2018-06-23] MEDS ORDERED: hydrALAZINE 20 MG/ML VIAL ONE (16:47)
--- NOTE | 2018-06-23 17:06 | OP ---
DATE OF PROCEDURE: 06/23/2018 SERVICE: Urology. PREOPERATIVE DIAGNOSIS: Left ureteropelvic junction obstruction. POSTOPERATIVE DIAGNOSIS: Left ureteropelvic junction obstruction. PROCEDURE PERFORMED: Robot-assisted laparoscopic pyeloplasty, dismembered Bereket-Marisol procedure. INDICATIONS FOR PROCEDURE: Mr. Gutierrez is a 58-year-old white male, who presented with Dietl's crisis and significant left flank pain. He was found almost a year ago to have a left UPJ obstruction secondary to a lower pole crossing vessel. 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 We have discussed the surgery in detail with all risks and benefits discussed and he has agreed to proceed forward. DESCRIPTION OF PROCEDURE: After identification of armband and verification of consent, the patient was brought back to the operating room where he underwent general anesthesia with endotracheal intubation. He was then placed in the modified right lateral decubitus position with the bed flexed. All pressure points were padded. He was then prepped and draped in usual sterile fashion. After appropriate time-out, a Veress needle entry was obtained through the umbilicus with insufflation under high-flow low-pressure. Once pneumoperitoneum was achieved, the ports were placed using an 11 blade and incised the skin with a 12 mm port near the umbilicus lateral to the rectus muscle. Two additional 8 mm ports and an insurance claims assistant 11 mm port. The robot was then docked and the robotic portion of procedure begun. The colon was reflected medially to expose the retroperitoneum. There was a significant amount of colonic adhesions for unknown reasons. Once the kidney was able to be visualized, the lower pole was dissected free until the psoas muscle could be identified. The ureter was identified in close proximity next to the gonadal vein, which was spared. The ureter was dissected proximally until the lower pole crossing vessel was identified. The renal pelvis was dissected free from the surrounding tissues. Once everything had been dissected free, the lower pole vessel was skeletonized which had an associated vein in close proximity. Once the ureter was adequately mobilized, the ureter was incised just below the crossing vessel and the renal pelvis was brought up on the opposite side to bringing up anteriorly over the lower pole vessels. The UPJ was excised and sent off for routine pathologic evaluation. The distal ureter was spatulated and a Zana needle was brought in on 0 silk to stabilize the renal pelvis, which was brought into the peritoneum. The anastomosis was then done using a 4-0 Vicryl on an RB1 needle to first run the posterior plate of the renal pelvis to the posterior ureter. Once this was adequately sewn shut, the 0.035 Glidewire was brought in and fed down the ureter down to the bladder. A 6 x 26 double-J stent was advanced over the Glidewire in a backward fashion to place the bladder into the loop into the bladder. The wire was then removed with creating a loop on the proximal end, which was then fed into the renal pelvis. The anterior aspect of the renal pelvis was then closed with a 2nd running 4-0 Vicryl. This resulted in good approximation of the tissues. Upon completion, the anastomosis looked very good. Some of Gerota fascia was mobilized to create a flap to wrap around the anastomosis. The stay stitch with a Zana needle and a 0 silk was removed. Moe was then sprayed into the field and once adequately coated, a LONG drain brought in and placed near the anastomosis but not directly on the anastomosis. The colon was attempted to be put back into its normal location. The robot was then undocked and the camera port was closed using a Matt Mel with 0 Vicryl. Pneumoperitoneum was taken down. A drain stitch with a 2-0 nylon was placed on the patient's drain and the remaining skin sites was closed with a 4-0 Monocryl in a subcu fashion. The patient was then taken out of position, awakened, taken to PACU for recovery in stable condition. COMPLICATIONS: None. ESTIMATED BLOOD LOSS: 93 mL. RETAINED TUBES AND DRAINS: #19 LONG drain. SPECIMENS: Ureteropelvic junction. DISPOSITION: The patient will be admitted to the hospital and will be kept until he is adequately recovered. He will then be discharged when stable and follow up with me on an outpatient basis. Job ID: [id number]
[2018-06-23] MEDS: Acetaminophen 500 MG TAB PO SCH ×2 (18:34→23:57)
[2018-06-23] MEDS: Ketorolac Tromethamine 30 MG/ML VIAL IVP SCH ×2 (18:35→23:56)
[2018-06-23] MEDS: Docusate 100 MG CAP PO SCH (20:27)
[2018-06-23] MEDS: Rosuvastatin 20 MG TAB PO SCH (20:27)
[2018-06-23 23:01] VITALS: BMI 21.6
[2018-06-24] MEDS: Sodium Chloride 0.9% 1,000 ML IV SCH (00:03)
[2018-06-24 05:41] LABS: #Basophils 0.1 thou/uL (0.0-0.2); #Monocytes 0.5 thou/uL (0.11-0.59); #Neutrophils 12.1 thou/uL (1.40-6.50); %Basophils 0.4 % (0.0-1.0); %Eosinophils 0.1 % (0.0-10.0); %Lymphocytes 13.6 % (21.0-51.0); %Monocytes 3.5 % (0.0-10.0); %Neutrophils 82.4 % (42.0-75.0); Hemoglobin 15.9 g/dL (14.0-18.0); Mean Corpuscular Hemoglobin 31.8 pg (27.0-31.0); Mean Corpuscular Volume 99.3 fL (78.0-98.0); Mean Platelet Volume 8.8 fL (7.4-10.4); Platelet Count 122 thou/uL (130-400); RBC Distribution Width 12.1 % (11.5-14.5); Red Blood Cell (RBC) Count 5.01 mill/uL (4.70-6.10); White Blood Cell (WBC) Count 14.7 thou/uL (4.8-10.8)
[2018-06-24 06:09] LABS: Anion Gap 10 mmol/L (10-20); BUN (Urea Nitrogen) 11 mg/dL (8.4-25.7); Calc. Creatinine Clearance 85 mL/min (70-130); Calcium 8.6 mg/dL (7.8-10.44); Carbon Dioxide 24 mmol/L (22-29); Chloride 106 mmol/L (98-107); Estimated GFR-MDRD Greater than 90; Glucose 132 mg/dL (70-105); Potassium 4.2 mmol/L (3.5-5.1); Sodium 136 mmol/L (136-145)
[2018-06-24] MEDS: traMADol HCl 50 MG TAB PO SCH ×4 (06:18→23:47)
[2018-06-24] MEDS: Acetaminophen 500 MG TAB PO SCH ×4 (06:19→23:47)
[2018-06-24] MEDS: Ketorolac Tromethamine 30 MG/ML VIAL IVP SCH ×2 (06:20→13:58)
[2018-06-24] MEDS: Lisinopril 2.5 MG TAB PO SCH (09:31)
[2018-06-24] MEDS: Docusate 100 MG CAP PO SCH ×2 (09:33→21:01)
[2018-06-24] MEDS: Carvedilol 3.125 MG TAB PO SCH ×2 (09:33→18:22)
--- NOTE | 2018-06-24 15:17 | PRG ---
DATE OF SERVICE: 06/24/2018 SUBJECTIVE: The patient states he is doing okay. He has a little sore on his left side, but otherwise states that his pain control has been good. He has had no nausea or vomiting, and he is hungry today. He has not yet been out of bed. He denies any fevers, chills, shortness of breath, or chest pain. OBJECTIVE: VITAL SIGNS: Temperature 97.8, pulse 71, respirations 18, blood pressure 128/74, saturation 95% on room air. GENERAL: No apparent distress. CARDIOVASCULAR: Regular rate and rhythm. Well-healed median sternotomy. ABDOMEN: Soft, minimally tender to palpation, especially on the left. Incision is clean, dry, and intact. LONG is serosanguineous. : Doll catheter in place with pink colored urine. EXTREMITIES: No clubbing, cyanosis, or edema. SCDs in place. LABORATORY DATA: On laboratory evaluation, the full set of labs in the [facility] system, which I have reviewed. Of note, the patient's white count is 14.7, the hemoglobin of 15.9, creatinine is 0.86. In's and out's, LONG put out 50 mL with 1250 out of the Doll. ASSESSMENT AND PLAN: A 58-year-old white male with left ureteropelvic junction obstruction, status post left robotic-assisted laparoscopic pyeloplasty postoperative day 1, recovering appropriately. His nephrostomy tube has already been removed. He is doing very well from a recovery standpoint. I will advance his diet to regular and have encouraged him to get out of bed and walk today with assistance. He is to continue using his incentive spirometer. Depending on how he feels this afternoon, he may be potentially ready for discharge today, but if he is not quite ready yet, we can send him home tomorrow. I will continue to monitor and see how he recovers. 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 Job ID: [id number]
--- NOTE | 2018-06-24 17:22 | RAD ---
ABDOMEN ONE VIEW: 06/24/18 HISTORY: Left ureteral obstruction. FINDINGS: Gas throughout the colon. Bowel gas pattern is nonspecific. Double pigtail stent over the course of the left ureter is in place. Upper pigtail overlies the expec jaylan location of the left renal pelvis, although the renal shadow is obscured by bowel content. Calcification over the arterial structures. IMPRESSION: Left ureteral stent is in good radiographic position. Atherosclerosis. POS: BERNABE
[2018-06-24] MEDS: Rosuvastatin 20 MG TAB PO SCH (21:00)
[2018-06-24] MEDS: CeleCOXIB 100 MG CAP PO SCH (21:00)
[2018-06-25] MEDS: Acetaminophen 500 MG TAB PO SCH ×2 (05:25→12:51)
[2018-06-25] MEDS: traMADol HCl 50 MG TAB PO SCH ×2 (05:26→12:51)
[2018-06-25 06:19] LABS: #Lymphocytes 2.4 thou/uL (1.20-3.40); #Neutrophils 11.8 thou/uL (1.40-6.50); %Basophils 0.1 % (0.0-1.0); %Monocytes 6.4 % (0.0-10.0); %Neutrophils 77.5 % (42.0-75.0); Hemoglobin 14.9 g/dL (14.0-18.0); Mean Corpuscular HGB CONC 32.5 g/dL (32.0-36.0); Mean Corpuscular Hemoglobin 32.5 pg (27.0-31.0); Mean Corpuscular Volume 99.9 fL (78.0-98.0); Mean Platelet Volume 8.5 fL (7.4-10.4); Platelet Count 116 thou/uL (130-400); RBC Distribution Width 12.2 % (11.5-14.5); White Blood Cell (WBC) Count 15.2 thou/uL (4.8-10.8)
[2018-06-25 06:36] LABS: Anion Gap 8 mmol/L (10-20); BUN (Urea Nitrogen) 13 mg/dL (8.4-25.7); Calc. Creatinine Clearance 94 mL/min (70-130); Calcium 8.7 mg/dL (7.8-10.44); Carbon Dioxide 24 mmol/L (22-29); Chloride 110 mmol/L (98-107); Estimated GFR-MDRD Greater than 90; Glucose 108 mg/dL (70-105); Potassium 4.3 mmol/L (3.5-5.1); Sodium 138 mmol/L (136-145)
[2018-06-25] MEDS: Carvedilol 3.125 MG TAB PO SCH (08:30)
[2018-06-25] MEDS: CeleCOXIB 100 MG CAP PO SCH (08:30)
[2018-06-25] MEDS: Docusate 100 MG CAP PO SCH (08:31)
[2018-06-25] MEDS: Lisinopril 2.5 MG TAB PO SCH (08:31)
[2018-06-25 12:24] VITALS: BP 104/97; TEMP 98
--- NOTE | 2018-06-27 12:47 | DIS ---
DATE OF ADMISSION: 06/23/2018 DATE OF DISCHARGE: 06/25/2018 HISTORY OF PRESENT ILLNESS: Mr. Gutierrez is a 58-year-old male, admitted for left robotic pyeloplasty, which was uneventful. He did well postop, did not feel comfortable going home yesterday. Today, he desires to be discharged. Physical exam demonstrates he is afebrile. Pain is adequately controlled with p.o. pain medication. LONG creatinine has been ordered demonstrating levels consistent with peritoneal fluid. His labs are stable. Hemoglobin of 14.9, creatinine of 0.78. INPATIENT PROCEDURES: Left robotic pyeloplasty, ureteral stent placement, and nephrostomy tube removal. CONDITION: Stable. DISPOSITION: To home with good home support. DISCHARGE INSTRUCTIONS: Discharge instructions in chart. Antibiotics and pain medication has been already sent. appointment in chart. Job ID: [id number] MTDD
== END 2018-06-25 14:02 | disposition home or self-care (01) | DRG 661 ==
LOC: SURG A 07:25
PROVIDERS: ADMIT Urology; ATTEND Urology
PROC: 0TQ44ZZ Repair Left Kidney Pelvis, Percutaneous Endoscopic Approach (ICD-10-PCS; principal; 2018-06-23)
PROC: 8E0W4CZ Robotic Assisted Procedure of Trunk Region, Percutaneous Endoscopic Approach (ICD-10-PCS; 2018-06-23)
DX: N13.5 Crossing vessel and stricture of ureter without hydronephrosis (principal); I25.10 Atherosclerotic heart disease of native coronary artery without angina pectoris; Z95.1 Presence of aortocoronary bypass graft
CPT/HCPCS: 36415; 74018; 80048; 82570; 85025; 85027; 85610; 85730; 86850; 86900; 86901; 88305; 90471; 90686; C1769; G0008; J0131; J0360; J0670; J1100; J1885; J1956; J2001; J2250; J2405; J2704; J3010; J3490; S0028

== ENCOUNTER 2018-08-29 10:19 | Outpatient (CLI) | payer OTHER ==
--- NOTE | 2018-08-29 11:04 | ULT ---
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 TECHNIQUE: Multiplanar grayscale sonographic imaging of the kidneys and urinary bladder obtained. FINDINGS: The right kidney measures 11.5 x 4.3 x 5.2 cm, with a cortical thickness of 1.3 cm. No righ t-sided renal mass, hydronephrosis, or stone. Left kidney measured 12.8 x 6.4 x 5.2 cm with a cortical thickness of approximately 1.3 cm. There is mild prominence of the left renal pelvis which is decreased in conspicuity when compared to the prior examination. Urinary bladder is grossly unremarkable, with a volume of 58 cc. Prostate gland measures 3.9 x 2 0.5 to 3.0 cm with a central area of increased echogenicity and shado wing, possibly on the basis of calcification. Small cyst in lower pole of left kidney noted measuring 1.3 x 1.2 x 1.2 cm. IMPRESSION: Mild prominence of the left renal pelvis, consistent with the provided history of UPJ obs truction. This is less conspicuous than on the 2018 examination. No acute findings.
== END 2018-08-29 10:20 | disposition home or self-care (01) ==
LOC: ULT 10:19
PROVIDERS: ATTEND Urology
DX: Q62.11 Congenital occlusion of ureteropelvic junction (principal)
CPT/HCPCS: 76770

== ENCOUNTER 2018-12-28 10:40 | Outpatient (CLI) | payer OTHER ==
[~2018-12-28 10:40] MED LIST changes: +Furosemide 40 MG/4 ML VIAL ONE; -Iopamidol 300 61% 30 ML VIAL ONE
--- NOTE | 2018-12-28 14:20 | NM ---
NUCLEAR MEDICINE RENOGRAM WITH LASIX: 12/28/18 INDICATION: Congenital occlusion of the UPJ junction. COMPARISON: Renal ultrasound dated 08/29/[address] aortic dissection protocol dated 07/27/17. FINDINGS: RADIOPHARMACEUTICAL: 8.1 millicuries technetium 99m MAG3. MEDICATION: 34 mg of IV Lasix. FINDINGS: The sequential image demonstrates appropriate blood pool activity with symmetric enhancement of both kidneys. The split function on the left was 45.3% and on the right was 54.7%. Time to max on the left was 2.15 minutes and on the right 2.3 minutes. A time of one half max on the left was 11.8 minutes. The time of one half max on the right was 9.19 m inutes. Following injection of Lasix, there is fairly rapid symmetrical excretion. Postvoid residual demonstr ate mild amount of residual radiotracer activity within the renal collecting system, left greater olga n right. IMPRESSION: Nonobstructive pyelocaliectasis of the left renal collecting system. POS: TPC
== END 2018-12-28 10:41 | disposition home or self-care (01) ==
LOC: NM 10:40
PROVIDERS: ATTEND Urology
DX: Q62.11 Congenital occlusion of ureteropelvic junction (principal); N13.30 Unspecified hydronephrosis
CPT/HCPCS: 78708; A4641; A9562; J1940

== ENCOUNTER 2020-05-10 10:09 | Emergency (ER) | payer MEDICARE, SELFPAY ==
--- NOTE | 2020-05-10 10:45 | RAD ---
Exam: Chest one view HISTORY:Shortness of breath. Dyspnea. Fluid overload. Comparison: 03/07/2018 FINDINGS: Cardiac silhouette:Normal cardiac silhouette. There are sternotomy wires. Aorta: Tortuous Pulmonary vessels: Normal Costophrenic angles: Clear LUNGS: Chronic changes of the lung parenchyma, without mass or consolidation. Pneumothorax: None Osseous abnormalities: None IMPRESSION: No acute cardiopulmonary process.
[2020-05-10 11:03] LABS: #Basophils 0.1 thou/uL (0.0-0.2); #Eosinphils 0.3 thou/uL (0.0-0.7); #Lymphocytes 2.8 thou/uL (1.20-3.40); #Monocytes 0.9 thou/uL (0.11-0.59); #Neutrophils 3.9 thou/uL (1.40-6.50); %Basophils 0.9 % (0.0-1.0); %Eosinophils 4.3 % (0.0-10.0); %Lymphocytes 35.1 % (21.0-51.0); %Neutrophils 48.7 % (42.0-75.0); Hemoglobin 13.8 g/dL (14.0-18.0); Mean Corpuscular HGB CONC 33.6 g/dL (32.0-36.0); Mean Corpuscular Hemoglobin 34.7 pg (27.0-31.0); Mean Platelet Volume 8.8 fL (7.4-10.4); Platelet Count 77 thou/uL (130-400); Red Blood Cell (RBC) Count 3.98 mill/uL (4.70-6.10); White Blood Cell (WBC) Count 8.1 thou/uL (4.8-10.8)
[2020-05-10 11:25] LABS: INR-International Normal Ratio 1.4; PTT 33.1 sec (22.9-36.1); Prothrombin Time 17.1 sec (12.0-14.7)
[2020-05-10 11:39] LABS: ALT (SGPT) 41 U/L (8-55); AST (SGOT) 79 U/L (5-34); Albumin 1.9 g/dL (3.5-5.0); Alkaline Phosphatase 218 U/L (40-110); Anion Gap 11 mmol/L (10-20); BUN (Urea Nitrogen) 10 mg/dL (8.4-25.7); Bilirubin, Total 1.8 mg/dL (0.2-1.2); Calc. Creatinine Clearance 0 mL/min (70-130); Calcium 7.5 mg/dL (7.8-10.44); Carbon Dioxide 24 mmol/L (22-29); Chloride 107 mmol/L (98-107); Globulin 4.8 g/dL (2.4-3.5); Glucose 132 mg/dL (70-105); Potassium 4.1 mmol/L (3.5-5.1); Protein, Total 6.7 g/dL (6.0-8.3); Sodium 138 mmol/L (136-145)
[2020-05-10] MEDS ORDERED: Albumin 25% 25 GM/100 ML BOT IVPB SCH (13:00)
[2020-05-10 13:28] LABS: Bacteria/HPF 2+ HPF (None Seen); Bilirubin Negative (Negative); Blood, Urine 3+ (Negative); Calcium Oxalate Crystals 1+ HPF (None Seen); Clarity Turbid (Clear); Glucose, Urine (Dipstick) Normal (Negative); Ketone, Urine Negative (Negative); Leukocyte 250 Leu/uL (Negative); Nitrite Negative (Negative); Protein, Urine (Dipstick) 20 mg/dL (Neg-Trace); RBC/HPF Greater than 50 HPF (0-3); Specific Gravity, Urine 1.026 (1.002-1.036); Squamous Epithelial 0-3 HPF (0-3); Urobilinogen 3 mg/dL (Less than 2); WBC/HPF 21-50 HPF (0-3)
[2020-05-10 14:18] LABS: Lactic Acid 2.7 mmol/L (0.5-2.2)
[2020-05-10 14:30] LABS: RBC Count-Automated (BF) 127 /cu.mm; WBC/Nucleated-Auto (BF) 64 uL
[2020-05-10 15:21] LABS: BF Color Yellow; Body Fluid Source Peritoneal Fluid; Clarity Hazy (Clear); Tube # 1
[2020-05-10 15:24] LABS: BF Segmented Neutrophils 11 %; Cell Count Non Hematic 50 %; Lymphocytes 39 %
== END 2020-05-10 15:50 | disposition home or self-care (01) ==
LOC: ERS 10:09
DX: K74.60 Unspecified cirrhosis of liver (principal); R18.8 Other ascites; I25.2 Old myocardial infarction; I10 Essential (primary) hypertension; E78.5 Hyperlipidemia, unspecified; F17.210 Nicotine dependence, cigarettes, uncomplicated; Z79.82 Long term (current) use of aspirin; Z79.899 Other long term (current) drug therapy
CPT/HCPCS: 71045; 80053; 82042; 83605; 83880; 84157; 84484; 85025; 85610; 85730; 87070; 87086; 87205; 89051; 93005; 94760; P9047; 36415; 49082; 51701; 81003; 81015; 85060; 96365